=== PATIENT | female | born 1935 | race Caucasian/White ===

== ENCOUNTER → 2016-08-21 | Outpatient (CLI) | payer MEDICARE, BC | END | disposition home or self-care (01) | LOC: LABWHC1 09:46 | PROVIDERS: ATTEND Internal Medicine Interventional Cardiology | DX: E78.2 Mixed hyperlipidemia (principal) | CPT/HCPCS: 36415; 80061; 84443; 84450; 84460 ==

== ENCOUNTER → 2017-03-10 | Outpatient (CLI) | payer MEDICARE, BC ==
[2017-03-10 10:53] LABS: ALT 29 U/L (9-52); AST 17 U/L (14-36); Alkaline Phosphatase 84 U/L (38-126); Anion Gap 8 mmol/L; Blood Urea Nitrogen 15 mg/dL (7-17); Calcium 9.5 mg/dL (8.4-10.2); Carbon Dioxide 28 mmol/L (22-30); Chloride 107 mmol/L (98-107); Cholesterol 185 mg/dL (<200); Glucose 124 mg/dL (74-99); HDL Cholesterol 92 mg/dL (40-60); Non-African American GFR(MDRD) >60 (>60 ml/min/1.73 sqM); Potassium 4.2 mmol/L (3.5-5.1); Sodium 143 mmol/L (137-145); Total Bilirubin 0.5 mg/dL (0.2-1.3); Total Protein 6.4 g/dL (6.3-8.2)
== END | disposition home or self-care (01) ==
LOC: LABWHC1 09:36
PROVIDERS: ATTEND Internal Medicine Interventional Cardiology
DX: E78.2 Mixed hyperlipidemia (principal)
CPT/HCPCS: 36415; 80053; 80061

== ENCOUNTER 2017-06-18 14:38 | Emergency (ER) | payer MEDICARE, BC ==
--- NOTE | 2017-06-18 15:15 | ED ---
General Adult HPI - General Chief complaint: Neuro Symptoms/Deficit Stated complaint: left side facial numbness Time Seen by Provider: 06/18/17 14:55 Source: patient, RN notes reviewed Mode of arrival: ambulatory Limitations: no limitations - History of Present Illness Initial comments: 81-year-old female presents to the emergency department with a chief complaint of numbness to the left side of the face. Patient states this started on Thursday. Patient states she can still feel she can still move the face she still has strength it just feels different in comparison to the right side. 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 She states is been like this since Thursday. Patient states that it comes and goes at random. She went to her doctor today and was referred here.Patient denies any recent fever, chills, shortness of breath, chest pain, back pain, abdominal pain, nausea vomiting, numbness or tingling, dysuria or hematuria, constipation or diarrhea, headaches or visual changes, or any other current symptoms. - Related Data Home Medications Medication Instructions Recorded Confirmed Aspirin 325 mg PO DAILY 10/24/15 06/18/17 Cevimeline [Evoxac] 30 mg PO BID 10/24/15 06/18/17 DULoxetine HCL [Cymbalta] 30 mg PO DAILY 10/24/15 06/18/17 Folic Acid 1 mg PO DAILY 10/24/15 06/18/17 Levothyroxine Sodium [Levoxyl] 112 mcg PO DAILY 10/24/15 06/18/17 Methotrexate Sodium [Methotrexate] 17.5 mg PO WE 10/24/15 06/18/17 Metoprolol Tartrate 25 mg PO BID 10/24/15 06/18/17 Nitroglycerin Sl Tabs [Nitrostat] 0.4 mg SUBLINGUAL Q5M PRN 10/24/15 06/18/17 Omeprazole 20 mg PO DAILY 10/24/15 06/18/17 Cholecalciferol (Vitamin D3) 2,000 unit PO MOTH 06/18/17 06/18/17 [Vitamin D3] Cyanocobalamin [Vitamin B-12] 500 mcg PO TUFR 06/18/17 06/18/17 HYDROcodone/APAP 10-325MG [Wallis 1 tab PO Q6H PRN 06/18/17 06/18/17 10-325] Pregabalin [Lyrica] 75 mg PO BID 06/18/17 06/18/17 Simvastatin [Zocor] 40 mg PO HS 06/18/17 06/18/17 Allergies Allergy/AdvReac Type Severity Reaction Status Date / Time No Known Allergies Allergy Verified 06/18/17 15:44 Review of Systems ROS Statement: Those systems with pertinent positive or pertinent negative responses have been documented in the HPI. ROS Other: All systems not noted in ROS Statement are negative. Past Medical History Past Medical History: Osteoarthritis (OA) Additional Past Medical History / Comment(s): Shogrens, rohit, angina History of Any Multi-Drug Resistant Organisms: None Reported Past Surgical History: Cholecystectomy, Heart Catheterization With Stent, Hysterectomy, Tonsillectomy Additional Past Surgical History / Comment(s): Varicose vein repair, cataract surgery Past Psychological History: No Psychological Hx Reported Smoking Status: Never smoker Past Alcohol Use History: None Reported Past Drug Use History: None Reported General Exam Limitations: no limitations General appearance: alert, in no apparent distress Eye exam: Present: normal appearance, PERRL, EOMI. Absent: scleral icterus, conjunctival injection, periorbital swelling ENT exam: Present: normal exam, mucous membranes moist Neck exam: Present: normal inspection. Absent: tenderness, meningismus, lymphadenopathy Respiratory exam: Present: normal lung sounds bilaterally. Absent: respiratory distress, wheezes, rales, rhonchi, stridor Cardiovascular Exam: Present: regular rate, normal rhythm, normal heart sounds. Absent: systolic murmur, diastolic murmur, rubs, gallop, clicks Extremities exam: Present: normal inspection, full ROM, normal capillary refill. Absent: tenderness, pedal edema, joint swelling, calf tenderness Back exam: Present: normal inspection Neurological exam: Present: alert, oriented X3, CN II-XII intact, normal gait, reflexes normal. Absent: motor sensory deficit (Patient claims is sensation difference however she is able to feel soft light touch in comparison to firm hard touch) Psychiatric exam: Present: normal affect, normal mood Skin exam: Present: warm, dry, intact, normal color. Absent: rash Course Vital Signs 06/18/17 06/18/17 14:40 16:07 Temperature 98.0 F Pulse Rate 82 74 Respiratory 18 18 Rate Blood Pressure 115/64 113/59 O2 Sat by Pulse 98 98 Oximetry - Reevaluation(s) Reevaluation #1: 06/18/17 17:16 Patient currently does take an aspirin every day. EKG Findings - EKG Comments: EKG Findings:: normal sinus rhythm 74 bpm, normal axis, no atopy, no S-T depressions or elevations, with occasional premature ventricular complexes Medical Decision Making - Medical Decision Making 81-year-old female presents for left-sided facial sensation changes. At this time patient's CAT scan and lab work has been reviewed and are negative for any acute process. At this time lab work and CAT scan have been reviewed. At this time results were discussed with the patient. At this time we did discuss close follow-up with her doctor in the morning we discussed continuing the aspirin regimen. We discussed return parameters all questions. Patient family stated they understood and management this plan. This time they will be discharged home. - Lab Data Result diagrams: 06/18/17 14:15 06/18/17 14:15 Lab Results 06/18/17 06/18/17 06/18/17 Range/Units 14:15 14:15 14:15 WBC 8.7 (3.8-10.6) k/uL RBC 4.22 (3.80-5.40) m/uL Hgb 13.0 (11.4-16.0) gm/dL Hct 40.8 (34.0-46.0) % MCV 96.9 (80.0-100.0) fL MCH 30.8 (25.0-35.0) pg MCHC 31.8 (31.0-37.0) g/dL RDW 13.9 (11.5-15.5) % Plt Count 207 (150-450) k/uL Neutrophils % 62 % Lymphocytes % 24 % Monocytes % 8 % Eosinophils % 3 % Basophils % 1 % Neutrophils # 5.4 (1.3-7.7) k/uL Lymphocytes # 2.1 (1.0-4.8) k/uL Monocytes # 0.7 (0-1.0) k/uL Eosinophils # 0.3 (0-0.7) k/uL Basophils # 0.1 (0-0.2) k/uL PT (9.0-12.0) sec INR (<1.2) APTT (22.0-30.0) sec Sodium 145 (137-145) mmol/L Potassium 4.4 (3.5-5.1) mmol/L Chloride 110 H (98-107) mmol/L Carbon Dioxide 24 (22-30) mmol/L Anion Gap 11 mmol/L BUN 19 H (7-17) mg/dL Creatinine 0.72 (0.52-1.04) mg/dL Est GFR (CKD-EPI)AfAm >90 (>60 ml/min/1.73 sqM) Est GFR (CKD-EPI)NonAf 80 (>60 ml/min/1.73 sqM) Glucose 85 (74-99) mg/dL Calcium 9.6 (8.4-10.2) mg/dL Total Bilirubin 0.5 (0.2-1.3) mg/dL AST 19 (14-36) U/L ALT 16 (9-52) U/L Alkaline Phosphatase 91 (38-126) U/L Total Creatine Kinase 52 (30-135) U/L CK-MB (CK-2) 0.5 (0.0-2.4) ng/mL CK-MB (CK-2) Rel Index 1.0 Troponin I <0.012 (0.000-0.034) ng/mL Total Protein 6.7 (6.3-8.2) g/dL Albumin 4.0 (3.5-5.0) g/dL Urine Color Urine Appearance (Clear) Urine pH (5.0-8.0) Ur Specific Ambler (1.001-1.035) Urine Protein (Negative) Urine Glucose (UA) (Negative) Urine Ketones (Negative) Urine Blood (Negative) Urine Nitrite (Negative) Urine Bilirubin (Negative) Urine Urobilinogen (<2.0) mg/dL Ur Leukocyte Esterase (Negative) Urine RBC (0-5) /hpf Urine WBC (0-5) /hpf Ur Squamous Epith Cells (0-4) /hpf Urine Bacteria (None) /hpf Hyaline Casts (0-2) /lpf Urine Mucus (None) /hpf 06/18/17 06/18/17 Range/Units 14:15 16:47 WBC (3.8-10.6) k/uL RBC (3.80-5.40) m/uL Hgb (11.4-16.0) gm/dL Hct (34.0-46.0) % MCV (80.0-100.0) fL MCH (25.0-35.0) pg MCHC (31.0-37.0) g/dL RDW (11.5-15.5) % Plt Count (150-450) k/uL Neutrophils % % Lymphocytes % % Monocytes % % Eosinophils % % Basophils % % Neutrophils # (1.3-7.7) k/uL Lymphocytes # (1.0-4.8) k/uL Monocytes # (0-1.0) k/uL Eosinophils # (0-0.7) k/uL Basophils # (0-0.2) k/uL PT 10.0 (9.0-12.0) sec INR 1.0 (<1.2) APTT 23.4 (22.0-30.0) sec Sodium (137-145) mmol/L Potassium (3.5-5.1) mmol/L Chloride (98-107) mmol/L Carbon Dioxide (22-30) mmol/L Anion Gap mmol/L BUN (7-17) mg/dL Creatinine (0.52-1.04) mg/dL Est GFR (CKD-EPI)AfAm (>60 ml/min/1.73 sqM) Est GFR (CKD-EPI)NonAf (>60 ml/min/1.73 sqM) Glucose (74-99) mg/dL Calcium (8.4-10.2) mg/dL Total Bilirubin (0.2-1.3) mg/dL AST (14-36) U/L ALT (9-52) U/L Alkaline Phosphatase (38-126) U/L Total Creatine Kinase (30-135) U/L CK-MB (CK-2) (0.0-2.4) ng/mL CK-MB (CK-2) Rel Index Troponin I (0.000-0.034) ng/mL Total Protein (6.3-8.2) g/dL Albumin (3.5-5.0) g/dL Urine Color Yellow Urine Appearance Clear (Clear) Urine pH 5.0 (5.0-8.0) Ur Specific Ambler 1.023 (1.001-1.035) Urine Protein Negative (Negative) Urine Glucose (UA) Negative (Negative) Urine Ketones Negative (Negative) Urine Blood Small H (Negative) Urine Nitrite Negative (Negative) Urine Bilirubin Negative (Negative) Urine Urobilinogen <2.0 (<2.0) mg/dL Ur Leukocyte Esterase Moderate H (Negative) Urine RBC 16 H (0-5) /hpf Urine WBC 5 (0-5) /hpf Ur Squamous Epith Cells 1 (0-4) /hpf Urine Bacteria Rare H (None) /hpf Hyaline Casts 4 H (0-2) /lpf Urine Mucus Rare H (None) /hpf - Radiology Data Radiology results: report reviewed, image reviewed Disposition Clinical Impression: Facial paresthesia Disposition: HOME SELF-CARE Condition: Stable Instructions: Paresthesia (ED) Additional Instructions: Please use medication as discussed. Please follow up with family doctor if symptoms have not improved over the next two days. Please return to the emergency room if your symptoms increase or worsen or for any other concerns. Referrals: Edgardo Rios MD [Primary Care Provider] - 1-2 days Time of Disposition: 17:16
[2017-06-18 15:26] LABS: Basophils # (A) 0.1 k/uL (0-0.2); Basophils % (A) 1 %; Eosinophils # (A) 0.3 k/uL (0-0.7); Eosinophils % (A) 3 %; HCT 40.8 % (34.0-46.0); Lymphocytes # (A) 2.1 k/uL (1.0-4.8); Lymphocytes % (A) 24 %; MCH 30.8 pg (25.0-35.0); MCHC 31.8 g/dL (31.0-37.0); MCV 96.9 fL (80.0-100.0); Mean Platelet Volume 8.6; Monocytes # (A) 0.7 k/uL (0-1.0); Monocytes % (A) 8 %; Neutrophils # (A) 5.4 k/uL (1.3-7.7); Neutrophils % (A) 62 %; Platelet Count 207 k/uL (150-450); RBC 4.22 m/uL (3.80-5.40); RDW 13.9 % (11.5-15.5); WBC 8.7 k/uL (3.8-10.6)
[2017-06-18 15:35] LABS: ALT 16 U/L (9-52); AST 19 U/L (14-36); Alkaline Phosphatase 91 U/L (38-126); Anion Gap 11 mmol/L; Blood Urea Nitrogen 19 mg/dL (7-17); Calcium 9.6 mg/dL (8.4-10.2); Carbon Dioxide 24 mmol/L (22-30); Chloride 110 mmol/L (98-107); Glucose 85 mg/dL (74-99); Potassium 4.4 mmol/L (3.5-5.1); Sodium 145 mmol/L (137-145); Total Bilirubin 0.5 mg/dL (0.2-1.3); Total Protein 6.7 g/dL (6.3-8.2)
[2017-06-18 15:39] LABS: Partial Thromboplastin Time 23.4 sec (22.0-30.0)
--- NOTE | 2017-06-18 15:57 | XR ---
EXAMINATION TYPE: XR chest 2V DATE OF EXAM: 06/18/2017 COMPARISON: Prior chest x-ray 12/30/2012 HISTORY: Altered mental status TECHNIQUE: Frontal and lateral views of the chest are obtained on 3 images. FINDINGS: There is no focal air space opacity, pleural effusion, or pneumothorax seen. The cardiac silhouette size is stable, borderline enlarged. Prominent lung volume may be indicative of underlyin g COPD. The osseous structures are intact. The aorta is dense. IMPRESSION: Borderline cardiomegaly..
[2017-06-18 15:59] LABS: Creatine Kinase 52 U/L (30-135)
[2017-06-18 16:11] LABS: Creatine Kinase MB 0.5 ng/mL (0.0-2.4); Troponin I <0.012 ng/mL (0.000-0.034)
--- NOTE | 2017-06-18 16:14 | CT ---
EXAMINATION TYPE: CT brain wo con DATE OF EXAM: 06/18/2017 COMPARISON: 03/31/2013 INDICATION: Left side facial numbness. DLP: 1017.8 mGycm, Automated exposure control for dose reduction was used. CONTRAST: None CT of the brain is performed utilizing 3 mm thick sections through the posterior fossa and 3 mm thick sections through the remaining calvarium. Study is performed within 24 hours of arrival to the hosp ital. No abnormal hyperdensity is present to suggest an acute intracranial hemorrhage. No mass lesion is evident. No acute infarcts are evident. Ventricles and sulci are appropriate for the patient age. Paranasal sinuses and mastoid air cells within the [id number] are clear. IMPRESSIONS: 1. Normal CT Brain
[2017-06-18 17:04] LABS: Appearance,Urine Clear (Clear); Bacteria,Urine Rare /hpf; Bilirubin,Urine Negative (Negative); Blood,Urine Small (Negative); Color,Urine Yellow; Glucose,Urine (UA) Negative (Negative); Hyaline Casts,Urine 4 /lpf (0-2); Ketones,Urine Negative (Negative); Leukocyte Esterase,Urine Moderate (Negative); Mucus,Urine Rare /hpf; Protein,Urine Negative (Negative); RBC,Urine 16 /hpf (0-5); Specific Gravity,Urine 1.023 (1.001-1.035); Squamous Epithelial Cell,Urine 1 /hpf (0-4); Urobilinogen,Urine <2.0 mg/dL (<2.0); WBC,Urine 5 /hpf (0-5)
[2017-06-18 17:24] VITALS: BP 119/66; PULSE 76; RESP 16; TEMP 97.4
== END 2017-06-18 17:26 | disposition home or self-care (01) ==
LOC: EC 14:38
DX: R20.2 Paresthesia of skin (principal); M35.00 Sjogren syndrome, unspecified; Z79.82 Long term (current) use of aspirin; Z79.899 Other long term (current) drug therapy
CPT/HCPCS: 36415; 70450; 71046; 80053; 81001; 82550; 82553; 84484; 85025; 85610; 85730; 93005; 99284

== ENCOUNTER → 2017-07-15 | Outpatient (CLI) | payer MEDICARE, BC ==
--- NOTE | 2017-07-15 15:14 | US ---
EXAMINATION TYPE: US kidneys/renal and bladder DATE OF EXAM: 07/15/2017 COMPARISON: NONE CLINICAL HISTORY: R82.90 Abnormal Urinalysis. EXAM MEASUREMENTS: Right Kidney: 9.7 x 4.0 x 4.3 cm Left Kidney: 10.3 x 4.8 x 4.8 cm Post Void Residual Volume: 17.1 mL Limited due to bowel gas. Right Kidney: Appears wnl Left Kidney: Simple appearing Cystic area noted inf pole measuring approximately 0.9 x 1.1 x 1.0 cm Bladder: Appears wnl Bilateral Jets seen: Yes Normal Post Void Residual: Yes IMPRESSION: 1. Small subcentimeter simple cyst inferior pole left kidney
== END | disposition home or self-care (01) ==
LOC: RADUSWWP 11:55
PROVIDERS: ATTEND Family Medicine
DX: N28.1 Cyst of kidney, acquired (principal)
CPT/HCPCS: 76770

== ENCOUNTER → 2017-10-05 | Outpatient (CLI) | payer MEDICARE, BC ==
[2017-10-05 14:26] LABS: HCT 38.5 % (34.0-46.0); HGB 12.5 gm/dL (11.4-16.0); MCH 32.3 pg (25.0-35.0); MCHC 32.4 g/dL (31.0-37.0); MCV 99.8 fL (80.0-100.0); Macrocytosis Slight; Mean Platelet Volume 7.5; Platelet Count 213 k/uL (150-450); RBC 3.85 m/uL (3.80-5.40); WBC 7.4 k/uL (3.8-10.6)
[2017-10-05 14:41] LABS: Potassium 4.2 mmol/L (3.5-5.1)
== END | disposition home or self-care (01) ==
LOC: LABPAT 13:44
PROVIDERS: ATTEND Internal Medicine Interventional Cardiology
DX: Z01.812 Encounter for preprocedural laboratory examination (principal); I25.10 Atherosclerotic heart disease of native coronary artery without angina pectoris
CPT/HCPCS: 36415; 80051; 82565; 84520; 85027

== ENCOUNTER 2017-10-13 06:32 | Day surgery (SDC) | payer MEDICARE, BC ==
[2017-10-08 17:36] VITALS: BMI 25.9
[~2017-10-13 06:32] MED LIST: ALPRAZolam 0.25 MG TAB PO PRN; ALPRAZolam 0.5 MG TAB PO PRN; ASPIRIN 325 MG TAB PO STA; ATORVASTATIN 80 MG TAB PO STA; NITROGLYCERIN SL TABS 0.4 MG TAB SUBLINGUAL PRN; SODIUM CHLORIDE 0.9% 1,000 ML in EMPTY BAG 1 BAG IV ONE
[2017-10-13 07:04] VITALS: PULSE 74; RESP 20; TEMP 97.9
[2017-10-13] MEDS ORDERED: fentaNYL (PF) 50 MCG/ML 2 ML AMP ONE (07:19)
[2017-10-13] MEDS ORDERED: LIDOCAINE 1% INJ 10MG/ML (20 ML MDV) ONE (07:19)
[2017-10-13] MEDS ORDERED: VERAPAMIL 2.5 MG/ML 2 ML AMP ONE (07:19)
[2017-10-13] MEDS ORDERED: diphenhydrAMINE 50 MG/ML 1 ML VIAL ONE (07:19)
[2017-10-13] MEDS ORDERED: HEPARIN SODIUM 1,000 UN/ML (10ML VL) ONE (07:20)
[2017-10-13] MEDS ORDERED: fentaNYL (PF) 50 MCG/ML 2 ML AMP IVP ONE (07:53)
[2017-10-13] MEDS ORDERED: diphenhydrAMINE 50 MG/ML 1 ML VIAL IVP ONE (07:53)
[2017-10-13] MEDS ORDERED: LIDOCAINE 1% INJ 10MG/ML (20 ML MDV) SQ ONE (07:54)
[2017-10-13] MEDS ORDERED: VERAPAMIL SYRINGE (5 MG/10 ML) INTRAARTER ONE (07:58)
[2017-10-13] MEDS ORDERED: HEPARIN SODIUM 1,000 UN/ML (10ML VL) IV ONE (08:05)
[2017-10-13] MEDS ORDERED: IOPAMIDOL-370 125ML BTL INJ ONE (08:09)
[2017-10-13] MEDS ORDERED: RX INFO: IV CONTRAST WAS GIVEN 1 EACH MISC MISCELLANE PRN (08:25)
[2017-10-13] MEDS ORDERED: HYDROcodone/APAP 10-325MG 1 EACH TAB PO PRN (08:26)
[2017-10-13] MEDS ORDERED: NITROGLYCERIN SL TABS 0.4 MG TAB SUBLINGUAL PRN (08:26)
[2017-10-13] MEDS ORDERED: CYANOCOBALAMIN 500 MCG TAB PO SCH (08:30)
[2017-10-13] MEDS ORDERED: SODIUM CHLORIDE 0.9% 1,000 ML IV SCH (08:30)
--- NOTE | 2017-10-13 08:51 | CC ---
CARDIAC CATHETERIZATION REPORT Mrs. Mcnair is an 81-year-old female with known history of hyperlipidemia, history of coronary artery disease, status post percutaneous revascularization who has been complaining of progressive dyspnea on exertion. She underwent a myocardial perfusion imaging that revealed evidence of partial reversible and apical defect. In view of that, recommendation made regarding cardiac catheterization. The procedure as well as the risks and complications were discussed with the patient who is in full understanding and agreement. PROCEDURE: Patient was brought to cathead operator in a fasting semi-sedated state after receiving fentanyl and Benadryl and achieving moderate conscious sedated state. Using Xylocaine anesthesia in the Seldinger technique, a 6-Congolese sheath was introduced in the right radial artery. Selective right and left coronary angiography performed using 5-Congolese 3.5 bend right and left Simba catheter. Multiple views of the coronary artery including hemiaxial views obtained. Following that a 5-Congolese tight pigtail catheter was introduced in the left ventricle and a 30- degree CROCKETT view of the left ventricle was obtained. Following that, catheter and sheaths were removed. Hemostasis was obtained with deployment of TR band. There was no immediate complication. Patient was returned to her room in stable condition. Of note, the patient received 4000 units of intravenous heparin as well as intra-arterial verapamil. FINDINGS: LEFT MAIN: This is a large-sized vessel bifurcating in the left circumflex, left anterior descending artery. Left main coronary artery has no evidence of high-grade stenosis. LEFT ANTERIOR DESCENDING ARTERY: This is a large-sized vessel reaching toward the apex tapers down distal third giving rise to a small diagonal branch. In the mid segment the left anterior descending artery stented segment is patent with minimal plaque of about 10%. The rest of the vessel has no high-grade stenosis. LEFT CIRCUMFLEX: This is a nondominant large vessel giving rise to 2 large obtuse marginal branches. The left circumflex as well as branches have no evidence of high- grade stenosis. RIGHT CORONARY ARTERY: This is a dominant vessel moderate in caliber bifurcating distally PDA and posterolateral segment branches. The right coronary artery as well as branches have no evidence of obstructive coronary artery disease. LEFT VENTRICULOGRAM: Left ventriculogram was performed in 30-degree CROCKETT view and revealed normal left ventricular size with ejection fraction of 50% to 55%. There was no significant mitral regurgitation. HEMODYNAMICS: There was no gradient across the aortic valve. The left ventricular end- diastolic pressure was 20 mmHg. CONCLUSION: 1. Mild intimal disease in the LAD with no evidence of restenosis. 2. Left ventricular ejection fraction 50% to 55%. RECOMMENDATION: In view of finding anatomy, I recommend continue medical therapy with aggressive coronary risk modification that has been initiated. Those findings and recommendation were discussed with the patient and her family and are in full understanding and agreement. DURATION OF PROCEDURE: 19 minutes. JOB / CHERELLE: [id number] /
--- NOTE | 2017-10-13 08:57 | LTR ---
October 13, 2017 Re: Tamia Mcnair Dear Dr. Rios: I had the opportunity to perform cardiac catheterization on Mrs. Mcnair at [facility] on the 13 of October and a full copy of the procedure note will be forwarded to you. In brief, she was found to have no evidence of restenosis at the site of the prior stenting with mild intimal disease and based on those findings I recommend to continue medical therapy with aggressive coronary risk modification I have initiated. Thank you again for allowing me the opportunity to participate in her care. Please feel free to call for any questions. Sincerely yours, MD LUTHER MoniqueL / JOSELYNN: [phone] /
[2017-10-13] MEDS ORDERED: METOPROLOL TARTRATE 25 MG TAB PO SCH (09:00)
[2017-10-13] MEDS ORDERED: CEVIMELINE 30 MG CAP PO SCH (09:00)
[2017-10-13] MEDS ORDERED: FOLIC ACID 1 MG TAB PO SCH (09:00)
[2017-10-13] MEDS ORDERED: LEVOTHYROXINE 112 MCG TAB PO SCH (09:00)
[2017-10-13] MEDS ORDERED: NON-FORMULARY DRUG (Omeprazole [Omeprazole] 20 MG) PO SCH (09:00)
[2017-10-13] MEDS ORDERED: ASPIRIN 325 MG TAB PO SCH (09:00)
[2017-10-13] MEDS ORDERED: DULoxetine HCL 30 MG CAPSULE.DR PO SCH (09:00)
[2017-10-13 14:03] VITALS: BP 120/57
[2017-10-13] MEDS ORDERED: NON-FORMULARY DRUG (Simvastatin 40 MG) PO SCH (21:00)
[2017-10-14] MEDS ORDERED: METHOTREXATE SODIUM 2.5 MG TAB PO SCH (08:26)
[2017-10-15] MEDS ORDERED: NON-FORMULARY DRUG (Cholecalciferol (Vitamin D3) [Vitamin D3] 2,000 UNIT) PO SCH (08:26)
== END 2017-10-13 13:30 | disposition home or self-care (01) ==
LOC: CATHCVL 06:32
PROVIDERS: ATTEND Internal Medicine Interventional Cardiology
DX: I25.10 Atherosclerotic heart disease of native coronary artery without angina pectoris (principal); R94.39 Abnormal result of other cardiovascular function study; M06.9 Rheumatoid arthritis, unspecified; E78.2 Mixed hyperlipidemia; Z95.5 Presence of coronary angioplasty implant and graft; Z79.82 Long term (current) use of aspirin; Z79.890 Hormone replacement therapy; Z79.899 Other long term (current) drug therapy
CPT/HCPCS: 93458; C1894; C1769; J1200; J2001; J3010; J1644; Q9967

== ENCOUNTER → 2019-06-20 | Outpatient (CLI) | payer MEDICARE, BC ==
--- NOTE | 2019-06-20 15:43 | XR ---
EXAMINATION TYPE: XR elbow complete RT DATE OF EXAM: 06/20/2019 CLINICAL HISTORY: Right elbow pain after fall in December TECHNIQUE: Frontal, lateral and oblique images of the right elbow are obtained. COMPARISON: None FINDINGS: There is no acute fracture/dislocation evident in the right elbow. Old healed small fractu re deformity of the coronoid process. No abnormal fat pad signs are seen. The overlying soft tissue appears unremarkable. IMPRESSION: There is no acute fracture or dislocation in the right elbow.
== END ==
LOC: RADXRMAIN 15:17
PROVIDERS: ATTEND Family Medicine
DX: M25.521 Pain in right elbow (principal)

== ENCOUNTER 2020-07-22 18:41 | Emergency (ER) | payer MEDICARE, BC ==
--- NOTE | 2020-07-22 20:18 | XR ---
EXAMINATION TYPE: XR chest 1V portable DATE OF EXAM: 07/22/2020 COMPARISON: 06/18/2017. HISTORY: Respiratory distress. Suspected Covid pneumonia. TECHNIQUE: Single frontal view of the chest is obtained. FINDINGS: There is moderate bibasilar opacities. No pleural effusion, or pneumothorax seen. The car diac silhouette size is within normal limits. The osseous structures are intact. IMPRESSION: Moderate bibasilar opacities, concerning for infiltrates.
--- NOTE | 2020-07-22 20:28 | ED ---
General Adult HPI - General Chief complaint: Recheck/Abnormal Lab/Rx Stated complaint: weakness Time Seen by Provider: 07/22/20 19:09 Source: patient, EMS Mode of arrival: EMS Limitations: no limitations - History of Present Illness Initial comments: 84-year-old male patient presents to the emergency department today for evaluation of increased weakness and nausea. States she has been having low grade fevers. Patient did test positive for COVID-19 at some point. Patient denies any cough or shortness of breath. States she's been nauseated but denies any vomiting. Denies diarrhea. States she feels generally weak. Denies any other symptoms or concerns. Patient denies any recent rash, chest pain, abdominal pain, back pain, numbness, tingling, dizziness, weakness, hematuria, dysuria, urinary urgency, urinary frequency, headache, visual changes, or any other complaints. - Related Data Home Medications Medication Instructions Recorded Confirmed Cevimeline [Evoxac] 30 mg PO BID 10/24/15 07/22/20 Folic Acid 1 mg PO DAILY 10/24/15 07/22/20 Levothyroxine Sodium [Levoxyl] 112 mcg PO DAILY 10/24/15 07/22/20 Metoprolol Tartrate 25 mg PO DAILY 10/24/15 07/22/20 Omeprazole 20 mg PO DAILY 10/24/15 07/22/20 metHOTREXate sodium [Methotrexate] 25 mg PO Q7D 10/24/15 07/22/20 HYDROcodone/APAP 10-325MG [[place] 1 tab PO Q6H PRN 06/18/17 07/22/20 10-325] Simvastatin [Zocor] 40 mg PO HS 06/18/17 07/22/20 Diclofenac Sodium [Voltaren Gel] 2 gram TOPICAL QID PRN 07/22/20 07/22/20 Furosemide [Lasix] 20 mg PO DAILY 07/22/20 07/22/20 Gabapentin 800 mg PO TID 07/22/20 07/22/20 Venlafaxine HCl ER [Effexor Xr] 150 mg PO DAILY 07/22/20 07/22/20 calcitrioL [Calcitriol] 0.25 mcg PO MOFR 07/22/20 07/22/20 Previous Rx's Medication Instructions Recorded Dexamethasone 6 mg PO DAILY #9 tablet 07/22/20 Nitrofurantoin Monohyd/M-Cryst 100 mg PO Q12HR #14 cap 07/22/20 [Macrobid] Potassium Chloride ER [K-Dur 20] 20 meq PO DAILY #3 tab 07/22/20 Allergies Allergy/AdvReac Type Severity Reaction Status Date / Time No Known Allergies Allergy Verified 07/22/20 21:29 Review of Systems ROS Statement: Those systems with pertinent positive or pertinent negative responses have been documented in the HPI. ROS Other: All systems not noted in ROS Statement are negative. Past Medical History Past Medical History: CVA/TIA, Deep Vein Thrombosis (DVT), GERD/Reflux, Hypertension, Osteoarthritis (OA), Thyroid Disorder Additional Past Medical History / Comment(s): Sjogrens, lupus, hx. leaky valve, SOB w/exertion, hx. DVT leg years ago, TIA couple months ago-no residual effects History of Any Multi-Drug Resistant Organisms: None Reported Past Surgical History: Cholecystectomy, Heart Catheterization, Heart Catheterization With Stent, Hysterectomy, Tonsillectomy Additional Past Surgical History / Comment(s): Varicose vein repair, cataract surgery Past Anesthesia/Blood Transfusion Reactions: No Reported Reaction Date of Last Stent Placement:: 2007 Past Psychological History: No Psychological Hx Reported Smoking Status: Never smoker Past Alcohol Use History: Rare Past Drug Use History: None Reported - Past Family History Mother Family Medical History: No Reported History General Exam Limitations: no limitations General appearance: alert, in no apparent distress, other (This is a well- developed, well-nourished elderly female patient in no acute distress. Vital signs upon presentation temperature 98.0F, pulse 90, respirations 18, blood pr essure 86/48, pulse ox 94% on room air.) Eye exam: Present: normal appearance, PERRL, EOMI. Absent: scleral icterus, conjunctival injection, periorbital swelling ENT exam: Present: normal exam, normal oropharynx, mucous membranes moist Respiratory exam: Present: normal lung sounds bilaterally. Absent: respiratory distress, wheezes, rales, rhonchi, stridor Cardiovascular Exam: Present: regular rate, normal rhythm, normal heart sounds. Absent: systolic murmur, diastolic murmur, rubs, gallop, clicks GI/Abdominal exam: Present: soft, normal bowel sounds. Absent: distended, tenderness, guarding, rebound, rigid Neurological exam: Present: alert, CN II-XII intact. Absent: oriented X3 (Oriented 2) Psychiatric exam: Present: normal affect, normal mood Skin exam: Present: warm, dry, intact, normal color. Absent: rash Course Vital Signs 07/22/20 19:07 Temperature 98 F Pulse Rate 90 Respiratory 18 Rate Blood Pressure 86/48 O2 Sat by Pulse 94 L Oximetry EKG Findings - EKG Comments: EKG Findings:: EKG obtained at 0 shows normal sinus rhythm with a prolonged QT interval. Ventricular rate is 76, CT interval 148, QR moravian 102, QT 438, QTC 492. There is no evidence of ST elevation or depression. Medical Decision Making - Medical Decision Making 84-year-old female patient presents to the emergency department today for increased weakness and occasional fevers. Started having symptoms 5 days ago. Physical examination is unremarkable. She is neurologically intact no focal deficits. She did test positive for COVID-19. Labs reviewed and did reveal CRP of 66.7, LDH of 1112. She did have evidence for urinary tract infection. We did give him one IV dose of Rocephin. Patient's initial vital signs did reveal low blood pressure and low oxygen saturation. While in the department she was g iven IV fluids blood pressures remained over 100 systolic. Unfortunately patient does not qualify for BAM infusion because she received the Xu and Xu vaccine about a week ago. Patient's is at home on hospice and they do not expect him to live for very long. I had a lengthy discussion with the patient and her son and they believe the best place for her to be is at home with her . She will be started on steroids. Given antibiotics for her UTI. Her O2 saturations are borderline with levels at 90-92% on room air. She does not feel short of breath nor does she appear to be in respiratory distress. Return parameters were discussed in great detail. They agreed to return if her symptoms are to worsen. Both son and patient verbalize understanding and agree with this plan. Case discussed with my attending Dr. Zelaya. - Lab Data Result diagrams: 07/22/20 20:16 07/22/20 20:16 Lab Results 07/22/20 07/22/20 07/22/20 Range/Units 20:16 20:16 20:16 WBC 3.3 L (3.8-10.6) k/uL RBC 3.95 (3.80-5.40) m/uL Hgb 13.1 (11.4-16.0) gm/dL Hct 36.8 (34.0-46.0) % MCV 93.2 (80.0-100.0) fL MCH 33.1 (25.0-35.0) pg MCHC 35.6 (31.0-37.0) g/dL RDW 13.6 (11.5-15.5) % Plt Count 136 L (150-450) k/uL MPV 9.0 Neutrophils % 76 % Lymphocytes % 14 % Monocytes % 8 % Eosinophils % 0 % Basophils % 0 % Neutrophils # 2.5 (1.3-7.7) k/uL Lymphocytes # 0.5 L (1.0-4.8) k/uL Monocytes # 0.3 (0-1.0) k/uL Eosinophils # 0.0 (0-0.7) k/uL Basophils # 0.0 (0-0.2) k/uL PT 10.8 (9.0-12.0) sec INR 1.0 (<1.2) APTT 30.1 H (22.0-30.0) sec Sodium 130 L (137-145) mmol/L Potassium 3.0 L (3.5-5.1) mmol/L Chloride 94 L (98-107) mmol/L Carbon Dioxide 27 (22-30) mmol/L Anion Gap 9 mmol/L BUN 17 (7-17) mg/dL Creatinine 0.70 (0.52-1.04) mg/dL Est GFR (CKD-EPI)AfAm >90 (>60 ml/min/1.73 sqM) Est GFR (CKD-EPI)NonAf 80 (>60 ml/min/1.73 sqM) Glucose 140 H (74-99) mg/dL Plasma Lactic Acid Man (0.7-2.0) mmol/L Calcium 8.7 (8.4-10.2) mg/dL Magnesium 1.7 (1.6-2.3) mg/dL Total Bilirubin 0.7 (0.2-1.3) mg/dL AST 69 H (14-36) U/L ALT 27 (4-34) U/L Alkaline Phosphatase 89 (38-126) U/L Lactate Dehydrogenase 1112 H (313-618) U/L C-Reactive Protein 66.7 H (<10.0) mg/L Total Protein 6.7 (6.3-8.2) g/dL Albumin 3.7 (3.5-5.0) g/dL Urine Color Urine Appearance (Clear) Urine pH (5.0-8.0) Ur Specific [place] (1.001-1.035) Urine Protein (Negative) Urine Glucose (UA) (Negative) Urine Ketones (Negative) Urine Blood (Negative) Urine Nitrite (Negative) Urine Bilirubin (Negative) Urine Urobilinogen (<2.0) mg/dL Ur Leukocyte Esterase (Negative) Urine RBC (0-5) /hpf Urine WBC (0-5) /hpf Urine Bacteria (None) /hpf Hyaline Casts (0-2) /lpf Urine Mucus (None) /hpf Coronavirus (PCR) (Not Detectd) 07/22/20 07/22/20 07/22/20 Range/Units 20:16 21:00 Unknown WBC (3.8-10.6) k/uL RBC (3.80-5.40) m/uL Hgb (11.4-16.0) gm/dL Hct (34.0-46.0) % MCV (80.0-100.0) fL MCH (25.0-35.0) pg MCHC (31.0-37.0) g/dL RDW (11.5-15.5) % Plt Count (150-450) k/uL MPV Neutrophils % % Lymphocytes % % Monocytes % % Eosinophils % % Basophils % % Neutrophils # (1.3-7.7) k/uL Lymphocytes # (1.0-4.8) k/uL Monocytes # (0-1.0) k/uL Eosinophils # (0-0.7) k/uL Basophils # (0-0.2) k/uL PT (9.0-12.0) sec INR (<1.2) APTT (22.0-30.0) sec Sodium (137-145) mmol/L Potassium (3.5-5.1) mmol/L Chloride (98-107) mmol/L Carbon Dioxide (22-30) mmol/L Anion Gap mmol/L BUN (7-17) mg/dL Creatinine (0.52-1.04) mg/dL Est GFR (CKD-EPI)AfAm (>60 ml/min/1.73 sqM) Est GFR (CKD-EPI)NonAf (>60 ml/min/1.73 sqM) Glucose (74-99) mg/dL Plasma Lactic Acid Man 1.5 (0.7-2.0) mmol/L Calcium (8.4-10.2) mg/dL Magnesium (1.6-2.3) mg/dL Total Bilirubin (0.2-1.3) mg/dL AST (14-36) U/L ALT (4-34) U/L Alkaline Phosphatase (38-126) U/L Lactate Dehydrogenase (313-618) U/L C-Reactive Protein (<10.0) mg/L Total Protein (6.3-8.2) g/dL Albumin (3.5-5.0) g/dL Urine Color Yellow Urine Appearance Cloudy H (Clear) Urine pH 5.5 (5.0-8.0) Ur Specific [place] 1.006 (1.001-1.035) Urine Protein Trace H (Negative) Urine Glucose (UA) Negative (Negative) Urine Ketones Negative (Negative) Urine Blood Moderate H (Negative) Urine Nitrite Negative (Negative) Urine Bilirubin Negative (Negative) Urine Urobilinogen <2.0 (<2.0) mg/dL Ur Leukocyte Esterase Moderate H (Negative) Urine RBC 2 (0-5) /hpf Urine WBC 35 H (0-5) /hpf Urine Bacteria Many H (None) /hpf Hyaline Casts 1 (0-2) /lpf Urine Mucus Rare H (None) /hpf Coronavirus (PCR) Detected A (Not Detectd) - Radiology Data Radiology results: report reviewed, image reviewed One view x-ray of the chest is obtained. Report reviewed in its entirety. Impression by Dr. Hannon shows moderate blood basilar opacities, concerning for infiltrates. Disposition Clinical Impression: COVID-19, Urinary tract infection Disposition: HOME SELF-CARE Condition: Good Instructions (If sedation given, give patient instructions): Coronavirus Disease 2019 (COVID-19), Urinary Tract Infection in Women (ED) Additional Instructions: Completes all medications in full. Follow-up with the primary care physician for recheck in 1-2 days., Potassium should be rechecked within the week. Return for any new, worsening, or concerning symptoms. Prescriptions: Dexamethasone 6 mg PO DAILY #9 tablet Potassium Chloride ER [K-Dur 20] 20 meq PO DAILY #3 tab Nitrofurantoin Monohyd/M-Cryst [Macrobid] 100 mg PO Q12HR #14 cap Is patient prescribed a controlled substance at d/c from ED?: No Referrals: Edgardo Rios MD [Primary Care Provider] - 1-2 days Time of Disposition: 23:19
[2020-07-22] MEDS ORDERED: SODIUM CHLORIDE 0.9% 1,000 ML IV ONE (20:30)
[2020-07-22 20:43] LABS: Basophils % (A) 0 %; Eosinophils % (A) 0 %; HCT 36.8 % (34.0-46.0); HGB 13.1 gm/dL (11.4-16.0); Lymphocytes # (A) 0.5 k/uL (1.0-4.8); Lymphocytes % (A) 14 %; MCH 33.1 pg (25.0-35.0); MCHC 35.6 g/dL (31.0-37.0); MCV 93.2 fL (80.0-100.0); Monocytes # (A) 0.3 k/uL (0-1.0); Monocytes % (A) 8 %; Neutrophils # (A) 2.5 k/uL (1.3-7.7); Neutrophils % (A) 76 %; Platelet Count 136 k/uL (150-450); RBC 3.95 m/uL (3.80-5.40); RDW 13.6 % (11.5-15.5); WBC 3.3 k/uL (3.8-10.6)
[2020-07-22 20:50] LABS: Partial Thromboplastin Time 30.1 sec (22.0-30.0); Prothrombin Time 10.8 sec (9.0-12.0)
[2020-07-22 20:54] LABS: ALT 27 U/L (4-34); AST 69 U/L (14-36); African American GFR (CKD) >90 (>60 ml/min/1.73 sqM); Albumin 3.7 g/dL (3.5-5.0); Alkaline Phosphatase 89 U/L (38-126); Anion Gap 9 mmol/L; Blood Urea Nitrogen 17 mg/dL (7-17); C Reactive Protein 66.7 mg/L (<10.0); Calcium 8.7 mg/dL (8.4-10.2); Carbon Dioxide 27 mmol/L (22-30); Chloride 94 mmol/L (98-107); Glucose 140 mg/dL (74-99); LDH 1112 U/L (313-618); Magnesium 1.7 mg/dL (1.6-2.3); Non-African American GFR(CKD) 80 (>60 ml/min/1.73 sqM); Sodium 130 mmol/L (137-145); Total Bilirubin 0.7 mg/dL (0.2-1.3); Total Protein 6.7 g/dL (6.3-8.2)
[2020-07-22] MEDS ORDERED: POTASSIUM CHLORIDE ER 20 MEQ TAB.ER PO STA (20:55)
[2020-07-22 22:47] LABS: Appearance,Urine Cloudy (Clear); Bacteria,Urine Many /hpf; Bilirubin,Urine Negative (Negative); Blood,Urine Moderate (Negative); Color,Urine Yellow; Glucose,Urine (UA) Negative (Negative); Hyaline Casts,Urine 1 /lpf (0-2); Ketones,Urine Negative (Negative); Leukocyte Esterase,Urine Moderate (Negative); Mucus,Urine Rare /hpf; Nitrite,Urine Negative (Negative); PH, Urine 5.5 (5.0-8.0); Protein,Urine Trace (Negative); RBC,Urine 2 /hpf (0-5); Specific Gravity,Urine 1.006 (1.001-1.035); Urobilinogen,Urine <2.0 mg/dL (<2.0); WBC,Urine 35 /hpf (0-5)
[2020-07-22] MEDS ORDERED: cefTRIAXone IN SWFI 1,000 MG/10 ML SYRINGE IVP STA (23:17)
[2020-07-22] MEDS ORDERED: DEXAMETHASONE SOD PHOSPHATE 10 MG/ML 1 ML VIAL IV STA (23:17)
[2020-07-23 01:19] VITALS: BP 111/72; PULSE 80; RESP 16; TEMP 98.7
[2020-07-23 09:46] LABS: Ferritin 931.6 ng/mL (10.0-291.0)
== END 2020-07-23 | disposition home or self-care (01) ==
LOC: EC 18:41
DX: U07.1 COVID-19 (principal); N39.0 Urinary tract infection, site not specified; I10 Essential (primary) hypertension; K21.9 Gastro-esophageal reflux disease without esophagitis; M19.90 Unspecified osteoarthritis, unspecified site; Z79.899 Other long term (current) drug therapy; Z86.73 Personal history of transient ischemic attack (TIA), and cerebral infarction without residual deficits; Z86.718 Personal history of other venous thrombosis and embolism
CPT/HCPCS: 36415; 71045; 80053; 81001; 82728; 83605; 83615; 83735; 84145; 85025; 85610; 85730; 86140; 87040; 87077; 87086; 87186; 87635; 93005; 99285

== ENCOUNTER 2020-07-27 14:59 | Inpatient (IN) | payer MEDICARE, BC ==
[2020-07-27 16:09] LABS: Basophils % (A) 0 %; Eosinophils % (A) 0 %; HCT 43.6 % (34.0-46.0); HGB 14.1 gm/dL (11.4-16.0); Lymphocytes # (A) 0.6 k/uL (1.0-4.8); Lymphocytes % (A) 6 %; MCH 31.5 pg (25.0-35.0); MCHC 32.3 g/dL (31.0-37.0); MCV 97.4 fL (80.0-100.0); Mean Platelet Volume 9.2; Monocytes # (A) 0.1 k/uL (0-1.0); Monocytes % (A) 1 %; Neutrophils # (A) 8.2 k/uL (1.3-7.7); Neutrophils % (A) 92 %; Platelet Count 174 k/uL (150-450); RBC 4.48 m/uL (3.80-5.40); RDW 14.4 % (11.5-15.5); WBC 8.9 k/uL (3.8-10.6)
[2020-07-27 16:15] LABS: Potassium 3.9 mmol/L (3.5-5.1)
--- NOTE | 2020-07-27 16:15 | ED ---
General Adult HPI <Juan Villegas - Last Filed: 07/27/20 16:52> - General Source: patient, family, EMS Mode of arrival: EMS Limitations: physical limitation <Obed Mas - Last Filed: 07/27/20 18:12> - General Chief complaint: Shortness of Breath Stated complaint: weakness/ams/covid+ Time Seen by Provider: 07/27/20 15:30 - History of Present Illness Initial comments: Patient is an 84-year-old female with a complicated past medical history including TIA, DVT GERD hypertension and thyroid disorder who presents to the emergency room for a chief complaint of weakness. Patient tested positive for Coronavirus 6 days ago. Patient reports she is unsure when her symptoms started but does know it was at least a few days before that. Patient reports she believes she got this from her who recently 4 days ago unfortunately. 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 Patient states she can no longer get around her house. States she is short of breath. States she is very weak. She thinks she wore herself out caring for him. Patient states she needs help and cannot care for herself at home. Patient presents on a nonrebreather.Patient has no other complaints at this time including chest pain, abdominal pain, nausea or vomiting, headache, or visual ch anges. (Obed Mas) - Related Data Home Medications Medication Instructions Recorded Confirmed Cevimeline [Evoxac] 30 mg PO BID 10/24/15 07/27/20 Folic Acid 1 mg PO DAILY 10/24/15 07/27/20 Levothyroxine Sodium [Levoxyl] 112 mcg PO DAILY 10/24/15 07/27/20 Metoprolol Tartrate 25 mg PO DAILY 10/24/15 07/27/20 Omeprazole 20 mg PO DAILY 10/24/15 07/27/20 metHOTREXate sodium [Methotrexate] 25 mg PO Q7D 10/24/15 07/27/20 HYDROcodone/APAP 10-325MG [[place] 1 tab PO Q6H PRN 06/18/17 07/27/20 10-325] Simvastatin [Zocor] 40 mg PO HS 06/18/17 07/27/20 Diclofenac Sodium [Voltaren Gel] 2 gram TOPICAL QID PRN 07/22/20 07/27/20 Furosemide [Lasix] 20 mg PO DAILY 07/22/20 07/27/20 Gabapentin 800 mg PO TID 07/22/20 07/27/20 Venlafaxine HCl ER [Effexor Xr] 150 mg PO DAILY 07/22/20 07/27/20 calcitrioL [Calcitriol] 0.25 mcg PO MOFR 07/22/20 07/27/20 Previous Rx's Medication Instructions Recorded Dexamethasone 6 mg PO DAILY #9 tablet 07/22/20 Nitrofurantoin Monohyd/M-Cryst 100 mg PO Q12HR #14 cap 07/22/20 [Macrobid] Potassium Chloride ER [K-Dur 20] 20 meq PO DAILY #3 tab 07/22/20 Allergies Allergy/AdvReac Type Severity Reaction Status Date / Time No Known Allergies Allergy Verified 07/27/20 17:12 Review of Systems ROS Other: All systems not noted in ROS Statement are negative. <Juan Villegas - Last Filed: 07/27/20 16:52> ROS Other: All systems not noted in ROS Statement are negative. <Obed Mas - Last Filed: 07/27/20 18:12> ROS Statement: Those systems with pertinent positive or pertinent negative responses have been documented in the HPI. Past Medical History Past Medical History: CVA/TIA, Deep Vein Thrombosis (DVT), GERD/Reflux, Hypertension, Osteoarthritis (OA), Thyroid Disorder Additional Past Medical History / Comment(s): Sjogrens, lupus, hx. leaky valve, SOB w/exertion, hx. DVT leg years ago, TIA couple months ago-no residual effects, COVID+ History of Any Multi-Drug Resistant Organisms: None Reported Past Surgical History: Cholecystectomy, Heart Catheterization, Heart Catheterization With Stent, Hysterectomy, Tonsillectomy Additional Past Surgical History / Comment(s): Varicose vein repair, cataract surgery Past Anesthesia/Blood Transfusion Reactions: No Reported Reaction Date of Last Stent Placement:: 2007 Past Psychological History: No Psychological Hx Reported Smoking Status: Never smoker Past Alcohol Use History: Rare Past Drug Use History: None Reported - Past Family History Mother Family Medical History: No Reported History <Obed Mas P - Last Filed: 07/27/20 18:12> General Exam Limitations: physical limitation General appearance: alert, in no apparent distress Head exam: Present: atraumatic, normocephalic, normal inspection Eye exam: Present: normal appearance, PERRL, EOMI. Absent: scleral icterus, conjunctival injection, periorbital swelling ENT exam: Present: normal exam Neck exam: Present: normal inspection, full ROM. Absent: tenderness, meningismus, lymphadenopathy Respiratory exam: Present: normal lung sounds bilaterally. Absent: respiratory distress, wheezes, rales, rhonchi, stridor Cardiovascular Exam: Present: regular rate, normal rhythm, normal heart sounds. Absent: systolic murmur, diastolic murmur, rubs, gallop, clicks GI/Abdominal exam: Present: soft, normal bowel sounds. Absent: distended, tenderness, guarding, rebound, rigid Neurological exam: Present: alert <Obed Mas - Last Filed: 07/27/20 18:12> Course <Juan Villegas - Last Filed: 07/27/20 16:52> Vital Signs 07/27/20 07/27/20 07/27/20 15:05 15:13 16:25 Temperature 97.0 F L Pulse Rate 79 82 Respiratory 20 16 Rate Blood Pressure 103/69 114/70 O2 Sat by Pulse 80 L 94 L 92 L Oximetry 07/27/20 17:57 Temperature 97.3 F L Pulse Rate 78 Respiratory 18 Rate Blood Pressure 115/73 O2 Sat by Pulse 92 L Oximetry - Reevaluation(s) Reevaluation #1: 07/27/20 16:52 PA supervision: I pursued a [id number] evaluation the patient did present with complaint shortness of breath she did had diminished breath sounds. She is a very a sonic female. She will be admitted did discuss case with Dr. Billings who is covering Dr. Rios. (Juan Villegas) EKG Findings - EKG Comments: EKG Findings:: Normal sinus rhythm, prolonged QT, QTc 492, GA int 136, QRS 98 <Obed Mas - Last Filed: 07/27/20 18:12> Medical Decision Making - Lab Data Result diagrams: 07/27/20 15:10 07/27/20 15:10 <Juan Villegas - Last Filed: 07/27/20 16:52> - Lab Data Result diagrams: 07/27/20 15:10 07/27/20 15:10 <Obed Mas - Last Filed: 07/27/20 18:12> - Medical Decision Making Patient presents on a nonrebreather. She was titrated down to 4 L nasal cannula, maintaining a 92% oxygen saturation. CBC unremarkable. CMP does show evidence of dehydration. Patient was started on maintenance fluids. D-dimer was significantly elevated. Therefore chest CT was obtained which showed extensive infiltrates. No evidence of pulmonary embolism. Patient will be admitted to the hospital. Will be continued on Decadron. Pulmonology will be consulted. (bOed Mas) - Lab Data Lab Results 07/27/20 07/27/20 07/27/20 Range/Units 15:10 15:10 15:10 WBC 8.9 (3.8-10.6) k/uL RBC 4.48 (3.80-5.40) m/uL Hgb 14.1 (11.4-16.0) gm/dL Hct 43.6 (34.0-46.0) % MCV 97.4 (80.0-100.0) fL MCH 31.5 (25.0-35.0) pg MCHC 32.3 (31.0-37.0) g/dL RDW 14.4 (11.5-15.5) % Plt Count 174 (150-450) k/uL MPV 9.2 Neutrophils % 92 % Lymphocytes % 6 % Monocytes % 1 % Eosinophils % 0 % Basophils % 0 % Neutrophils # 8.2 H (1.3-7.7) k/uL Lymphocytes # 0.6 L (1.0-4.8) k/uL Monocytes # 0.1 (0-1.0) k/uL Eosinophils # 0.0 (0-0.7) k/uL Basophils # 0.0 (0-0.2) k/uL PT 10.8 (9.0-12.0) sec INR 1.0 (<1.2) APTT 23.1 (22.0-30.0) sec D-Dimer 9.24 H (<0.60) mg/L FEU Sodium 132 L (137-145) mmol/L Potassium 3.9 (3.5-5.1) mmol/L Chloride 95 L (98-107) mmol/L Carbon Dioxide 29 (22-30) mmol/L Anion Gap 8 mmol/L BUN 29 H (7-17) mg/dL Creatinine 0.86 (0.52-1.04) mg/dL Est GFR (CKD-EPI)AfAm 72 (>60 ml/min/1.73 sqM) Est GFR (CKD-EPI)NonAf 63 (>60 ml/min/1.73 sqM) Glucose 157 H (74-99) mg/dL Calcium 8.5 (8.4-10.2) mg/dL Magnesium 2.0 (1.6-2.3) mg/dL Total Bilirubin 1.1 (0.2-1.3) mg/dL AST 55 H (14-36) U/L ALT 30 (4-34) U/L Alkaline Phosphatase 88 (38-126) U/L Lactate Dehydrogenase 1671 H (313-618) U/L C-Reactive Protein 6.7 H (<1.0) mg/dL Total Protein 6.5 (6.3-8.2) g/dL Albumin 3.4 L (3.5-5.0) g/dL Coronavirus (PCR) (Not Detectd) 07/27/20 Range/Units 16:53 WBC (3.8-10.6) k/uL RBC (3.80-5.40) m/uL Hgb (11.4-16.0) gm/dL Hct (34.0-46.0) % MCV (80.0-100.0) fL MCH (25.0-35.0) pg MCHC (31.0-37.0) g/dL RDW (11.5-15.5) % Plt Count (150-450) k/uL MPV Neutrophils % % Lymphocytes % % Monocytes % % Eosinophils % % Basophils % % Neutrophils # (1.3-7.7) k/uL Lymphocytes # (1.0-4.8) k/uL Monocytes # (0-1.0) k/uL Eosinophils # (0-0.7) k/uL Basophils # (0-0.2) k/uL PT (9.0-12.0) sec INR (<1.2) APTT (22.0-30.0) sec D-Dimer (<0.60) mg/L FEU Sodium (137-145) mmol/L Potassium (3.5-5.1) mmol/L Chloride (98-107) mmol/L Carbon Dioxide (22-30) mmol/L Anion Gap mmol/L BUN (7-17) mg/dL Creatinine (0.52-1.04) mg/dL Est GFR (CKD-EPI)AfAm (>60 ml/min/1.73 sqM) Est GFR (CKD-EPI)NonAf (>60 ml/min/1.73 sqM) Glucose (74-99) mg/dL Calcium (8.4-10.2) mg/dL Magnesium (1.6-2.3) mg/dL Total Bilirubin (0.2-1.3) mg/dL AST (14-36) U/L ALT (4-34) U/L Alkaline Phosphatase (38-126) U/L Lactate Dehydrogenase (313-618) U/L C-Reactive Protein (<1.0) mg/dL Total Protein (6.3-8.2) g/dL Albumin (3.5-5.0) g/dL Coronavirus (PCR) Detected A (Not Detectd) Disposition <Juan Villegas - Last Filed: 07/27/20 16:52> Is patient prescribed a controlled substance at d/c from ED?: No Time of Disposition: 18:12 <Obed Mas - Last Filed: 07/27/20 18:12> Clinical Impression: COVID-19, Urinary tract infection, Hypoxia, Dehydration, Prolonged QT interval Disposition: ADMITTED IP TO THIS HOSP Referrals: Edgardo Rios MD [Primary Care Provider] - 1-2 days
[2020-07-27 16:16] LABS: Albumin 3.4 g/dL (3.5-5.0); C Reactive Protein 6.7 mg/dL (<1.0); Calcium 8.5 mg/dL (8.4-10.2); Total Bilirubin 1.1 mg/dL (0.2-1.3); Total Protein 6.5 g/dL (6.3-8.2)
--- NOTE | 2020-07-27 16:32 | XR ---
EXAMINATION TYPE: XR chest 1V portable DATE OF EXAM: 07/27/2020 Comparison: 07/22/2020 Clinical History: 84-year-old female shortness of breath, weakness, altered mental status, Suspected COVID-19 pneumonia Findings: Heart mildly enlarged. Hyperinflation. Increasing patchy left basilar opacity. Groundglass density ri ght mid to lower lung is increased as well. Impression: COPD with worsening groundglass infiltrate in the right lung and worsening left basilar infiltrate.
[2020-07-27 16:48] LABS: Partial Thromboplastin Time 23.1 sec (22.0-30.0); Prothrombin Time 10.8 sec (9.0-12.0)
--- NOTE | 2020-07-27 18:00 | CT ---
EXAMINATION TYPE: CT chest angio for PE DATE OF EXAM: 07/27/2020 COMPARISON: 12/21/2014 HISTORY: Difficulty breathing. CT DLP: 259.3 mGycm Automated exposure control for dose reduction was used. CONTRAST: Performed with IV Contrast, patient injected with 100 mL of Isovue 370. There are 3-D post processed images. There is extensive interstitial and airspace infiltrate in the lower lung roque. There is also simil ar infiltrate right upper lobe with groundglass density. There is no mediastinal adenopathy. Thoracic aorta is intact. Ascending aorta measures 3.2 cm. There is no dissection. There is normal contrast opacification of the pulmonary arteries. There are no filling defects. There are bilateral bronchial lymph nodes measuring up to 1 cm. There is no pneumothorax. There is no pleu ral effusion. There is no pericardial effusion. Heart is slightly enlarged. Thoracic spine is intact without evidence of compression fracture. There is mild dextroscoliosis. IMPRESSION: No evidence of pulmonary embolism. Extensive pulmonary infiltrates consistent with pneumonia which are new compared to old exam. There i s cardiomegaly which is new compared to old exam. No pleural fluid seen to suggest heart failure.
[2020-07-27] MEDS ORDERED: SODIUM CHLORIDE 0.9% 1,000 ML IV STA (18:06)
[2020-07-27] MEDS ORDERED: NALOXONE 0.4 MG/ML 1 ML VIAL IV PRN (18:09)
[2020-07-27] MEDS ORDERED: HYDROcodone/APAP 10-325MG 1 EACH TAB PO PRN (18:10)
[2020-07-27] MEDS ORDERED: DICLOFENAC SODIUM GEL 100 GM TUBE TOPICAL PRN (18:10)
[2020-07-27] MEDS ORDERED: REMDESIVIR 200 MG in SODIUM CHLORIDE 0.9% 250 ML IVPB ONE (20:00)
[2020-07-27] MEDS: GABAPENTIN 400 MG CAP PO SCH (20:59)
[2020-07-27] MEDS: CEVIMELINE 30 MG CAP PO SCH (20:59)
[2020-07-27] MEDS: NITROFURANTOIN MONOHYD/M-CRYST 100 MG CAP PO SCH (20:59)
[2020-07-27] MEDS: ATORVASTATIN 20 MG TAB PO SCH (20:59)
[2020-07-27] MEDS: ENOXAPARIN 30 MG/0.3 ML SYRINGE SQ SCH (21:00)
[2020-07-27] MEDS ORDERED: METOPROLOL TARTRATE 25 MG TAB PO STA (22:43)
[2020-07-28 01:20] LABS: Ferritin 982.2 ng/mL (10.0-291.0)
[2020-07-28 08:06] LABS: Basophils % (A) 0 %; Eosinophils % (A) 0 %; HGB 13.8 gm/dL (11.4-16.0); Lymphocytes # (A) 0.8 k/uL (1.0-4.8); Lymphocytes % (A) 13 %; MCH 32.1 pg (25.0-35.0); MCHC 33.7 g/dL (31.0-37.0); MCV 95.2 fL (80.0-100.0); Mean Platelet Volume 8.8; Monocytes # (A) 0.2 k/uL (0-1.0); Monocytes % (A) 3 %; Neutrophils # (A) 5.1 k/uL (1.3-7.7); Neutrophils % (A) 83 %; Platelet Count 184 k/uL (150-450); RBC 4.31 m/uL (3.80-5.40); RDW 13.6 % (11.5-15.5); WBC 6.2 k/uL (3.8-10.6)
[2020-07-28 08:20] LABS: ALT 27 U/L (4-34); AST 41 U/L (14-36); African American GFR (CKD) >90 (>60 ml/min/1.73 sqM); Albumin 3.3 g/dL (3.5-5.0); Albumin/Globulin Ratio 1.1; Alkaline Phosphatase 92 U/L (38-126); Anion Gap 7 mmol/L; Blood Urea Nitrogen 22 mg/dL (7-17); C Reactive Protein 7.9 mg/dL (<1.0); Calcium 8.9 mg/dL (8.4-10.2); Carbon Dioxide 30 mmol/L (22-30); Chloride 99 mmol/L (98-107); Globulin 2.9 g/dL; Glucose 91 mg/dL (74-99); LDH 1408 U/L (313-618); Non-African American GFR(CKD) 81 (>60 ml/min/1.73 sqM); Potassium 3.7 mmol/L (3.5-5.1); Sodium 136 mmol/L (137-145); Total Bilirubin 0.9 mg/dL (0.2-1.3); Total Protein 6.2 g/dL (6.3-8.2)
--- NOTE | 2020-07-28 08:41 | XR ---
EXAMINATION TYPE: XR chest 1V portable DATE OF EXAM: 07/28/2020 CLINICAL HISTORY: Difficulty breathing and covid progress study. TECHNIQUE: Single AP portable upright view of the chest is obtained. COMPARISON: Chest x-ray from one day earlier and older studies. CTA chest one day earlier. FINDINGS: Background chronic emphysematous change with diffuse right lung and left lower lung opacit ies. Stable cardiomegaly. Osseous structures remain demineralized. IMPRESSION: Chronic emphysematous change and cardiomegaly with diffuse right lung and left lower lung opacities consistent with covid-19 infection. No significant change from one day earlier.
[2020-07-28] MEDS: CEVIMELINE 30 MG CAP PO SCH ×2 (09:00→20:35)
[2020-07-28] MEDS ORDERED: METOPROLOL TARTRATE 25 MG TAB PO SCH (09:00)
[2020-07-28] MEDS: NITROFURANTOIN MONOHYD/M-CRYST 100 MG CAP PO SCH (09:00)
[2020-07-28] MEDS: PANTOPRAZOLE 40 MG/10 ML VIAL IV SCH (09:01)
[2020-07-28] MEDS: DEXAMETHASONE SOD PHOSPHATE 10 MG/ML 1 ML VIAL IV SCH (09:01)
[2020-07-28] MEDS: VENLAFAXINE HCL ER 150 MG CAP PO SCH (09:01)
[2020-07-28] MEDS: LEVOTHYROXINE 112 MCG TAB PO SCH (09:01)
[2020-07-28] MEDS: GABAPENTIN 400 MG CAP PO SCH ×3 (09:02→20:35)
[2020-07-28] MEDS: POTASSIUM CHLORIDE ER 20 MEQ TAB.ER PO SCH (09:13)
[2020-07-28] MEDS: FOLIC ACID 1 MG TAB PO SCH (09:13)
[2020-07-28] MEDS: ENOXAPARIN 30 MG/0.3 ML SYRINGE SQ SCH ×2 (09:14→20:35)
--- NOTE | 2020-07-28 16:28 | P.CNPUL ---
History of Present Illness Consult date: 07/27/20 Reason for consult: dyspnea, hypoxemia, pneumonia History of present illness: 84-year-old female patient presented to the hospital because of symptoms of weakness and shortness of breath. the patient had a positive COVID-19 test 6 days ago. She was also symptomatic. She days prior to that.She has been COVID- 19 positive and her from complications of COVID-19 infection approximately 4 days ago. The patient has been living alone. She has been quite debilitated and she is not getting around her house and she's been feeling very weak. No complaints of chest pain or abdominal pain or nausea or vomiting or headache or altered mentation. In the emergency, the patient was afebrile. Pulse ox was 92% on 4 L of oxygen by nasal cannula. She looked quite dehydrated and she was started on IV fluids. Blood work showed a white cell count of 8.9 and the patient some lymphopenia. Normal coagulation profile. D-dimer was 9.2. LFTs were abnormal with an AST of 55, ALT of 30, alk phos of 88, LDH was 1671, CRP was 6.7 and COVID-19 was positive. The patient's chest x-ray showed ground glass changes in the right lung and the CAT scan of the chest was also done that showed diffuse ground glass pulmonary infiltrates involving the right lung made in the lung bases addition to some limited change in the left lower lobe. The p atient was started on Decadron 6 g IV every 24 hours.she was also started on Decadron 45 mg subcu every 12 hours. She is also on vitamin C, vitamin D and zinc Review of Systems 14 point review of system was done and the positive findings are old mentionable history of present illness Constitutional: Reports fatigue, Reports weakness Past Medical History Past Medical History: Coronary Artery Disease (CAD), CVA/TIA, Deep Vein Thrombosis (DVT), GERD/Reflux, Hypertension, Osteoarthritis (OA), Thyroid Diso rder Additional Past Medical History / Comment(s): Sjogren's disease, lupus, history of DVT many years back, history of TIA without any residual deficits, hypertension, hypothyroidism, osteoarthritis, previous history of CVA, coronary artery disease with previous history of coronary stent insertion in the mid LAD back in 2008 and repeat cardiac catheterization that was done in 2019 showed patent coronary arteries. History of Any Multi-Drug Resistant Organisms: None Reported Past Surgical History: Cholecystectomy, Heart Catheterization, Heart Catheterization With Stent, Hysterectomy, Tonsillectomy Additional Past Surgical History / Comment(s): Varicose vein repair, cataract surgery Past Anesthesia/Blood Transfusion Reactions: No Reported Reaction Date of Last Stent Placement:: 2007 Past Psychological History: No Psychological Hx Reported Smoking Status: Never smoker Past Alcohol Use History: Rare Past Drug Use History: None Reported - Past Family History Mother Family Medical History: No Reported History Medications and Allergies Home Medications Medication Instructions Recorded Confirmed Type Cevimeline [Evoxac] 30 mg PO BID 10/24/15 07/27/20 History Folic Acid 1 mg PO DAILY 10/24/15 07/27/20 History Levothyroxine Sodium [Levoxyl] 112 mcg PO DAILY 10/24/15 07/27/20 History Metoprolol Tartrate 25 mg PO DAILY 10/24/15 07/27/20 History Omeprazole 20 mg PO DAILY 10/24/15 07/27/20 History metHOTREXate sodium [Methotrexate] 25 mg PO Q7D 10/24/15 07/27/20 History HYDROcodone/APAP 10-325MG [[place] 1 tab PO Q6H PRN 06/18/17 07/27/20 History 10-325] Simvastatin [Zocor] 40 mg PO HS 06/18/17 07/27/20 History Dexamethasone 6 mg PO DAILY #9 tablet 07/22/20 07/27/20 Rx Diclofenac Sodium [Voltaren Gel] 2 gram TOPICAL QID PRN 07/22/20 07/27/20 History Furosemide [Lasix] 20 mg PO DAILY 07/22/20 07/27/20 History Gabapentin 800 mg PO TID 07/22/20 07/27/20 History Nitrofurantoin Monohyd/M-Cryst 100 mg PO Q12HR #14 cap 07/22/20 07/27/20 Rx [Macrobid] Potassium Chloride ER [K-Dur 20] 20 meq PO DAILY #3 tab 07/22/20 07/27/20 Rx Venlafaxine HCl ER [Effexor Xr] 150 mg PO DAILY 07/22/20 07/27/20 History calcitrioL [Calcitriol] 0.25 mcg PO MOFR 07/22/20 07/27/20 History Allergies Allergy/AdvReac Type Severity Reaction Status Date / Time No Known Allergies Allergy Verified 07/27/20 17:12 Physical Exam Vitals: Vital Signs Temp Pulse Resp BP Pulse Ox 07/27/20 17:57 97.3 F L 78 18 115/73 92 L 07/27/20 16:25 82 16 114/70 92 L 07/27/20 15:13 94 L 07/27/20 15:05 97.0 F L 79 20 103/69 80 L Intake and Output 07/27/20 07/27/20 07/27/20 06:59 14:59 22:59 Other: Weight 65.771 kg Gen. appearance, comfortable nontoxic looking, her breathing is slightly labored. Head exam was generally normal. There was no scleral icterus or corneal arcus. Mucous membranes were moist. Neck was supple and without jugular venous distension, thyromegaly, or carotid bruits. Carotids were easily palpable bilaterally. There was no adenopathy. Lungs sounds are diminished in the lung bases and the patient is crackles on the right side of the lung. Maintained on basis. More so on the right. Cardiac exam revealed the PMI to be normally situated and sized. The rhythm was regular and no extrasystoles were noted during several minutes of auscultation. The first and second heart sounds were normal and physiologic splitting of the second heart sound was noted. There were no murmurs, rubs, clicks, or gallops. Abdominal exam revealed normal bowel sounds. The abdomen was soft, non-tender, and without masses, organomegaly, or appreciable enlargement of the abdominal aorta. Examination of the extremities revealed easily palpable radial, femoral and pedal pulses. There was no cyanosis, clubbing or edema. Examination of the skin revealed no evidence of significant rashes, suspicious appearing nevi or other concerning lesions. Results - Laboratory Findings CBC and BMP: 07/27/20 15:10 07/27/20 15:10 PT/INR, D-dimer PT 10.8 sec (9.0-12.0) 07/27/20 15:10 INR 1.0 (<1.2) 07/27/20 15:10 D-Dimer 9.24 mg/L FEU (<0.60) H 07/27/20 15:10 Abnormal lab findings: Abnormal Labs 07/27/20 07/27/20 07/27/20 15:10 15:10 15:10 Neutrophils # 8.2 H Lymphocytes # 0.6 L D-Dimer 9.24 H Sodium 132 L Chloride 95 L BUN 29 H Glucose 157 H AST 55 H Lactate Dehydrogenase 1671 H C-Reactive Protein 6.7 H Albumin 3.4 L Coronavirus (PCR) 07/27/20 16:53 Neutrophils # Lymphocytes # D-Dimer Sodium Chloride BUN Glucose AST Lactate Dehydrogenase C-Reactive Protein Albumin Coronavirus (PCR) Detected A - Diagnostic Findings Chest x-ray: image reviewed CT scan - chest: image reviewed Assessment and Plan Plan: 1 acute COVID-19 related pneumonia with extensive groundglass changes involving the right lung mainly in the right lower lobe. D-dimer is elevated. Patient has been symptomatic for at least 6-7 days. She says possible COVID-19 approximately 6 days ago. She is presented with worsening shortness of breath and generalized weakness 2 acute hypoxic respiratory failure currently on 4070 by nasal cannula 3 known history of coronary artery disease with previous stenting of the LAD, currently inactive in stable 4 history of Sjogren's disease/lupus 5 remote history of DVT of the lower extremity 6 osteoarthritis 7 hypertension 8 hypothyroidism 9 history of TIA without any residual deficits Plan Oxygen therapy at 4 L for now and titrate the flow to maintain a saturation a svetlana 90% Proceed with steroids and the patient will be placed on Decadron 6 mg IV Continue Lovenox 30 minute exam subcu every 12 hours Remdesivir protocol Monitor inflammatory markers IV fluids We will resume home medications We'll continue to follow. Unfortunately, the patient lost her to COVID- 19 complications few days ago.
--- NOTE | 2020-07-28 16:33 | P.PN ---
Subjective Progress Note Date: 07/28/20 84-year-old female patient presented to the hospital because of symptoms of weakness and shortness of breath. the patient had a positive COVID-19 test 6 days ago. She was also symptomatic. She days prior to that.She has been COVID- 19 positive and her from complications of COVID-19 infection approximately 4 days ago. The patient has been living alone. She has been quite debilitated and she is not getting around her house and she's been feeling very weak. No complaints of chest pain or abdominal pain or nausea or vomiting or headache or altered mentation. In the emergency, the patient was afebrile. Pulse ox was 92% on 4 L of oxygen by nasal cannula. She looked quite dehydrated and she was started on IV fluids. Blood work showed a white cell count of 8.9 and the patient some lymphopenia. Normal coagulation profile. D-dimer was 9.2. LFTs were abnormal with an AST of 55, ALT of 30, alk phos of 88, LDH was 1671, CRP was 6.7 and COVID-19 was positive. The patient's chest x-ray showed ground glass changes in the right lung and the CAT scan of the chest was also done that showed diffuse ground glass pulmonary infiltrates involving the right lung made in the lung bases addition to some limited change in the left lower lobe. The patient was started on Decadron 6 g IV every 24 hours.she was also started on Decadron 45 mg subcu every 12 hours. She is also on vitamin C, vitamin D and zinc 07/28/2020, the patient is being seen in follow-up. She is sitting in the [facility] department and she has moved to a different room. She remains on Decadron 6 mg every 24 hours. She is also on Lovenox 45 mg subcu every 12 hours. Noted the patient was on oxygen at 4 L yesterday and sincethis morning at around 8:00, the patient's oxygen requirements have gradually increased. Currently she is on 15 L of oxygen by nasal cannula. She is feeling slightly more short of breath. She is also more lethargic compared to yesterday. Her LDH level is 04/16/2007 and a CRP level is at 7.6. Electrolytes are all within normal limits. D-dimer from yesterday was 9.24. She continues to have lymphopenia on her white cell count. She is currently on a combination of Decadron and Remdesivir and this is day 2 of treatment. Nevertheless, with increasing oxygen requirements, I think it's highly unlikely the patient is going to respond to Remdesivir and I'm considering starting this medication and often this patient Tocilizumab in conjunction with steroids. Objective - Vital Signs Vital signs: Vital Signs Temp 97.2 F L 07/28/20 10:00 Pulse 76 07/28/20 10:00 Resp 20 07/28/20 10:00 BP 116/58 07/28/20 06:50 Pulse Ox 89 L 07/28/20 06:58 Intake & Output 07/27/20 07/28/20 07/28/20 18:59 06:59 18:59 Weight 65.771 kg - Exam Gen. appearance, comfortable nontoxic looking, her breathing is slightly labored. Currently on 15 L of oxygen by nasal cannula Head exam was generally normal. There was no scleral icterus or corneal arcus. Mucous membranes were moist. Neck was supple and without jugular venous distension, thyromegaly, or carotid bruits. Carotids were easily palpable bilaterally. There was no adenopathy. Lungs sounds are diminished in the lung bases and the patient is crackles on the right side of the lung. Maintained on basis. More so on the right. Cardiac exam revealed the PMI to be normally situated and sized. The rhythm was regular and no extrasystoles were noted during several minutes of auscultation. The first and second heart sounds were normal and physiologic splitting of the second heart sound was noted. There were no murmurs, rubs, clicks, or gallops. Abdominal exam revealed normal bowel sounds. The abdomen was soft, non-tender, and without masses, organomegaly, or appreciable enlargement of the abdominal aorta. Examination of the extremities revealed easily palpable radial, femoral and pedal pulses. There was no cyanosis, clubbing or edema. Examination of the skin revealed no evidence of significant rashes, suspicious appearing nevi or other concerning lesions. - Labs CBC & Chem 7: 07/28/20 07:37 07/28/20 07:36 Labs: Abnormal Lab Results - Last 24 Hours (Table) 07/27/20 07/27/20 07/27/20 Range/Units 15:10 15:10 15:10 Neutrophils # 8.2 H (1.3-7.7) k/uL Lymphocytes # 0.6 L (1.0-4.8) k/uL D-Dimer 9.24 H (<0.60) mg/L FEU Sodium 132 L (137-145) mmol/L Chloride 95 L (98-107) mmol/L BUN 29 H (7-17) mg/dL Glucose 157 H (74-99) mg/dL Ferritin 982.2 H (10.0-291.0) ng/mL AST 55 H (14-36) U/L Lactate Dehydrogenase 1671 H (313-618) U/L C-Reactive Protein 6.7 H (<1.0) mg/dL Total Protein (6.3-8.2) g/dL Albumin 3.4 L (3.5-5.0) g/dL Procalcitonin (0.02-0.09) ng/mL Coronavirus (PCR) (Not Detectd) 07/27/20 07/27/20 07/28/20 Range/Units 15:10 16:53 07:36 Neutrophils # (1.3-7.7) k/uL Lymphocytes # (1.0-4.8) k/uL D-Dimer (<0.60) mg/L FEU Sodium 136 L (137-145) mmol/L Chloride (98-107) mmol/L BUN 22 H (7-17) mg/dL Glucose (74-99) mg/dL Ferritin (10.0-291.0) ng/mL AST 41 H (14-36) U/L Lactate Dehydrogenase 1408 H (313-618) U/L C-Reactive Protein 7.9 H (<1.0) mg/dL Total Protein 6.2 L (6.3-8.2) g/dL Albumin 3.3 L (3.5-5.0) g/dL Procalcitonin 0.34 H (0.02-0.09) ng/mL Coronavirus (PCR) Detected A (Not Detectd) 07/28/20 Range/Units 07:37 Neutrophils # (1.3-7.7) k/uL Lymphocytes # 0.8 L (1.0-4.8) k/uL D-Dimer (<0.60) mg/L FEU Sodium (137-145) mmol/L Chloride (98-107) mmol/L BUN (7-17) mg/dL Glucose (74-99) mg/dL Ferritin (10.0-291.0) ng/mL AST (14-36) U/L Lactate Dehydrogenase (313-618) U/L C-Reactive Protein (<1.0) mg/dL Total Protein (6.3-8.2) g/dL Albumin (3.5-5.0) g/dL Procalcitonin (0.02-0.09) ng/mL Coronavirus (PCR) (Not Detectd) Assessment and Plan Plan: 1 acute COVID-19 related pneumonia with extensive groundglass changes involving the right lung mainly in the right lower lobe. D-dimer is elevated. Patient has been symptomatic for at least 6-7 days. She says possible COVID-19 approximately 6 days ago. She is presented with worsening shortness of breath and generalized weakness. She initially was on 3 L of oxygen by nasal cannula and her oxygen requirements progressively went up and currently is on 50 L about 2 by nasal cannula. 2 acute hypoxic respiratory failure currently on 15 L by nasal cannula 3 known history of coronary artery disease with previous stenting of the LAD, currently inactive in stable 4 history of Sjogren's disease/lupus 5 remote history of DVT of the lower extremity 6 osteoarthritis 7 hypertension 8 hypothyroidism 9 history of TIA without any residual deficits Plan Oxygen therapy at 15 L for now and titrate the flow to maintain a saturation above 90% P Decadron 6 mg IV every 24 hours Continue Lovenox 30 minute exam subcu every 12 hours Stop the Remdesivir and proceed with Tocilizumab , 525 mg IV 1 Monitor inflammatory markers IV fluids We will resume home medications We'll continue to follow. Unfortunately, the patient lost her to COVID-19 complications few days ago.
--- NOTE | 2020-07-28 16:53 | P.HPIM ---
History of Present Illness H&P Date: 07/27/20 Chief Complaint: Shortness of breath/weakness/ams/covid+ Patient is an 84-year-old female with a complicated past medical history including TIA, DVT GERD hypertension and thyroid disorder who presents to the emergency room for a chief complaint of weakness. Patient tested positive for Coronavirus 6 days ago. Patient reports she is unsure when her symptoms started but does know it was at least a few days before that. Patient reports she believes she got this from her who recently 4 days ago unfortunately. 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 Patient states she can no longer get around her house. States she is short of breath. States she is very weak. She thinks she wore herself out caring for him. Patient states she needs help and cannot care for herself at home. Patient presents on a nonrebreather.Patient has no other complaints at this time including chest pain, abdominal pain, nausea or vomiting, headache, or visual changes. In the ED patient was placed on oxygen per nasal cannula at 4 L saturating around 92%: CBC was unremarkable: Chemical profile revealed sodium 132, potassium 3.9, BUN/creatinine of 2019/0.86 with blood glucose of 157: D-dimer was found to be elevated and patient underwent CTA chest which revealed extensive infiltrates: Patient was placed on Decadron and is admitted to hospital further treatment Review of Systems REVIEW OF SYSTEMS: CONSTITUTIONAL: No fever, no malaise, no fatigue. HEENT: No recent visual problems or hearing problems. Denied any sore throat. CARDIOVASCULAR: No chest pain, orthopnea, PND, no palpitations, no syncope. PULMONARY: No shortness of breath, no cough, no hemoptysis. GASTROINTESTINAL: No diarrhea, no nausea, no vomiting, no abdominal pain. NEUROLOGICAL: No headaches, no weakness, no numbness. HEMATOLOGICAL: Denies any bleeding or petechiae. GENITOURINARY: Denies any burning micturition, frequency, or urgency. MUSCULOSKELETAL/RHEUMATOLOGICAL: Denies any joint pain, swelling, or any muscle pain. ENDOCRINE: Denies any polyuria or polydipsia. The rest of the 14-point review of systems is negative. Past Medical History Past Medical History: CVA/TIA, Deep Vein Thrombosis (DVT), GERD/Reflux, Hypertension, Osteoarthritis (OA), Thyroid Disorder Additional Past Medical History / Comment(s): Sjogrens, lupus, hx. leaky valve, SOB w/exertion, hx. DVT leg years ago, TIA couple months ago-no residual effects, COVID+ History of Any Multi-Drug Resistant Organisms: None Reported Past Surgical History: Cholecystectomy, Heart Catheterization, Heart Catheterization With Stent, Hysterectomy, Tonsillectomy Additional Past Surgical History / Comment(s): Varicose vein repair, cataract surgery Past Anesthesia/Blood Transfusion Reactions: No Reported Reaction Date of Last Stent Placement:: 2007 Past Psychological History: No Psychological Hx Reported Smoking Status: Never smoker Past Alcohol Use History: Rare Past Drug Use History: None Reported - Past Family History Mother Family Medical History: No Reported History Medications and Allergies Home Medications Medication Instructions Recorded Confirmed Type Cevimeline [Evoxac] 30 mg PO BID 10/24/15 07/27/20 History Folic Acid 1 mg PO DAILY 10/24/15 07/27/20 History Levothyroxine Sodium [Levoxyl] 112 mcg PO DAILY 10/24/15 07/27/20 History Metoprolol Tartrate 25 mg PO DAILY 10/24/15 07/27/20 History Omeprazole 20 mg PO DAILY 10/24/15 07/27/20 History metHOTREXate sodium [Methotrexate] 25 mg PO Q7D 10/24/15 07/27/20 History HYDROcodone/APAP 10-325MG [[place] 1 tab PO Q6H PRN 06/18/17 07/27/20 History 10-325] Simvastatin [Zocor] 40 mg PO HS 06/18/17 07/27/20 History Dexamethasone 6 mg PO DAILY #9 tablet 07/22/20 07/27/20 Rx Diclofenac Sodium [Voltaren Gel] 2 gram TOPICAL QID PRN 07/22/20 07/27/20 His tory Furosemide [Lasix] 20 mg PO DAILY 07/22/20 07/27/20 History Gabapentin 800 mg PO TID 07/22/20 07/27/20 History Nitrofurantoin Monohyd/M-Cryst 100 mg PO Q12HR #14 cap 07/22/20 07/27/20 Rx [Macrobid] Potassium Chloride ER [K-Dur 20] 20 meq PO DAILY #3 tab 07/22/20 07/27/20 Rx Venlafaxine HCl ER [Effexor Xr] 150 mg PO DAILY 07/22/20 07/27/20 History calcitrioL [Calcitriol] 0.25 mcg PO MOFR 07/22/20 07/27/20 History Allergies Allergy/AdvReac Type Severity Reaction Status Date / Time No Known Allergies Allergy Verified 07/27/20 17:12 Physical Exam Vitals: Vital Signs Temp Pulse Resp BP Pulse Ox 07/27/20 17:57 97.3 F L 78 18 115/73 92 L 07/27/20 16:25 82 16 114/70 92 L 07/27/20 15:13 94 L 07/27/20 15:05 97.0 F L 79 20 103/69 80 L Intake and Output 07/27/20 07/27/20 07/27/20 06:59 14:59 22:59 Other: Weight 65.771 kg PHYSICAL EXAMINATION: GENERAL: The patient is alert and oriented x3, not in any acute distress. Well developed, well nourished. HEENT: Pupils are round and equally reacting to light. EOMI. No scleral icterus. No conjunctival pallor. Normocephalic, atraumatic. No pharyngeal erythema. No thyromegaly. CARDIOVASCULAR: S1 and S2 present. No murmurs, rubs, or gallops. PULMONARY: Chest is clear to auscultation, no wheezing or crackles. ABDOMEN: Soft, nontender, nondistended, normoactive bowel sounds. No palpable organomegaly. MUSCULOSKELETAL: No joint swelling or deformity. EXTREMITIES: No cyanosis, clubbing, or pedal edema. NEUROLOGICAL: Gross neurological examination did not reveal any focal deficits. SKIN: No rashes. Results CBC & Chem 7: 07/28/20 07:37 07/28/20 07:36 Labs: Abnormal Lab Results - Last 24 Hours (Table) 07/27/20 07/27/20 07/27/20 Range/Units 15:10 15:10 15:10 Neutrophils # 8.2 H (1.3-7.7) k/uL Lymphocytes # 0.6 L (1.0-4.8) k/uL D-Dimer 9.24 H (<0.60) mg/L FEU Sodium 132 L (137-145) mmol/L Chloride 95 L (98-107) mmol/L BUN 29 H (7-17) mg/dL Glucose 157 H (74-99) mg/dL AST 55 H (14-36) U/L Lactate Dehydrogenase 1671 H (313-618) U/L C-Reactive Protein 6.7 H (<1.0) mg/dL Albumin 3.4 L (3.5-5.0) g/dL Coronavirus (PCR) (Not Detectd) 07/27/20 Range/Units 16:53 Neutrophils # (1.3-7.7) k/uL Lymphocytes # (1.0-4.8) k/uL D-Dimer (<0.60) mg/L FEU Sodium (137-145) mmol/L Chloride (98-107) mmol/L BUN (7-17) mg/dL Glucose (74-99) mg/dL AST (14-36) U/L Lactate Dehydrogenase (313-618) U/L C-Reactive Protein (<1.0) mg/dL Albumin (3.5-5.0) g/dL Coronavirus (PCR) Detected A (Not Detectd) Assessment and Plan Assessment: 1. Acute COVID-19 pneumonia; CT reveals extensive groundglass changes mainly in the right lower lobe; d-dimer is elevated but no PE on CTA; pulmonary is consulted and patient is placed on Remdesivir protocol; Lovenox subcu every 12 hours and Decadron 6 mg IV daily; patient will remain on 4 L of oxygen per nasal cannula keeping SpO2 greater than 90% - Trend inflammatory markers and make further adjustments accordingly 2. Acute hypoxic respiratory failure secondary to 1; patient remains on O2 at 4 L per nasal cannula with SpO2 of 92%; we will continue with oxygen support and plan to wean when patient is stable 3. Mild [place] I; continue with IV fluid hydration form of normal saline; monitor renal function and electrolytes, strict IRINA's, avoid nephrotoxic agents and hypotension 4. History of CAD/previous stenting of LAD; remained stable 5. Hypertension; stable on metoprolol 25 mg daily 6. Hypothyroidism; levothyroxin 112 MCG daily 7. Hyperlipidemia; Lipitor 20 mg by mouth daily 8. History of Sjogren's disease/lupus; continue with Evoxac 30 mg twice a day DVT prophylaxis; SCDs/subcu Lovenox CODE STATUS; full code
--- NOTE | 2020-07-28 16:54 | P.PN ---
Subjective Progress Note Date: 07/28/20 Principal diagnosis: COVID-19 related pneumonia Acute hypoxic respiratory failure Mild renal injury/dehydration 84-year-old female patient presented to the hospital because of symptoms of weakness and shortness of breath. the patient had a positive COVID-19 test 6 days ago. She was also symptomatic. She days prior to that.She has been COVID- 19 positive and her from complications of COVID-19 infection approximately 4 days ago. The patient has been living alone. She has been quite debilitated and she is not getting around her house and she's been feeling very weak. No complaints of chest pain or abdominal pain or nausea or vomiting or headache or altered mentation. In the emergency, the patient was afebrile. Pulse ox was 92% on 4 L of oxygen by nasal cannula. She looked quite dehydrated and she was started on IV fluids. Blood work showed a white cell count of 8.9 and the patient some lymphopenia. Normal coagulation profile. D-dimer was 9.2. LFTs were abnormal with an AST of 55, ALT of 30, alk phos of 88, LDH was 1671, CRP was 6.7 and COVID-19 was positive. The patient's chest x-ray showed ground glass changes in the right lung and the CAT scan of the chest was also done that showed diffuse ground glass pulmonary infiltrates involving the right lung made in the lung bases addition to some limited change in the left lower lobe. The patient was started on Decadron 6 g IV every 24 hours.she was also started on Decadron 45 mg subcu every 12 hours. She is also on vitamin C, vitamin D and zinc Objective - Vital Signs Vital signs: Vital Signs Temp 97.2 F L 07/28/20 10:00 Pulse 76 07/28/20 10:00 Resp 20 07/28/20 10:00 BP 116/58 07/28/20 06:50 Pulse Ox 89 L 07/28/20 06:58 Intake & Output 07/27/20 07/28/20 07/28/20 18:59 06:59 18:59 Weight 65.771 kg - Exam PHYSICAL EXAMINATION: GENERAL: The patient is alert and oriented x3, not in any acute distress. Well developed, well nourished. HEENT: Pupils are round and equally reacting to light. EOMI. No scleral icterus. No conjunctival pallor. Normocephalic, atraumatic. No pharyngeal erythema. No thyromegaly. CARDIOVASCULAR: S1 and S2 present. No murmurs, rubs, or gallops. PULMONARY: Chest is clear to auscultation, no wheezing or crackles. ABDOMEN: Soft, nontender, nondistended, normoactive bowel sounds. No palpable organomegaly. MUSCULOSKELETAL: No joint swelling or deformity. EXTREMITIES: No cyanosis, clubbing, or pedal edema. NEUROLOGICAL: Gross neurological examination did not reveal any focal deficits. SKIN: No rashes. - Labs CBC & Chem 7: 07/28/20 07:37 07/28/20 07:36 Labs: Abnormal Lab Results - Last 24 Hours (Table) 07/27/20 07/27/20 07/27/20 Range/Units 15:10 15:10 15:10 Neutrophils # 8.2 H (1.3-7.7) k/uL Lymphocytes # 0.6 L (1.0-4.8) k/uL D-Dimer 9.24 H (<0.60) mg/L FEU Sodium 132 L (137-145) mmol/L Chloride 95 L (98-107) mmol/L BUN 29 H (7-17) mg/dL Glucose 157 H (74-99) mg/dL Ferritin 982.2 H (10.0-291.0) ng/mL AST 55 H (14-36) U/L Lactate Dehydrogenase 1671 H (313-618) U/L C-Reactive Protein 6.7 H (<1.0) mg/dL Total Protein (6.3-8.2) g/dL Albumin 3.4 L (3.5-5.0) g/dL Procalcitonin (0.02-0.09) ng/mL Coronavirus (PCR) (Not Detectd) 07/27/20 07/27/20 07/28/20 Range/Units 15:10 16:53 07:36 Neutrophils # (1.3-7.7) k/uL Lymphocytes # (1.0-4.8) k/uL D-Dimer (<0.60) mg/L FEU Sodium 136 L (137-145) mmol/L Chloride (98-107) mmol/L BUN 22 H (7-17) mg/dL Glucose (74-99) mg/dL Ferritin (10.0-291.0) ng/mL AST 41 H (14-36) U/L Lactate Dehydrogenase 1408 H (313-618) U/L C-Reactive Protein 7.9 H (<1.0) mg/dL Total Protein 6.2 L (6.3-8.2) g/dL Albumin 3.3 L (3.5-5.0) g/dL Procalcitonin 0.34 H (0.02-0.09) ng/mL Coronavirus (PCR) Detected A (Not Detectd) 07/28/20 Range/Units 07:37 Neutrophils # (1.3-7.7) k/uL Lymphocytes # 0.8 L (1.0-4.8) k/uL D-Dimer (<0.60) mg/L FEU Sodium (137-145) mmol/L Chloride (98-107) mmol/L BUN (7-17) mg/dL Glucose (74-99) mg/dL Ferritin (10.0-291.0) ng/mL AST (14-36) U/L Lactate Dehydrogenase (313-618) U/L C-Reactive Protein (<1.0) mg/dL Total Protein (6.3-8.2) g/dL Albumin (3.5-5.0) g/dL Procalcitonin (0.02-0.09) ng/mL Coronavirus (PCR) (Not Detectd) Assessment and Plan Assessment: 1. Acute COVID-19 pneumonia; CT reveals extensive groundglass changes mainly in the right lower lobe; d-dimer is elevated but no PE on CTA; pulmonary is consulted and patient is placed on Remdesivir protocol; Lovenox subcu every 12 hours and Decadron 6 mg IV daily; patient will remain on 4 L of oxygen per nasal cannula keeping SpO2 greater than 90% - Trend inflammatory markers and make further adjustments accordingly 2. Acute hypoxic respiratory failure secondary to 1; patient remains on O2 at 4 L per nasal cannula with SpO2 of 92%; we will continue with oxygen support and plan to wean when patient is stable 3. Mild AK I; continue with IV fluid hydration form of normal saline; monitor renal function and electrolytes, strict IRINA's, avoid nephrotoxic agents and hypotension 4. History of CAD/previous stenting of LAD; remained stable 5. Hypertension; stable on metoprolol 25 mg daily 6. Hypothyroidism; levothyroxin 112 MCG daily 7. Hyperlipidemia; Lipitor 20 mg by mouth daily 8. History of Sjogren's disease/lupus; continue with Evoxac 30 mg twice a day DVT prophylaxis; SCDs/subcu Lovenox CODE STATUS; full code
[2020-07-28] MEDS ORDERED: TOCILIZUMAB 560 MG in SODIUM CHLORIDE 0.9% 72 ML IV ONE (17:30)
[2020-07-28] MEDS ORDERED: REMDESIVIR 100 MG in SODIUM CHLORIDE 0.9% 250 ML IVPB SCH (20:00)
[2020-07-28] MEDS: ATORVASTATIN 20 MG TAB PO SCH (20:35)
[2020-07-28] MEDS: METOPROLOL TARTRATE 25 MG TAB PO SCH (20:35)
[2020-07-29] MEDS: LEVOTHYROXINE 112 MCG TAB PO SCH (05:37)
[2020-07-29] MEDS: ENOXAPARIN 30 MG/0.3 ML SYRINGE SQ SCH ×2 (08:58→21:01)
[2020-07-29] MEDS: PANTOPRAZOLE 40 MG/10 ML VIAL IV SCH (08:59)
[2020-07-29] MEDS: VENLAFAXINE HCL ER 150 MG CAP PO SCH ×2 (08:59→09:02)
[2020-07-29] MEDS: DEXAMETHASONE SOD PHOSPHATE 10 MG/ML 1 ML VIAL IV SCH (09:00)
[2020-07-29] MEDS: METOPROLOL TARTRATE 25 MG TAB PO SCH (09:01)
[2020-07-29] MEDS: GABAPENTIN 400 MG CAP PO SCH ×3 (09:01→21:01)
[2020-07-29] MEDS: FOLIC ACID 1 MG TAB PO SCH (09:02)
[2020-07-29] MEDS: CEVIMELINE 30 MG CAP PO SCH ×2 (09:02→21:01)
[2020-07-29] MEDS: POTASSIUM CHLORIDE ER 20 MEQ TAB.ER PO SCH (09:02)
--- NOTE | 2020-07-29 12:58 | P.PN ---
Subjective Progress Note Date: 07/29/20 84-year-old female patient presented to the hospital because of symptoms of weakness and shortness of breath. the patient had a positive COVID-19 test 6 days ago. She was also symptomatic. She days prior to that.She has been COVID- 19 positive and her from complications of COVID-19 infection approximately 4 days ago. The patient has been living alone. She has been quite debilitated and she is not getting around her house and she's been feeling very weak. No complaints of chest pain or abdominal pain or nausea or vomiting or headache or altered mentation. In the emergency, the patient was afebrile. Pulse ox was 92% on 4 L of oxygen by nasal cannula. She looked quite dehydrated and she was started on IV fluids. Blood work showed a white cell count of 8.9 and the patient some lymphopenia. Normal coagulation profile. D-dimer was 9.2. LFTs were abnormal with an AST of 55, ALT of 30, alk phos of 88, LDH was 1671, CRP was 6.7 and COVID-19 was positive. The patient's chest x-ray showed ground glass changes in the right lung and the CAT scan of the chest was also done that showed diffuse ground glass pulmonary infiltrates involving the right lung made in the lung bases addition to some limited change in the left lower lobe. The patient was started on Decadron 6 g IV every 24 hours.she was also started on Decadron 45 mg subcu every 12 hours. She is also on vitamin C, vitamin D and zinc 07/28/2020, the patient is being seen in follow-up. She is sitting in the [facility] department and she has moved to a different room. She remains on Decadron 6 mg every 24 hours. She is also on Lovenox 45 mg subcu every 12 hours. Noted the patient was on oxygen at 4 L yesterday and sincethis morning at around 8:00, the patient's oxygen requirements have gradually increased. Currently she is on 15 L of oxygen by nasal cannula. She is feeling slightly more short of breath. She is also more lethargic compared to yesterday. Her LDH level is 04/16/2007 and a CRP level is at 7.6. Electrolytes are all within normal limits. D-dimer from yesterday was 9.24. She continues to have lymphopenia on her white cell count. She is currently on a combination of Decadron and Remdesivir and this is day 2 of treatment. Nevertheless, with increasing oxygen requirements, I think it's highly unlikely the patient is going to respond to Remdesivir and I'm considering starting this medication and often this patient Tocilizumab in conjunction with steroids. 07/29/2020, the patient is slightly worse. She is still on 15 L high flow nasal cannula. She did desaturate on few occasions that she had to be placed on 100% nonrebreather and she was taken off the nonrebreather again. She is on Decadron. She was on Remdesivir and due to her progression, the patient was switched to Tocilizumab 560 mg IV 1.In regards to her blood work, the LDH level is 04/16/2007 with a CRP level of 7.9. Rest of the electrodes are all within normal limits. Her d-dimer earlier was 9.24 and this needs to be repeated. Electrolytes are all within normal limits. She continues to have lymphopenia with a lymphocyte count of 0.8. She is afebrile. Diet is fair and she is eating approximately 50% of her food trays. Objective - Vital Signs Vital signs: Vital Signs Temp 97.5 F L 07/29/20 09:31 Pulse 70 07/29/20 09:31 Resp 18 07/29/20 09:31 BP 114/53 07/29/20 09:31 Pulse Ox 97 07/29/20 09:31 Intake & Output 07/28/20 07/29/20 07/29/20 18:59 06:59 18:59 Weight 65.771 kg Other: Voiding Method Bedpan # Voids 1 2 - Exam Gen. appearance, comfortable nontoxic looking, her breathing is slightly labored. Currently on 15 L of oxygen by nasal cannula Head exam was generally normal. There was no scleral icterus or corneal arcus. Mucous membranes were moist. Neck was supple and without jugular venous distension, thyromegaly, or carotid bruits. Carotids were easily palpable bilaterally. There was no adenopathy. Lungs sounds are diminished in the lung bases and the patient is crackles on the right side of the lung. Maintained on basis. More so on the right. Cardiac exam revealed the PMI to be normally situated and sized. The rhythm was regular and no extrasystoles were noted during several minutes of auscultation. The first and second heart sounds were normal and physiologic splitting of the second heart sound was noted. There were no murmurs, rubs, clicks, or gallops. Abdominal exam revealed normal bowel sounds. The abdomen was soft, non-tender, and without masses, organomegaly, or appreciable enlargement of the abdominal aorta. Examination of the extremities revealed easily palpable radial, femoral and pedal pulses. There was no cyanosis, clubbing or edema. Examination of the skin revealed no evidence of significant rashes, suspicious appearing nevi or other concerning lesions. - Labs CBC & Chem 7: 07/28/20 07:37 07/28/20 07:36 Assessment and Plan Plan: 1 acute COVID-19 related pneumonia with extensive groundglass changes involving the right lung mainly in the right lower lobe. D-dimer is elevated. Patient has been symptomatic for at least 6-7 days. She says possible COVID-19 approximately 6 days ago. She is presented with worsening shortness of breath and generalized weakness. She initially was on 3 L of oxygen by nasal cannula and her oxygen requirements progressively went up and currently is on a liters. Based on that, I kept on Decadron, discontinue the Remdesivir gave her Tocilizumab , 560 mg IV 1. On today's evaluation, the patient remains on 15 L of oxygen by nasal cannula. No significant change in her condition. Oxygenation remains borderline with the patient is still requiring on and off facemask to supplemented oxygen especially when she desaturates. 2 acute hypoxic respiratory failure currently on 15 L by nasal cannula 3 known history of coronary artery disease with previous stenting of the LAD, currently inactive in stable 4 history of Sjogren's disease/lupus 5 remote history of DVT of the lower extremity 6 osteoarthritis 7 hypertension 8 hypothyroidism 9 history of TIA without any residual deficits Plan Oxygen therapy at 15 L for now and titrate the flow to maintain a saturation above 90% Decadron 6 mg IV every 24 hours Continue Lovenox 30 minute exam subcu every 12 hours Stop the Remdesivir and treated with Tocilizumab , 560 mg IV 1 Monitor inflammatory markers IV fluids We will resume home medications We'll continue to follow. Unfortunately, the patient lost her to COVID-19 complications few days ago.
--- NOTE | 2020-07-29 16:46 | P.PN ---
Subjective Progress Note Date: 07/29/20 Principal diagnosis: COVID-19 related pneumonia Acute hypoxic respiratory failure Mild renal injury/dehydration 84-year-old female patient presented to the hospital because of symptoms of weakness and shortness of breath. the patient had a positive COVID-19 test 6 days ago. She was also symptomatic. She days prior to that.She has been COVID- 19 positive and her from complications of COVID-19 infection approximately 4 days ago. The patient has been living alone. She has been quite debilitated and she is not getting around her house and she's been feeling very weak. No complaints of chest pain or abdominal pain or nausea or vomiting or headache or altered mentation. In the emergency, the patient was afebrile. Pulse ox was 92% on 4 L of oxygen by nasal cannula. She looked quite dehydrated and she was started on IV fluids. Blood work showed a white cell count of 8.9 and the patient some lymphopenia. Normal coagulation profile. D-dimer was 9.2. LFTs were abnormal with an AST of 55, ALT of 30, alk phos of 88, LDH was 1671, CRP was 6.7 and COVID-19 was positive. The patient's chest x-ray showed ground glass changes in the right lung and the CAT scan of the chest was also done that showed diffuse ground glass pulmonary infiltrates involving the right lung made in the lung bases addition to some limited change in the left lower lobe. The patient was started on Decadron 6 g IV every 24 hours.she was also started on Decadron 45 mg subcu every 12 hours. She is also on vitamin C, vitamin D and zinc 07/29/2020 the patient is seen and evaluated in room at bedside; seems slightly worse. She is still on 15 L high flow nasal cannula. She did desaturate on few occasions that she had to be placed on 100% nonrebreather. Patient remains on Decadron; Remdesivir and due to her progression, the patient was switched to Tocilizumab 560 mg IV 1 by pulmonary service. Blood work reveals LDH level is 04/16/2007 with a CRP level of 7.9; d-dimer earlier was 9.24 and this needs to be repeated. Electrolytes are all within normal limits. She continues to have lymphopenia with a lymphocyte count of 0.8. Diet is fair Objective - Vital Signs Vital signs: Vital Signs Temp 97.5 F L 07/29/20 09:31 Pulse 70 07/29/20 09:31 Resp 18 07/29/20 09:31 BP 114/53 07/29/20 09:31 Pulse Ox 97 07/29/20 09:31 Intake & Output 07/28/20 07/29/20 07/29/20 18:59 06:59 18:59 Weight 65.771 kg Other: Voiding Method Bedpan # Voids 1 2 - Exam PHYSICAL EXAMINATION: GENERAL: The patient is alert and oriented x3, not in any acute distress. Well developed, well nourished. HEENT: Pupils are round and equally reacting to light. EOMI. No scleral icterus. No conjunctival pallor. Normocephalic, atraumatic. No pharyngeal erythema. No thyromegaly. CARDIOVASCULAR: S1 and S2 present. No murmurs, rubs, or gallops. PULMONARY: Chest is clear to auscultation, no wheezing or crackles. ABDOMEN: Soft, nontender, nondistended, normoactive bowel sounds. No palpable organomegaly. MUSCULOSKELETAL: No joint swelling or deformity. EXTREMITIES: No cyanosis, clubbing, or pedal edema. NEUROLOGICAL: Gross neurological examination did not reveal any focal deficits. SKIN: No rashes. - Labs CBC & Chem 7: 07/28/20 07:37 07/28/20 07:36 Assessment and Plan Assessment: 1. Acute COVID-19 pneumonia; CT reveals extensive groundglass changes mainly in the right lower lobe; d-dimer is elevated but no PE on CTA; pulmonary is consulted and patient is placed on Remdesivir protocol; Lovenox subcu every 12 hours and Decadron 6 mg IV daily; patient will remain on 4 L of oxygen per nasal cannula keeping SpO2 greater than 90% - Trend inflammatory markers and make further adjustments accordingly 2. Acute hypoxic respiratory failure secondary to 1; patient remains on O2 at 4 L per nasal cannula with SpO2 of 92%; we will continue with oxygen support and plan to wean when patient is stable 3. Mild AK I; continue with IV fluid hydration form of normal saline; monitor renal function and electrolytes, strict IRINA's, avoid nephrotoxic agents and hypotension 4. History of CAD/previous stenting of LAD; remained stable 5. Hypertension; stable on metoprolol 25 mg daily 6. Hypothyroidism; levothyroxin 112 MCG daily 7. Hyperlipidemia; Lipitor 20 mg by mouth daily 8. History of Sjogren's disease/lupus; continue with Evoxac 30 mg twice a day DVT prophylaxis; SCDs/subcu Lovenox CODE STATUS; full code
[2020-07-29] MEDS: ATORVASTATIN 20 MG TAB PO SCH (21:01)
[2020-07-30] MEDS: LEVOTHYROXINE 112 MCG TAB PO SCH (06:24)
[2020-07-30] MEDS: PANTOPRAZOLE 40 MG TABLET PO SCH (08:16)
[2020-07-30] MEDS: VENLAFAXINE HCL ER 150 MG CAP PO SCH (08:16)
[2020-07-30] MEDS: GABAPENTIN 400 MG CAP PO SCH ×3 (08:16→19:44)
[2020-07-30] MEDS: METOPROLOL TARTRATE 25 MG TAB PO SCH (08:16)
[2020-07-30] MEDS: POTASSIUM CHLORIDE ER 20 MEQ TAB.ER PO SCH (08:16)
[2020-07-30] MEDS: FOLIC ACID 1 MG TAB PO SCH (08:16)
[2020-07-30] MEDS: CEVIMELINE 30 MG CAP PO SCH ×2 (08:17→19:44)
[2020-07-30] MEDS: DEXAMETHASONE SOD PHOSPHATE 10 MG/ML 1 ML VIAL IV SCH (08:17)
[2020-07-30] MEDS: ENOXAPARIN 30 MG/0.3 ML SYRINGE SQ SCH ×2 (08:17→19:44)
--- NOTE | 2020-07-30 15:53 | P.PN ---
Subjective Progress Note Date: 07/30/20 Principal diagnosis: COVID 19 84-year-old female patient presented to the hospital because of symptoms of weakness and shortness of breath. the patient had a positive COVID-19 test 6 days ago. She was also symptomatic. She days prior to that.She has been COVID- 19 positive and her from complications of COVID-19 infection approximately 4 days ago. The patient has been living alone. She has been quite debilitated and she is not getting around her house and she's been feeling very weak. No complaints of chest pain or abdominal pain or nausea or vomiting or headache or altered mentation. In the emergency, the patient was afebrile. Pulse ox was 92% on 4 L of oxygen by nasal cannula. She looked quite dehydrated and she was started on IV fluids. Blood work showed a white cell count of 8.9 and the patient some lymphopenia. Normal coagulation profile. D-dimer was 9.2. LFTs were abnormal with an AST of 55, ALT of 30, alk phos of 88, LDH was 1671, CRP was 6.7 and COVID-19 was positive. The patient's chest x-ray showed ground glass changes in the right lung and the CAT scan of the chest was also done that showed diffuse ground glass pulmonary infiltrates involving the right lung made in the lung bases addition to some limited change in the left lower lobe. The patient was started on Decadron 6 g IV every 24 hours.she was also started on Decadron 45 mg subcu every 12 hours. She is also on vitamin C, vitamin D and zinc 07/28/2020, the patient is being seen in follow-up. She is sitting in the emergency department and she has moved to a different room. She remains on Decadron 6 mg every 24 hours. She is also on Lovenox 45 mg subcu every 12 hours. Noted the patient was on oxygen at 4 L yesterday and sincethis morning at around 8:00, the patient's oxygen requirements have gradually increased. Currently she is on 15 L of oxygen by nasal cannula. She is feeling slightly more short of breath. She is also more lethargic compared to yesterday. Her LDH level is 04/16/2007 and a CRP level is at 7.6. Electrolytes are all within normal limits. D-dimer from yesterday was 9.24. She continues to have lymphopenia on her white cell count. She is currently on a combination of Decadron and Remdesivir and this is day 2 of treatment. Nevertheless, with increasing oxygen requirements, I think it's highly unlikely the patient is going to respond to Remdesivir and I'm considering starting this medication and often this patient Tocilizumab in conjunction with steroids. 07/29/2020, the patient is slightly worse. She is still on 15 L high flow nasal cannula. She did desaturate on few occasions that she had to be placed on 100% nonrebreather and she was taken off the nonrebreather again. She is on Decadron. She was on Remdesivir and due to her progression, the patient was switched to Tocilizumab 560 mg IV 1.In regards to her blood work, the LDH level is 04/16/2007 with a CRP level of 7.9. Rest of the electrodes are all within normal limits. Her d-dimer earlier was 9.24 and this needs to be repeated. Electrolytes are all within normal limits. She continues to have lymphopenia with a lymphocyte count of 0.8. She is afebrile. Diet is fair and she is eating approximately 50% of her food trays. On 07/30/2020 patient seen in follow-up on medical surgical floor. She is on 15 L high flow nasal cannula in addition to 100% nonrebreather, and her sats are between 91-96%, she is afebrile, hemodynamically stable, she does get short of breath with any exertion, but appears to be in no acute distress, patient did receive a dose of Toci on 07/28/2020, and her Remdesivir was discontinued early in regards to worsening hypoxemia. Today's labs have been reviewed, and today's d-dimer is 11.3, and inflammatory markers are not available for today, pro-Level Was Low at 0.34, Yesterday's Labs Showed Electrolytes and Renal Profile Daily Were Fairly Unremarkable, Patient Remains on IV Decadron 6 Mg Daily, and Lovenox 30 mg twice daily. Objective - Vital Signs Vital signs: Vital Signs Temp 98.6 F 07/30/20 14:14 Pulse 90 07/30/20 14:14 Resp 20 07/30/20 14:14 BP 101/57 04/19/21 14:14 Pulse Ox 96 07/30/20 14:14 Intake & Output 07/29/20 07/30/20 07/30/20 18:59 06:59 18:59 Other: Voiding Method Diaper Diaper External Catheter External Catheter # Voids 1 2 3 - Exam GENERAL EXAM: Alert, very pleasant, white female, on 15 L per high flow nasal cannula percent or greater with pulse ox between 91-96% comfortable in no apparent distress. HEAD: Normocephalic/atraumatic. EYES: Normal reaction of pupils, equal size. Conjunctiva pink, sclera white. NOSE: Clear with pink turbinates. THROAT: No erythema or exudates. NECK: No masses, no JVD, no thyroid enlargement, no adenopathy. CHEST: No chest wall deformity. Symmetrical expansion. LUNGS: Equal air entry with no crackles, wheeze, rhonchi or dullness. CVS: Regular rate and rhythm, normal S1 and S2, no gallops, no murmurs, no rubs ABDOMEN: Soft, nontender. No hepatosplenomegaly, normal bowel sounds, no guarding or rigidity. EXTREMITIES: No clubbing, no edema, no cyanosis, 2+ pulses and upper and lower extremities. MUSCULOSKELETAL: Muscle strength and tone normal. SPINE: No scoliosis or deformity SKIN: No rashes CENTRAL NERVOUS SYSTEM: Alert and oriented -3. No focal deficits, tone is normal in all 4 extremities. PSYCHIATRIC: Alert and oriented -3. Appropriate affect. Intact judgment and insight. - Labs CBC & Chem 7: 07/28/20 07:37 07/28/20 07:36 Labs: Abnormal Lab Results - Last 24 Hours (Table) 07/30/20 Range/Units 07:36 D-Dimer 11.33 H (<0.60) mg/L FEU Assessment and Plan Plan: Assessment: 1 acute COVID-19 related pneumonia with extensive groundglass changes involving the right lung mainly in the right lower lobe. D-dimer is elevated. Patient has been symptomatic for at least 6-7 days. She says possible COVID-19 approximately 6 days ago. She is presented with worsening shortness of breath and generalized weakness. She initially was on 3 L of oxygen by nasal cannula and her oxygen requirements progressively went up and currently is on a liters. Based on that, I kept on Decadron, discontinue the Remdesivir gave her Tocilizumab , 560 mg IV 1. On today's evaluation, the patient remains on 15 L of oxygen by nasal cannula. No significant change in her condition. Oxygenation remains borderline with the patient is still requiring on and off f acemask to supplemented oxygen especially when she desaturates. 2 acute hypoxic respiratory failure currently on 15 L by nasal cannula 3 known history of coronary artery disease with previous stenting of the LAD, currently inactive in stable 4 history of Sjogren's disease/lupus 5 remote history of DVT of the lower extremity 6 osteoarthritis 7 hypertension 8 hypothyroidism 9 history of TIA without any residual deficits Plan: Continue titrating FiO2 to keep O2 saturations at or above 90% Continue current dose Lovenox and obtain follow-up d-dimer tomorrow Continue monitoring inflammatory markers We'll continue to closely follow her clinical course Continue current dose IV steroids Overall prognosis is guarded I performed a history & physical examination of the patient and discussed their management with my nurse practitioner, Phyllis Zaidi. I reviewed the nurse practitioner's note and agree with the documented findings and plan of care. Lung sounds are positive for diffuse crackles. The findings and the impression was discussed with the patient. I attest to the documentation by the nurse practitioner. Time with Patient: Less than 30
[2020-07-30] MEDS: ATORVASTATIN 20 MG TAB PO SCH (19:44)
--- NOTE | 2020-07-30 21:33 | P.PN ---
Subjective Progress Note Date: 07/30/20 Principal diagnosis: The patient is here admitted for Covid pneumonia. 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 She is responding p oorly at this point. Appreciate pulmonology input. She is difficult to arouse this morning. Objective - Vital Signs Vital signs: Vital Signs Temp 98.1 F 07/30/20 17:57 Pulse 83 07/30/20 17:57 Resp 21 07/30/20 17:57 BP 108/70 07/30/20 17:57 Pulse Ox 95 07/30/20 17:57 Intake & Output 07/30/20 07/30/20 07/31/20 06:59 18:59 06:59 Other: Voiding Method Diaper Diaper External Catheter External Catheter # Voids 2 3 - Constitutional General appearance: Present: average body habitus - EENT Eyes: Absent: abnormal pupil - Neck Neck: Absent: lymphadenopathy - Respiratory Respiratory: bilateral: diminished - Cardiovascular Rhythm: regular Heart sounds: normal: S1, S2 Abnormal Heart Sounds: Absent: S3 Gallop - Gastrointestinal General gastrointestinal: Present: soft. Absent: tenderness - Musculoskeletal Musculoskeletal: Present: generalized weakness - Labs CBC & Chem 7: 07/28/20 07:37 07/28/20 07:36 Labs: Abnormal Lab Results - Last 24 Hours (Table) 07/30/20 Range/Units 07:36 D-Dimer 11.33 H (<0.60) mg/L FEU Assessment and Plan (1) COVID-19 Current Visit: Yes Status: Acute Code(s): U07.1 - COVID-19 SNOMED Code(s): 712532283 (2) Dehydration Current Visit: Yes Status: Acute Code(s): E86.0 - DEHYDRATION SNOMED Code (s): 54892768 (3) Urinary tract infection Current Visit: Yes Status: Acute Code(s): N39.0 - URINARY TRACT INFECTION, SITE NOT SPECIFIED SNOMED Code(s): 20556285 Plan: Continue supportive care. Check CBC and CMP in a.m. Appreciate multiple consultants input. Prognosis is guarded. Recent tragedy of her 's .
[2020-07-31] MEDS: LEVOTHYROXINE 112 MCG TAB PO SCH (04:59)
[2020-07-31] MEDS: GABAPENTIN 400 MG CAP PO SCH ×3 (08:45→21:12)
[2020-07-31] MEDS: METOPROLOL TARTRATE 25 MG TAB PO SCH (08:45)
[2020-07-31] MEDS: PANTOPRAZOLE 40 MG TABLET PO SCH (08:45)
[2020-07-31] MEDS: VENLAFAXINE HCL ER 150 MG CAP PO SCH (08:45)
[2020-07-31] MEDS: FOLIC ACID 1 MG TAB PO SCH (08:45)
[2020-07-31] MEDS: ENOXAPARIN 30 MG/0.3 ML SYRINGE SQ SCH ×2 (08:45→21:11)
[2020-07-31] MEDS: POTASSIUM CHLORIDE ER 20 MEQ TAB.ER PO SCH (08:46)
[2020-07-31] MEDS: DEXAMETHASONE SOD PHOSPHATE 10 MG/ML 1 ML VIAL IV SCH (08:46)
[2020-07-31] MEDS: CEVIMELINE 30 MG CAP PO SCH ×2 (08:47→21:11)
[2020-07-31 08:59] LABS: HCT 42.8 % (37.2-46.3); HGB 14.3 g/dL (12.0-15.0); MCH 32.6 pg (27.0-32.0); MCHC 33.4 g/dL (32.0-37.0); MCV 97.7 fL (80.0-97.0); Mean Platelet Volume 10.5 fL (9.5-12.2); Platelet Count 234 X 10*3/uL (140-440); RBC 4.38 X 10*6/uL (4.10-5.20); RDW 13.5 % (11.5-14.5); WBC 7.81 X 10*3/uL (4.50-10.00)
[2020-07-31 11:45] LABS: Albumin 3.3 g/dL (3.80-4.90); Albumin/Globulin Ratio 1.38 (1.60-3.17); Anion Gap 10.2 mmol/L (4.00-12.00); BUN/Creat Ratio 31.67 Ratio (12.00-20.00); Calcium 8.6 mg/dL (8.7-10.3); Carbon Dioxide 25.8 mmol/L (21.6-31.8); Globulin 2.4 g/dL (1.6-3.3); Non-African American GFR(CKD) 83.7 (60.0-200.0); Potassium 3.7 mmol/L (3.5-5.5); Total Bilirubin 0.7 mg/dL (0.2-1.2); Total Protein 5.7 g/dL (6.2-8.2)
--- NOTE | 2020-07-31 17:47 | P.PN ---
Subjective Progress Note Date: 07/31/20 Principal diagnosis: COVID 19 84-year-old female patient presented to the hospital because of symptoms of weakness and shortness of breath. the patient had a positive COVID-19 test 6 days ago. She was also symptomatic. She days prior to that.She has been COVID- 19 positive and her from complications of COVID-19 infection approximately 4 days ago. The patient has been living alone. She has been quite debilitated and she is not getting around her house and she's been feeling very weak. No complaints of chest pain or abdominal pain or nausea or vomiting or headache or altered mentation. In the emergency, the patient was afebrile. Pulse ox was 92% on 4 L of oxygen by nasal cannula. She looked quite dehydrated and she was started on IV fluids. Blood work showed a white cell count of 8.9 and the patient some lymphopenia. Normal coagulation profile. D-dimer was 9.2. LFTs were abnormal with an AST of 55, ALT of 30, alk phos of 88, LDH was 1671, CRP was 6.7 and COVID-19 was positive. The patient's chest x-ray showed ground glass changes in the right lung and the CAT scan of the chest was also done that showed diffuse ground glass pulmonary infiltrates involving the right lung made in the lung bases addition to some limited change in the left lower lobe. The patient was started on Decadron 6 g IV every 24 hours.she was also started on Decadron 45 mg subcu every 12 hours. She is also on vitamin C, vitamin D and zinc 07/28/2020, the patient is being seen in follow-up. She is sitting in the emergency department and she has moved to a different room. She remains on Decadron 6 mg every 24 hours. She is also on Lovenox 45 mg subcu every 12 hours. Noted the patient was on oxygen at 4 L yesterday and sincethis morning at around 8:00, the patient's oxygen requirements have gradually increased. Currently she is on 15 L of oxygen by nasal cannula. She is feeling slightly more short of breath. She is also more lethargic compared to yesterday. Her LDH level is 04/16/2007 and a CRP level is at 7.6. Electrolytes are all within normal limits. D-dimer from yesterday was 9.24. She continues to have lymphopenia on her white cell count. She is currently on a combination of Decadron and Remdesivir and this is day 2 of treatment. Nevertheless, with increasing oxygen requirements, I think it's highly unlikely the patient is going to respond to Remdesivir and I'm considering starting this medication and often this patient Tocilizumab in conjunction with steroids. 07/29/2020, the patient is slightly worse. She is still on 15 L high flow nasal cannula. She did desaturate on few occasions that she had to be placed on 100% nonrebreather and she was taken off the nonrebreather again. She is on Decadron. She was on Remdesivir and due to her progression, the patient was switched to Tocilizumab 560 mg IV 1.In regards to her blood work, the LDH level is 04/16/2007 with a CRP level of 7.9. Rest of the electrodes are all within normal limits. Her d-dimer earlier was 9.24 and this needs to be repeated. Electrolytes are all within normal limits. She continues to have lymphopenia with a lymphocyte count of 0.8. She is afebrile. Diet is fair and she is eating approximately 50% of her food trays. On 07/30/2020 patient seen in follow-up on medical surgical floor. She is on 15 L high flow nasal cannula in addition to 100% nonrebreather, and her sats are between 91-96%, she is afebrile, hemodynamically stable, she does get short of breath with any exertion, but appears to be in no acute distress, patient did receive a dose of Toci on 07/28/2020, and her Remdesivir was discontinued early in regards to worsening hypoxemia. Today's labs have been reviewed, and today's d-dimer is 11.3, and inflammatory markers are not available for today, pro-Level Was Low at 0.34, Yesterday's Labs Showed Electrolytes and Renal Profile Daily Were Fairly Unremarkable, Patient Remains on IV Decadron 6 Mg Daily, and Lovenox 30 mg twice daily. On 07/31/2020 patient seen in follow-up on medical surgical floor, she still requires high flow oxygen, and she is currently on 15 L high flow nasal cannula and 100% nonrebreather mask, her pulse ox is 88%, she appears to be in no acute distress, she appears very weak, frail, today's is her 's and patient is unable to attend her 's . Afebrile, blood pressure stable. She denies any specific complaints, patient did receive a dose of Toci 07/28/2020, she remains on steroids, despite that her hypoxemia seems to be progressing. Today's labs have been reviewed showing white blood cell count is 7.8, hemoglobin is 14.3, d-dimer is 11.9, electrolytes and renal profile are within normal limits, LDH is down to 539, and CRP is down to 2. Objective - Vital Signs Vital signs: Vital Signs Temp 98 F 07/31/20 14:00 Pulse 88 07/31/20 14:00 Resp 22 07/31/20 14:00 BP 101/65 07/31/20 14:00 Pulse Ox 88 L 07/31/20 14:00 Intake & Output 07/30/20 07/31/20 07/31/20 18:59 06:59 18:59 Output Total 500 Balance -500 Output: Urine 500 Other: Voiding Method Diaper Diaper External Catheter External Catheter # Voids 3 - Exam GENERAL EXAM: Alert, very pleasant, white female, on 15 L per high flow nasal cannula percent or greater with pulse ox between 88% comfortable in no apparent distress. HEAD: Normocephalic/atraumatic. EYES: Normal reaction of pupils, equal size. Conjunctiva pink, sclera white. NOSE: Clear with pink turbinates. THROAT: No erythema or exudates. NECK: No masses, no JVD, no thyroid enlargement, no adenopathy. CHEST: No chest wall deformity. Symmetrical expansion. LUNGS: Equal air entry with no crackles, wheeze, rhonchi or dullness. CVS: Regular rate and rhythm, normal S1 and S2, no gallops, no murmurs, no rubs ABDOMEN: Soft, nontender. No hepatosplenomegaly, normal bowel sounds, no guarding or rigidity. EXTREMITIES: No clubbing, no edema, no cyanosis, 2+ pulses and upper and lower extremities. MUSCULOSKELETAL: Muscle strength and tone normal. SPINE: No scoliosis or deformity SKIN: No rashes CENTRAL NERVOUS SYSTEM: Alert and oriented -3. No focal deficits, tone is normal in all 4 extremities. PSYCHIATRIC: Alert and oriented -3. Appropriate affect. Intact judgment and insight. - Labs CBC & Chem 7: 07/31/20 06:34 07/31/20 06:34 Labs: Abnormal Lab Results - Last 24 Hours (Table) 07/31/20 07/31/20 07/31/20 Range/Units 06:34 06:34 06:34 MCV 97.7 H (80.0-97.0) fL MCH 32.6 H (27.0-32.0) pg D-Dimer 11.95 H (<0.60) mg/L FEU BUN/Creatinine Ratio 31.67 H (12.00-20.00) Ratio Calcium 8.6 L (8.7-10.3) mg/dL AST 47 H (13-35) U/L Lactate Dehydrogenase 539 H (120-246) U/L C-Reactive Protein 2.0 H (0.0-0.8) mg/dL Total Protein 5.7 L (6.2-8.2) g/dL Albumin 3.30 L (3.80-4.90) g/dL Albumin/Globulin Ratio 1.38 L (1.60-3.17) g/dL Assessment and Plan Plan: Assessment: 1 acute COVID-19 related pneumonia with extensive groundglass changes involving the right lung mainly in the right lower lobe. D-dimer is elevated. Patient has been symptomatic for at least 6-7 days. She says possible COVID-19 approximately 6 days ago. She is presented with worsening shortness of breath and generalized weakness. She initially was on 3 L of oxygen by nasal cannula a nd her oxygen requirements progressively went up and currently is on a liters. Based on that, I kept on Decadron, discontinue the Remdesivir gave her Tocilizumab , 560 mg IV 1. On today's evaluation, the patient remains on 15 L of oxygen by nasal cannula. No significant change in her condition. Oxygenation remains borderline with the patient is still requiring on and off facemask to supplemented oxygen especially when she desaturates. 2 acute hypoxic respiratory failure currently on 15 L by nasal cannula 3 known history of coronary artery disease with previous stenting of the LAD, currently inactive in stable 4 history of Sjogren's disease/lupus 5 remote history of DVT of the lower extremity 6 osteoarthritis 7 hypertension 8 hypothyroidism 9 history of TIA without any residual deficits Plan: Continue current medical treatment Continue Decadron Patient is status post TOcilizumab on 07/28/2020 Continue current dose Lovenox and will continue to follow her d-dimer Inflammatory markers are improving But clinically her hypoxemia is worsening CODE STATUS is DO NOT RESUSCITATE Patient is grieving her who she lost one week ago to COVID-19, and today was the day of his Continue supportive treatment, overall prognosis is poor and guarded I performed a history & physical examination of the patient and discussed their management with my nurse practitioner, Phyllis Zaidi. I reviewed the nurse practitioner's note and agree with the documented findings and plan of care. Lung sounds are positive for diffuse crackles. The findings and the impression was discussed with the patient. I attest to the documentation by the nurse practitioner. Time with Patient: Less than 30
[2020-07-31] MEDS: ATORVASTATIN 20 MG TAB PO SCH (21:12)
--- NOTE | 2020-07-31 22:51 | P.PN ---
Subjective Principal diagnosis: The patient is here admitted for Covid pneumonia. 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 She is responding poorly at this point. Appreciate pulmonology input. The patient is much more alert and emotionally appropriate given grief reaction related to her 's . She is able to hold conversation appropriately but is still on high flow oxygen. Objective - Vital Signs Vital signs: Vital Signs Temp 97.8 F 07/31/20 17:44 Pulse 92 07/31/20 17:44 Resp 20 07/31/20 17:44 BP 118/67 07/31/20 17:44 Pulse Ox 85 L 07/31/20 17:44 Intake & Output 07/31/20 07/31/20 08/01/20 06:59 18:59 06:59 Output Total 500 Balance -500 Output: Urine 500 Other: Voiding Method Diaper External Catheter # Voids 3 - Constitutional General appearance: Present: no acute distress - EENT Eyes: Absent: abnormal pupil - Neck Neck: Absent: lymphadenopathy - Respiratory Respiratory: bilateral: diminished - Cardiovascular Rhythm: regular Heart sounds: normal: S1, S2 Abnormal Heart Sounds: Absent: S3 Gallop - Gastrointestinal General gastrointestinal: Present: soft. Absent: tenderness - Integumentary Integumentary: Present: normal - Neurologic Neurologic: Present: CNII-XII intact - Labs CBC & Chem 7: 07/31/20 06:34 07/31/20 06:34 Labs: Abnormal Lab Results - Last 24 Hours (Table) 07/31/20 07/31/20 07/31/20 Range/Units 06:34 06:34 06:34 MCV 97.7 H (80.0-97.0) fL MCH 32.6 H (27.0-32.0) pg D-Dimer 11.95 H (<0.60) mg/L FEU BUN/Creatinine Ratio 31.67 H (12.00-20.00) Ratio Calcium 8.6 L (8.7-10.3) mg/dL AST 47 H (13-35) U/L Lactate Dehydrogenase 539 H (120-246) U/L C-Reactive Protein 2.0 H (0.0-0.8) mg/dL Total Protein 5.7 L (6.2-8.2) g/dL Albumin 3.30 L (3.80-4.90) g/dL Albumin/Globulin Ratio 1.38 L (1.60-3.17) g/dL Assessment and Plan (1) COVID-19 Current Visit: Yes Status: Acute Code(s): U07.1 - COVID-19 SNOMED Code(s): 363839550 (2) Dehydration Current Visit: Yes Status: Acute Code(s): E86.0 - DEHYDRATION SNOMED Code(s): 95803991 (3) Urinary tract infection Current Visit: Yes Status: Acute Code(s): N39.0 - URINARY TRACT INFECTION, SITE NOT SPECIFIED SNOMED Code(s): 76019542 (4) Grief Current Visit: Yes Status: Acute Code(s): F43.21 - ADJUSTMENT DISORDER WITH DEPRESSED MOOD SNOMED Code(s): 042837989 Plan: Continue current regimen of treatment. Trajectory of recovery is improving compared to yesterday clinically. Check CBC and CMP in the a.m. I had a long discussion with her son about her prognosis.
[2020-08-01] MEDS: LEVOTHYROXINE 112 MCG TAB PO SCH (06:23)
[2020-08-01] MEDS: FOLIC ACID 1 MG TAB PO SCH (08:25)
[2020-08-01] MEDS: VENLAFAXINE HCL ER 150 MG CAP PO SCH (08:25)
[2020-08-01] MEDS: PANTOPRAZOLE 40 MG TABLET PO SCH (08:25)
[2020-08-01] MEDS: ENOXAPARIN 30 MG/0.3 ML SYRINGE SQ SCH ×2 (08:26→23:39)
[2020-08-01] MEDS: GABAPENTIN 400 MG CAP PO SCH ×3 (08:26→23:39)
[2020-08-01] MEDS: METOPROLOL TARTRATE 25 MG TAB PO SCH (08:26)
[2020-08-01] MEDS: CEVIMELINE 30 MG CAP PO SCH ×2 (08:26→23:39)
[2020-08-01] MEDS: POTASSIUM CHLORIDE ER 20 MEQ TAB.ER PO SCH (08:29)
[2020-08-01] MEDS: DEXAMETHASONE SOD PHOSPHATE 10 MG/ML 1 ML VIAL IV SCH (08:30)
--- NOTE | 2020-08-01 08:50 | P.PN ---
Subjective Principal diagnosis: The patient is here admitted for Covid pneumonia. 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 She is responding poorly at this point. Appreciate pulmonology input. The patient is much more alert and emotionally appropriate given grief reaction related to her 's . She is able to hold conversation appropriately but is still on high flow oxygen. No new voiding difficulties. We talked about what her life expectation should be now that her this past. Objective - Vital Signs Vital signs: Vital Signs Temp 99 F 08/01/20 06:00 Pulse 98 08/01/20 06:00 Resp 18 08/01/20 06:00 BP 110/70 08/01/20 06:00 Pulse Ox 88 L 08/01/20 08:19 Intake & Output 07/31/20 08/01/20 08/01/20 18:59 06:59 18:59 Output Total 400 Balance -400 Output: Urine 400 Other: Voiding Method Diaper External Catheter # Voids 3 - Constitutional General appearance: Present: average body habitus - EENT Eyes: Absent: abnormal pupil - Neck Neck: Absent: lymphadenopathy - Respiratory Respiratory: bilateral: diminished - Cardiovascular Rhythm: regular Heart sounds: normal: S1, S2 Abnormal Heart Sounds: Absent: S3 Gallop - Gastrointestinal General gastrointestinal: Present: soft. Absent: tenderness - Integumentary Integumentary: Absent: cellulitis - Labs CBC & Chem 7: 07/31/20 06:34 07/31/20 06:34 Labs: Abnormal Lab Results - Last 24 Hours (Table) 07/31/20 07/31/20 08/01/20 Range/Units 06:34 06:34 07:00 MCV 97.7 H (80.0-97.0) fL MCH 32.6 H (27.0-32.0) pg D-Dimer 17.04 H (<0.60) mg/L FEU BUN/Creatinine Ratio 31.67 H (12.00-20.00) Ratio Calcium 8.6 L (8.7-10.3) mg/dL AST 47 H (13-35) U/L Lactate Dehydrogenase 539 H (120-246) U/L C-Reactive Protein 2.0 H (0.0-0.8) mg/dL Total Protein 5.7 L (6.2-8.2) g/dL Albumin 3.30 L (3.80-4.90) g/dL Albumin/Globulin Ratio 1.38 L (1.60-3.17) g/dL Assessment and Plan (1) COVID-19 Current Visit: Yes Status: Acute Code(s): U07.1 - COVID-19 SNOMED Code(s): 910385649 (2) Dehydration Current Visit: Yes Status: Acute Code(s): E86.0 - DEHYDRATION SNOMED Code(s): 88721426 (3) Urinary tract infection Current Visit: Yes Status: Acute Code(s): N39.0 - URINARY TRACT INFECTION, SITE NOT SPECIFIED SNOMED Code(s): 92435649 (4) Grief Current Visit: Yes Status: Acute Code(s): F43.21 - ADJUSTMENT DISORDER WITH DEPRESSED MOOD SNOMED Code(s): 944247516 Plan: Continue current regimen of treatment. Trajectory of recovery is improving compared to yesterday clinically. Check CBC and CMP in the a.m. I had a long discussion with her son about her prognosis.
[2020-08-01 12:03] LABS: C Reactive Protein 1.1 mg/dL (0.0-0.8)
--- NOTE | 2020-08-01 17:09 | P.PN ---
Subjective Progress Note Date: 08/01/20 Principal diagnosis: COVID 19 84-year-old female patient presented to the hospital because of symptoms of weakness and shortness of breath. the patient had a positive COVID-19 test 6 days ago. She was also symptomatic. She days prior to that.She has been COVID- 19 positive and her from complications of COVID-19 infection approximately 4 days ago. The patient has been living alone. She has been quite debilitated and she is not getting around her house and she's been feeling very weak. No complaints of chest pain or abdominal pain or nausea or vomiting or headache or altered mentation. In the emergency, the patient was afebrile. Pulse ox was 92% on 4 L of oxygen by nasal cannula. She looked quite dehydrated and she was started on IV fluids. Blood work showed a white cell count of 8.9 and the patient some lymphopenia. Normal coagulation profile. D-dimer was 9.2. LFTs were abnormal with an AST of 55, ALT of 30, alk phos of 88, LDH was 1671, CRP was 6.7 and COVID-19 was positive. The patient's chest x-ray showed ground glass changes in the right lung and the CAT scan of the chest was also done that showed diffuse ground glass pulmonary infiltrates involving the right lung made in the lung bases addition to some limited change in the left lower lobe. The patient was started on Decadron 6 g IV every 24 hours.she was also started on Decadron 45 mg subcu every 12 hours. She is also on vitamin C, vitamin D and zinc 07/28/2020, the patient is being seen in follow-up. She is sitting in the emergency department and she has moved to a different room. She remains on Decadron 6 mg every 24 hours. She is also on Lovenox 45 mg subcu every 12 hours. Noted the patient was on oxygen at 4 L yesterday and sincethis morning at around 8:00, the patient's oxygen requirements have gradually increased. Currently she is on 15 L of oxygen by nasal cannula. She is feeling slightly more short of breath. She is also more lethargic compared to yesterday. Her LDH level is 04/16/2007 and a CRP level is at 7.6. Electrolytes are all within normal limits. D-dimer from yesterday was 9.24. She continues to have lymphopenia on her white cell count. She is currently on a combination of Decadron and Remdesivir and this is day 2 of treatment. Nevertheless, with increasing oxygen requirements, I think it's highly unlikely the patient is going to respond to Remdesivir and I'm considering starting this medication and often this patient Tocilizumab in conjunction with steroids. 07/29/2020, the patient is slightly worse. She is still on 15 L high flow nasal cannula. She did desaturate on few occasions that she had to be placed on 100% nonrebreather and she was taken off the nonrebreather again. She is on Decadron. She was on Remdesivir and due to her progression, the patient was switched to Tocilizumab 560 mg IV 1.In regards to her blood work, the LDH level is 04/16/2007 with a CRP level of 7.9. Rest of the electrodes are all within normal limits. Her d-dimer earlier was 9.24 and this needs to be repeated. Electrolytes are all within normal limits. She continues to have lymphopenia with a lymphocyte count of 0.8. She is afebrile. Diet is fair and she is eating approximately 50% of her food trays. On 07/30/2020 patient seen in follow-up on medical surgical floor. She is on 15 L high flow nasal cannula in addition to 100% nonrebreather, and her sats are between 91-96%, she is afebrile, hemodynamically stable, she does get short of breath with any exertion, but appears to be in no acute distress, patient did receive a dose of Toci on 07/28/2020, and her Remdesivir was discontinued early in regards to worsening hypoxemia. Today's labs have been reviewed, and today's d-dimer is 11.3, and inflammatory markers are not available for today, pro-Level Was Low at 0.34, Yesterday's Labs Showed Electrolytes and Renal Profile Daily Were Fairly Unremarkable, Patient Remains on IV Decadron 6 Mg Daily, and Lovenox 30 mg twice daily. On 07/31/2020 patient seen in follow-up on medical surgical floor, she still requires high flow oxygen, and she is currently on 15 L high flow nasal cannula and 100% nonrebreather mask, her pulse ox is 88%, she appears to be in no acute distress, she appears very weak, frail, today's is her 's and patient is unable to attend her 's . Afebrile, blood pressure stable. She denies any specific complaints, patient did receive a dose of Toci 07/28/2020, she remains on steroids, despite that her hypoxemia seems to be progressing. Today's labs have been reviewed showing white blood cell count is 7.8, hemoglobin is 14.3, d-dimer is 11.9, electrolytes and renal profile are within normal limits, LDH is down to 539, and CRP is down to 2. On 08/02/1999 the patient seen in follow-up on medical surgical floor. She continues on 15 L high flow and 100% nonrebreather mask, she states she's feeling a little better, she is resting in bed, she is weak, her oral intake is poor, but she denies any worsening dyspnea, and her work of breathing does not seem to be increased. Her pulse ox on 15 L of high flow cannula and NONREBREATHER IS 94%, SHE IS AFEBRILE, HEMODYNAMICALLY SHE STABLE, DENIES ANY CHEST DISCOMFORT. She denies any cough, denies any nausea vomiting or diarrhea, no recent chest x-ray, her d-dimer continues to trend up, and is currently up at 17.04, LDH is 583, and CRP is 1.1. Patient has completed a course of Remdesivir, she was also given Tocilizumab on 07/28/2020 Objective - Vital Signs Vital signs: Vital Signs Temp 98.3 F 08/01/20 09:12 Pulse 79 08/01/20 09:12 Resp 18 08/01/20 09:12 BP 91/49 08/01/20 09:12 Pulse Ox 94 L 08/01/20 09:12 Intake & Output 07/31/20 08/01/20 08/01/20 18:59 06:59 18:59 Output Total 400 Balance -400 Output: Urine 400 Other: Voiding Method Diaper External Catheter # Voids 3 - Exam GENERAL EXAM: Alert, very pleasant, white female, on 15 L per high flow nasal cannula and 100% nonrebreather mask HEAD: Normocephalic/atraumatic. EYES: Normal reaction of pupils, equal size. Conjunctiva pink, sclera white. NOSE: Clear with pink turbinates. THROAT: No erythema or exudates. NECK: No masses, no JVD, no thyroid enlargement, no adenopathy. CHEST: No chest wall deformity. Symmetrical expansion. LUNGS: Equal air entry with no crackles, wheeze, rhonchi or dullness. CVS: Regular rate and rhythm, normal S1 and S2, no gallops, no murmurs, no rubs ABDOMEN: Soft, nontender. No hepatosplenomegaly, normal bowel sounds, no guarding or rigidity. EXTREMITIES: No clubbing, no edema, no cyanosis, 2+ pulses and upper and lower extremities. MUSCULOSKELETAL: Muscle strength and tone normal. SPINE: No scoliosis or deformity SKIN: No rashes CENTRAL NERVOUS SYSTEM: Alert and oriented -3. No focal deficits, tone is normal in all 4 extremities. PSYCHIATRIC: Alert and oriented -3. Appropriate affect. Intact judgment and insight. - Labs CBC & Chem 7: 07/31/20 06:34 07/31/20 06:34 Labs: Abnormal Lab Results - Last 24 Hours (Table) 08/01/20 08/01/20 Range/Units 07:00 07:00 D-Dimer 17.04 H (<0.60) mg/L FEU Lactate Dehydrogenase 583 H (120-246) U/L C-Reactive Protein 1.1 H (0.0-0.8) mg/dL Assessment and Plan Plan: Assessment: 1 acute COVID-19 related pneumonia with extensive groundglass changes involving the right lung mainly in the right lower lobe. D-dimer is elevated. Patient dasilva s been symptomatic for at least 6-7 days. She says possible COVID-19 approximately 6 days ago. She is presented with worsening shortness of breath and generalized weakness. She initially was on 3 L of oxygen by nasal cannula and her oxygen requirements progressively went up and currently is on a liters. Based on that, I kept on Decadron, discontinue the Remdesivir gave her Tocilizumab , 560 mg IV 1. On today's evaluation, the patient remains on 15 L of oxygen by nasal cannula. No significant change in her condition. Oxygenation remains borderline with the patient is still requiring on and off facemask to supplemented oxygen especially when she desaturates. 2 acute hypoxic respiratory failure currently on 15 L by nasal cannula 3 known history of coronary artery disease with previous stenting of the LAD, currently inactive in stable 4 history of Sjogren's disease/lupus 5 remote history of DVT of the lower extremity 6 osteoarthritis 7 hypertension 8 hypothyroidism 9 history of TIA without any residual deficits Plan: Continues to require high flow oxygen in the 100% nonrebreather, but denies any worsening dyspnea Increase Decadron to twice daily Continue Lovenox at 30 mg twice daily, obtain CT chest and lower extremity Dopplers Patient is status post TOcilizumab on 07/28/2020 Continue supportive treatment, overall prognosis is poor and guarded I performed a history & physical examination of the patient and discussed their management with my nurse practitioner, Phyllis Zaidi. I reviewed the nurse practitioner's note and agree with the documented findings and plan of care. Lung sounds are positive for diffuse crackles. The findings and the impression was discussed with the patient. I attest to the documentation by the nurse practitioner. Time with Patient: Less than 30
--- NOTE | 2020-08-01 20:32 | CT ---
EXAMINATION TYPE: CT chest angio for PE DATE OF EXAM: 08/01/2020 COMPARISON: CTA chest 07/27/2020 HISTORY: Shortness of breath. Covid 19. High d-dimer. CT DLP: 325.2 mGycm Automated exposure control for dose reduction was used. CONTRAST: CT Chest for pulmonary embolism performed with with IV Contrast, patient injected with 50 mL of Isovu e 370. FINDINGS: LUNGS: Unchanged extensive groundglass opacities, interlobular septal thickening, and bibasilar airsp mray opacities versus 07/27/2020. There is no pleural effusion or pneumothorax seen. The tracheobronch ial tree is patent. MEDIASTINUM: There is satisfactory enhancement of the main and proximal segmental pulmonary arteries with no evidence of large central pulmonary emboli. There is inadequate opacification of the distal s egmental and subsegmental pulmonary arteries bilaterally. The thoracic aorta is normal in caliber. No pericardial effusion. Calcified coronary artery disease. There is reactive right hilar lymphadenopat hy. OTHER: No axillary lymphadenopathy. Small hiatal hernia. Degenerative changes of the spine. IMPRESSION: 1. No evidence of large central pulmonary emboli. Inadequate opacification to assess the subsegmental pulmonary arteries bilaterally. 2. Extensive opacities of the bilateral lungs consistent with history of Covid 19, unchanged versus .
--- NOTE | 2020-08-01 22:31 | US ---
EXAMINATION TYPE: US venous doppler duplex LE DATE OF EXAM: 08/01/2020 7:45 PM COMPARISON: US 2016 CLINICAL HISTORY: rule out DVt. Exam done portable. SIDE PERFORMED: Bilateral TECHNIQUE: The lower extremity deep venous system is examined utilizing real time linear array sonog alden with graded compression, doppler sonography and color-flow sonography. VESSELS IMAGED: Common Femoral Vein Deep Femoral Vein Greater Saphenous Vein * Femoral Vein Popliteal Vein Small Saphenous Vein * Proximal Calf Veins (* superficial vessels) Right Leg: Appears negative for DVT Left Leg: Appears negative for DVT IMPRESSION: No evidence of deep vein thrombosis in both legs.
[2020-08-01] MEDS: ATORVASTATIN 20 MG TAB PO SCH (23:39)
[2020-08-02] MEDS: LEVOTHYROXINE 112 MCG TAB PO SCH (06:06)
[2020-08-02] MEDS: ACETAMINOPHEN TAB 325 MG TAB PO PRN (06:06)
[2020-08-02] MEDS: POTASSIUM CHLORIDE ER 20 MEQ TAB.ER PO SCH (09:15)
[2020-08-02] MEDS: ENOXAPARIN 30 MG/0.3 ML SYRINGE SQ SCH ×2 (09:28→21:06)
[2020-08-02] MEDS: DEXAMETHASONE SOD PHOSPHATE 10 MG/ML 1 ML VIAL IV SCH (09:36)
[2020-08-02] MEDS: FOLIC ACID 1 MG TAB PO SCH (09:37)
[2020-08-02] MEDS: GABAPENTIN 400 MG CAP PO SCH ×3 (09:37→21:06)
[2020-08-02] MEDS: PANTOPRAZOLE 40 MG TABLET PO SCH (09:37)
[2020-08-02] MEDS: METOPROLOL TARTRATE 25 MG TAB PO SCH (09:37)
[2020-08-02] MEDS: CEVIMELINE 30 MG CAP PO SCH ×2 (09:39→21:06)
[2020-08-02 11:02] LABS: HCT 43.8 % (37.2-46.3); HGB 14.4 g/dL (12.0-15.0); MCH 31.8 pg (27.0-32.0); MCHC 32.9 g/dL (32.0-37.0); MCV 96.7 fL (80.0-97.0); Mean Platelet Volume 10.7 fL (9.5-12.2); Platelet Count 165 X 10*3/uL (140-440); RBC 4.53 X 10*6/uL (4.10-5.20); RDW 13.8 % (11.5-14.5); WBC 10.53 X 10*3/uL (4.50-10.00)
[2020-08-02 11:38] LABS: Albumin 3.2 g/dL (3.80-4.90); Albumin/Globulin Ratio 1.45 (1.60-3.17); Anion Gap 9.5 mmol/L (4.00-12.00); C Reactive Protein 0.9 mg/dL (0.0-0.8); Calcium 8.6 mg/dL (8.7-10.3); Carbon Dioxide 24.5 mmol/L (21.6-31.8); Globulin 2.2 g/dL (1.6-3.3); Non-African American GFR(CKD) 83.7 (60.0-200.0); Potassium 3.3 mmol/L (3.5-5.5); Total Bilirubin 0.6 mg/dL (0.3-1.2); Total Protein 5.4 g/dL (6.2-8.2)
[2020-08-02 11:56] LABS: Basophils # (A) 0.02 X 10*3/uL (0.00-0.10); Basophils % (A) 0.2 %; Eosinophils # (A) 0.26 X 10*3/uL (0.04-0.35); Eosinophils % (A) 2.5 %; Lymphocytes % (A) 7.6 %; Monocytes # (A) 0.18 X 10*3/uL (0.20-1.00); Monocytes % (A) 1.7 %; Neutrophils # (A) 9.16 X 10*3/uL (1.80-7.70)
--- NOTE | 2020-08-02 17:10 | P.PN ---
Subjective Progress Note Date: 08/02/20 Principal diagnosis: COVID 19 84-year-old female patient presented to the hospital because of symptoms of weakness and shortness of breath. the patient had a positive COVID-19 test 6 days ago. She was also symptomatic. She days prior to that.She has been COVID- 19 positive and her from complications of COVID-19 infection approximately 4 days ago. The patient has been living alone. She has been quite debilitated and she is not getting around her house and she's been feeling very weak. No complaints of chest pain or abdominal pain or nausea or vomiting or headache or altered mentation. In the emergency, the patient was afebrile. Pulse ox was 92% on 4 L of oxygen by nasal cannula. She looked quite dehydrated and she was started on IV fluids. Blood work showed a white cell count of 8.9 and the patient some lymphopenia. Normal coagulation profile. D-dimer was 9.2. LFTs were abnormal with an AST of 55, ALT of 30, alk phos of 88, LDH was 1671, CRP was 6.7 and COVID-19 was positive. The patient's chest x-ray showed ground glass changes in the right lung and the CAT scan of the chest was also done that showed diffuse ground glass pulmonary infiltrates involving the right lung made in the lung bases addition to some limited change in the left lower lobe. The patient was started on Decadron 6 g IV every 24 hours.she was also started on Decadron 45 mg subcu every 12 hours. She is also on vitamin C, vitamin D and zinc 07/28/2020, the patient is being seen in follow-up. She is sitting in the emergency department and she has moved to a different room. She remains on Decadron 6 mg every 24 hours. She is also on Lovenox 45 mg subcu every 12 hours. Noted the patient was on oxygen at 4 L yesterday and sincethis morning at around 8:00, the patient's oxygen requirements have gradually increased. Currently she is on 15 L of oxygen by nasal cannula. She is feeling slightly more short of breath. She is also more lethargic compared to yesterday. Her LDH level is 04/16/2007 and a CRP level is at 7.6. Electrolytes are all within normal limits. D-dimer from yesterday was 9.24. She continues to have lymphopenia on her white cell count. She is currently on a combination of Decadron and Remdesivir and this is day 2 of treatment. Nevertheless, with increasing oxygen requirements, I think it's highly unlikely the patient is going to respond to Remdesivir and I'm considering starting this medication and often this patient Tocilizumab in conjunction with steroids. 07/29/2020, the patient is slightly worse. She is still on 15 L high flow nasal cannula. She did desaturate on few occasions that she had to be placed on 100% nonrebreather and she was taken off the nonrebreather again. She is on Decadron. She was on Remdesivir and due to her progression, the patient was switched to Tocilizumab 560 mg IV 1.In regards to her blood work, the LDH level is 04/16/2007 with a CRP level of 7.9. Rest of the electrodes are all within normal limits. Her d-dimer earlier was 9.24 and this needs to be repeated. Electrolytes are all within normal limits. She continues to have lymphopenia with a lymphocyte count of 0.8. She is afebrile. Diet is fair and she is eating approximately 50% of her food trays. On 07/30/2020 patient seen in follow-up on medical surgical floor. She is on 15 L high flow nasal cannula in addition to 100% nonrebreather, and her sats are between 91-96%, she is afebrile, hemodynamically stable, she does get short of breath with any exertion, but appears to be in no acute distress, patient did receive a dose of Toci on 07/28/2020, and her Remdesivir was discontinued early in regards to worsening hypoxemia. Today's labs have been reviewed, and today's d-dimer is 11.3, and inflammatory markers are not available for today, pro-Level Was Low at 0.34, Yesterday's Labs Showed Electrolytes and Renal Profile Daily Were Fairly Unremarkable, Patient Remains on IV Decadron 6 Mg Daily, and Lovenox 30 mg twice daily. On 07/31/2020 patient seen in follow-up on medical surgical floor, she still requires high flow oxygen, and she is currently on 15 L high flow nasal cannula and 100% nonrebreather mask, her pulse ox is 88%, she appears to be in no acute distress, she appears very weak, frail, today's is her 's and patient is unable to attend her 's . Afebrile, blood pressure stable. She denies any specific complaints, patient did receive a dose of Toci 07/28/2020, she remains on steroids, despite that her hypoxemia seems to be progressing. Today's labs have been reviewed showing white blood cell count is 7.8, hemoglobin is 14.3, d-dimer is 11.9, electrolytes and renal profile are within normal limits, LDH is down to 539, and CRP is down to 2. On 08/02/1999 the patient seen in follow-up on medical surgical floor. She continues on 15 L high flow and 100% nonrebreather mask, she states she's feeling a little better, she is resting in bed, she is weak, her oral intake is poor, but she denies any worsening dyspnea, and her work of breathing does not seem to be increased. Her pulse ox on 15 L of high flow cannula and NONREBREATHER IS 94%, SHE IS AFEBRILE, HEMODYNAMICALLY SHE STABLE, DENIES ANY CHEST DISCOMFORT. She denies any cough, denies any nausea vomiting or diarrhea, no recent chest x-ray, her d-dimer continues to trend up, and is currently up at 17.04, LDH is 583, and CRP is 1.1. Patient has completed a course of Remdesivir, she was also given Tocilizumab on 07/28/2020 On 08/02/2020 patient is seen in follow-up, still requiring high flow oxygen, with the patient is high flow and percent nonrebreather, her pulse ox is between 85-94%, patient is very weak, fatigued, her oral intake is very poor, the nurse reports that she has not been eating much, she is afebrile, although she denies worsening dyspnea she appears to be debilitated, and weak. Her d-dimer continues to trend up and is currently at 25.71, and CTA chest was completed last night showing no evidence of large central pulmonary embolism, and there was inadequate opacification to assess to subsegmental pulmonary arteries, converted extensive opacities the bilateral lungs consistent with history of COVID-19, lower extremity Dopplers were negative for DVT Objective - Vital Signs Vital signs: Vital Signs Temp 98.1 F 08/02/20 13:33 Pulse 85 08/02/20 13:33 Resp 20 08/02/20 13:33 BP 109/71 08/02/20 13:33 Pulse Ox 94 L 08/02/20 13:33 Intake & Output 08/01/20 08/02/20 08/02/20 18:59 06:59 18:59 Output Total 300 Balance -300 Weight 71 kg Output: Urine 300 Other: Voiding Method Diaper Diaper External Catheter External Catheter # Voids 3 4 # Bowel Movements 1 - Exam GENERAL EXAM: Alert, very pleasant, white female, on 15 L per high flow nasal cannula and 100% nonrebreather mask HEAD: Normocephalic/atraumatic. EYES: Normal reaction of pupils, equal size. Conjunctiva pink, sclera white. NOSE: Clear with pink turbinates. THROAT: No erythema or exudates. NECK: No masses, no JVD, no thyroid enlargement, no adenopathy. CHEST: No chest wall deformity. Symmetrical expansion. LUNGS: Equal air entry with no crackles, wheeze, rhonchi or dullness. CVS: Regular rate and rhythm, normal S1 and S2, no gallops, no murmurs, no rubs ABDOMEN: Soft, nontender. No hepatosplenomegaly, normal bowel sounds, no guarding or rigidity. EXTREMITIES: No clubbing, no edema, no cyanosis, 2+ pulses and upper and lower extremities. MUSCULOSKELETAL: Muscle strength and tone normal. SPINE: No scoliosis or deformity SKIN: No rashes CENTRAL NERVOUS SYSTEM: Alert and oriented -3. No focal deficits, tone is normal in all 4 extremities. PSYCHIATRIC: Alert and oriented -3. Appropriate affect. Intact judgment and insight. - Labs CBC & Chem 7: 08/02/20 07:01 08/02/20 07:01 Labs: Abnormal Lab Results - Last 24 Hours (Table) 08/02/20 08/02/20 08/02/20 Range/Units 07:01 07:01 07:01 WBC 10.53 H (4.50-10.00) X 10*3/uL Immature Gran # 0.11 H (0.00-0.04) X 10*3/uL Neutrophils # 9.16 H (1.80-7.70) X 10*3/uL Lymphocytes # 0.80 L (0.90-5.00) X 10*3/uL Monocytes # 0.18 L (0.20-1.00) X 10*3/uL D-Dimer 25.71 H (<0.60) mg/L FEU Potassium 3.3 L (3.5-5.5) mmol/L BUN/Creatinine Ratio 35.00 H (12.00-20.00) Ratio Glucose 115 H (70-110) mg/dL Calcium 8.6 L (8.7-10.3) mg/dL Alkaline Phosphatase 145 H (41-126) U/L Lactate Dehydrogenase 593 H (120-246) U/L C-Reactive Protein 0.9 H (0.0-0.8) mg/dL Total Protein 5.4 L (6.2-8.2) g/dL Albumin 3.20 L (3.80-4.90) g/dL Albumin/Globulin Ratio 1.45 L (1.60-3.17) g/dL Assessment and Plan Plan: Assessment: #1. acute COVID-19 related pneumonia with extensive groundglass changes involving the right lung mainly in the right lower lobe. D-dimer is elevated. Patient has been symptomatic for at least 6-7 days. She says possible COVID-19 approximately 6 days ago. She is presented with worsening shortness of breath and generalized weakness. She initially was on 3 L of oxygen by nasal cannula and her oxygen requirements progressively went up and currently is on a liters. Based on that, I kept on Decadron, discontinue the Remdesivir gave her Tocilizumab , 560 mg IV 1. On today's evaluation, the patient remains on 15 L of oxygen by nasal cannula. No significant change in her condition. Oxygenation remains borderline with the patient is still requiring on and off facemask to supplemented oxygen especially when she desaturates. #2. acute hypoxic respiratory failure currently on 15 L by nasal cannula #3. known history of coronary artery disease with previous stenting of the LAD, currently inactive in stable #4. history of Sjogren's disease/lupus #5. remote history of DVT of the lower extremity #6. osteoarthritis #7. hypertension #8. hypothyroidism #9. history of TIA without any residual deficits Plan: Titrating FiO2 to maintain O2 saturation above 90% No worsening dyspnea Decreased appetite, weakness, fatigue, and diminished oral intake Recommend inserting NG tube and start tube feedings Consult RD for tube feeding recommendation Overall prognosis is poor and guarded Continue supportive treatment I performed a history & physical examination of the patient and discussed their management with my nurse practitioner, Phyllis Zaidi. I reviewed the nurse practitioner's note and agree with the documented findings and plan of care. Lung sounds are positive for diffuse crackles. The findings and the impression was discussed with the patient. I attest to the documentation by the nurse pra ctitioner. Time with Patient: Less than 30
[2020-08-02] MEDS: ATORVASTATIN 20 MG TAB PO SCH (21:06)
[2020-08-03] MEDS: LEVOTHYROXINE 112 MCG TAB PO SCH (06:11)
--- NOTE | 2020-08-03 08:23 | P.PN ---
Subjective Principal diagnosis: The patient is here admitted for Covid pneumonia. 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 She is responding poorly at this point. Appreciate pulmonology input. The patient is much more alert and emotionally appropriate given grief reaction related to her 's . She is able to hold conversation appropriately but is still on high flow oxygen. No new voiding difficulties. We talked about what her life expectation should be now that her this past. Increase by mouth intake. Objective - Vital Signs Vital signs: Vital Signs Temp 98.5 F 08/03/20 05:23 Pulse 100 08/03/20 05:23 Resp 20 08/03/20 01:02 BP 121/76 08/03/20 05:23 Pulse Ox 90 L 08/03/20 05:23 Intake & Output 08/02/20 08/03/20 08/03/20 18:59 06:59 18:59 Weight 71 kg 72.5 kg Other: Voiding Method Diaper Diaper External Catheter External Catheter - Constitutional General appearance: Present: cooperative, mild distress - EENT Eyes: Absent: abnormal pupil - Neck Neck: Absent: lymphadenopathy - Respiratory Respiratory: bilateral: diminished - Cardiovascular Rhythm: regular Heart sounds: normal: S1, S2 Abnormal Heart Sounds: Absent: S3 Gallop - Gastrointestinal General gastrointestinal: Present: soft. Absent: tenderness - Neurologic Neurologic: Present: CNII-XII intact - Labs CBC & Chem 7: 08/02/20 07:01 08/02/20 07:01 Labs: Abnormal Lab Results - Last 24 Hours (Table) 08/02/20 08/02/20 Range/Units 07:01 07:01 WBC 10.53 H (4.50-10.00) X 10*3/uL Immature Gran # 0.11 H (0.00-0.04) X 10*3/uL Neutrophils # 9.16 H (1.80-7.70) X 10*3/uL Lymphocytes # 0.80 L (0.90-5.00) X 10*3/uL Monocytes # 0.18 L (0.20-1.00) X 10*3/uL Potassium 3.3 L (3.5-5.5) mmol/L BUN/Creatinine Ratio 35.00 H (12.00-20.00) Ratio Glucose 115 H (70-110) mg/dL Calcium 8.6 L (8.7-10.3) mg/dL Alkaline Phosphatase 145 H (41-126) U/L Lactate Dehydrogenase 593 H (120-246) U/L C-Reactive Protein 0.9 H (0.0-0.8) mg/dL Total Protein 5.4 L (6.2-8.2) g/dL Albumin 3.20 L (3.80-4.90) g/dL Albumin/Globulin Ratio 1.45 L (1.60-3.17) g/dL Assessment and Plan (1) COVID-19 Current Visit: Yes Status: Acute Code(s): U07.1 - COVID-19 SNOMED Code(s): 952597293 (2) Dehydration Current Visit: Yes Status: Acute Code(s): E86.0 - DEHYDRATION SNOMED Code(s): 41534718 (3) Urinary tract infection Current Visit: Yes Status: Acute Code(s): N39.0 - URINARY TRACT INFECTION, SITE NOT SPECIFIED SNOMED Code(s): 80571323 (4) Grief Current Visit: Yes Status: Acute Code(s): F43.21 - ADJUSTMENT DISORDER WITH DEPRESSED MOOD SNOMED Code(s): 636572694 Plan: Continue current regimen of treatment. Trajectory of recovery is somewhat plateauing Check CBC and CMP in the a.m.
--- NOTE | 2020-08-03 08:24 | P.PN ---
Subjective Principal diagnosis: The patient is here admitted for Covid pneumonia. 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 She is responding poorly at this point. Appreciate pulmonology input. The patient is much more alert and emotionally appropriate given grief reaction related to her 's . She is able to hold conversation appropriately but is still on high flow oxygen. No new voiding difficulties. We talked about what her life expectation should be now that her this past. Increase by mouth intake. Objective - Vital Signs Vital signs: Vital Signs Temp 98.5 F 08/03/20 05:23 Pulse 100 08/03/20 05:23 Resp 20 08/03/20 01:02 BP 121/76 08/03/20 05:23 Pulse Ox 90 L 08/03/20 05:23 Intake & Output 08/02/20 08/03/20 08/03/20 18:59 06:59 18:59 Weight 71 kg 72.5 kg Other: Voiding Method Diaper Diaper External Catheter External Catheter - Constitutional General appearance: Present: cooperative, mild distress - EENT Eyes: Absent: abnormal pupil - Neck Neck: Absent: lymphadenopathy - Respiratory Respiratory: bilateral: diminished - Cardiovascular Rhythm: regular Heart sounds: normal: S1, S2 Abnormal Heart Sounds: Absent: S3 Gallop, S4 Gallop - Gastrointestinal General gastrointestinal: Present: soft. Absent: tenderness - Integumentary Integumentary: Absent: cellulitis - Musculoskeletal Musculoskeletal: Present: generalized weakness - Labs CBC & Chem 7: 08/02/20 07:01 08/02/20 07:01 Labs: Abnormal Lab Results - Last 24 Hours (Table) 08/02/20 08/02/20 Range/Units 07:01 07:01 WBC 10.53 H (4.50-10.00) X 10*3/uL Immature Gran # 0.11 H (0.00-0.04) X 10*3/uL Neutrophils # 9.16 H (1.80-7.70) X 10*3/uL Lymphocytes # 0.80 L (0.90-5.00) X 10*3/uL Monocytes # 0.18 L (0.20-1.00) X 10*3/uL Potassium 3.3 L (3.5-5.5) mmol/L BUN/Creatinine Ratio 35.00 H (12.00-20.00) Ratio Glucose 115 H (70-110) mg/dL Calcium 8.6 L (8.7-10.3) mg/dL Alkaline Phosphatase 145 H (41-126) U/L Lactate Dehydrogenase 593 H (120-246) U/L C-Reactive Protein 0.9 H (0.0-0.8) mg/dL Total Protein 5.4 L (6.2-8.2) g/dL Albumin 3.20 L (3.80-4.90) g/dL Albumin/Globulin Ratio 1.45 L (1.60-3.17) g/dL Assessment and Plan (1) COVID-19 Current Visit: Yes Status: Acute Code(s): U07.1 - COVID-19 SNOMED Code(s): 315372671 (2) Dehydration Current Visit: Yes Status: Acute Code(s): E86.0 - DEHYDRATION SNOMED Code(s): 86896158 (3) Urinary tract infection Current Visit: Yes Status: Acute Code(s): N39.0 - URINARY TRACT INFECTION, SITE NOT SPECIFIED SNOMED Code(s): 78704757 (4) Grief Current Visit: Yes Status: Acute Code(s): F43.21 - ADJUSTMENT DISORDER WITH DEPRESSED MOOD SNOMED Code(s): 012511230 Plan: Continue current regimen of treatment. Trajectory of recovery is somewhat plateauing Check CBC and CMP in the a.m. Appreciate multiple consultants input. See orders otherwise
[2020-08-03] MEDS: FOLIC ACID 1 MG TAB PO SCH (09:36)
[2020-08-03] MEDS: POTASSIUM CHLORIDE ER 20 MEQ TAB.ER PO SCH (09:36)
[2020-08-03] MEDS: METOPROLOL TARTRATE 25 MG TAB PO SCH (09:36)
[2020-08-03] MEDS: PANTOPRAZOLE 40 MG TABLET PO SCH (09:36)
[2020-08-03] MEDS: CEVIMELINE 30 MG CAP PO SCH ×2 (09:36→20:28)
[2020-08-03] MEDS: GABAPENTIN 400 MG CAP PO SCH ×3 (09:36→20:28)
[2020-08-03] MEDS: ENOXAPARIN 30 MG/0.3 ML SYRINGE SQ SCH ×2 (09:37→20:29)
[2020-08-03] MEDS: VENLAFAXINE HCL ER 150 MG CAP PO SCH (09:37)
[2020-08-03] MEDS: DEXAMETHASONE SOD PHOSPHATE 10 MG/ML 1 ML VIAL IV SCH (09:37)
--- NOTE | 2020-08-03 17:36 | P.PN ---
Subjective Progress Note Date: 08/03/20 Principal diagnosis: COVID 19 84-year-old female patient presented to the hospital because of symptoms of weakness and shortness of breath. the patient had a positive COVID-19 test 6 days ago. She was also symptomatic. She days prior to that.She has been COVID- 19 positive and her from complications of COVID-19 infection approximately 4 days ago. The patient has been living alone. She has been quite debilitated and she is not getting around her house and she's been feeling very weak. No complaints of chest pain or abdominal pain or nausea or vomiting or headache or altered mentation. In the emergency, the patient was afebrile. Pulse ox was 92% on 4 L of oxygen by nasal cannula. She looked quite dehydrated and she was started on IV fluids. Blood work showed a white cell count of 8.9 and the patient some lymphopenia. Normal coagulation profile. D-dimer was 9.2. LFTs were abnormal with an AST of 55, ALT of 30, alk phos of 88, LDH was 1671, CRP was 6.7 and COVID-19 was positive. The patient's chest x-ray showed ground glass changes in the right lung and the CAT scan of the chest was also done that showed diffuse ground glass pulmonary infiltrates involving the right lung made in the lung bases addition to some limited change in the left lower lobe. The patient was started on Decadron 6 g IV every 24 hours.she was also started on Decadron 45 mg subcu every 12 hours. She is also on vitamin C, vitamin D and zinc 07/28/2020, the patient is being seen in follow-up. She is sitting in the emergency department and she has moved to a different room. She remains on Decadron 6 mg every 24 hours. She is also on Lovenox 45 mg subcu every 12 hours. Noted the patient was on oxygen at 4 L yesterday and sincethis morning at around 8:00, the patient's oxygen requirements have gradually increased. Currently she is on 15 L of oxygen by nasal cannula. She is feeling slightly more short of breath. She is also more lethargic compared to yesterday. Her LDH level is 04/16/2007 and a CRP level is at 7.6. Electrolytes are all within normal limits. D-dimer from yesterday was 9.24. She continues to have lymphopenia on her white cell count. She is currently on a combination of Decadron and Remdesivir and this is day 2 of treatment. Nevertheless, with increasing oxygen requirements, I think it's highly unlikely the patient is going to respond to Remdesivir and I'm considering starting this medication and often this patient Tocilizumab in conjunction with steroids. 07/29/2020, the patient is slightly worse. She is still on 15 L high flow nasal cannula. She did desaturate on few occasions that she had to be placed on 100% nonrebreather and she was taken off the nonrebreather again. She is on Decadron. She was on Remdesivir and due to her progression, the patient was switched to Tocilizumab 560 mg IV 1.In regards to her blood work, the LDH level is 04/16/2007 with a CRP level of 7.9. Rest of the electrodes are all within normal limits. Her d-dimer earlier was 9.24 and this needs to be repeated. Electrolytes are all within normal limits. She continues to have lymphopenia with a lymphocyte count of 0.8. She is afebrile. Diet is fair and she is eating approximately 50% of her food trays. On 07/30/2020 patient seen in follow-up on medical surgical floor. She is on 15 L high flow nasal cannula in addition to 100% nonrebreather, and her sats are between 91-96%, she is afebrile, hemodynamically stable, she does get short of breath with any exertion, but appears to be in no acute distress, patient did receive a dose of Toci on 07/28/2020, and her Remdesivir was discontinued early in regards to worsening hypoxemia. Today's labs have been reviewed, and today's d-dimer is 11.3, and inflammatory markers are not available for today, pro-Level Was Low at 0.34, Yesterday's Labs Showed Electrolytes and Renal Profile Daily Were Fairly Unremarkable, Patient Remains on IV Decadron 6 Mg Daily, and Lovenox 30 mg twice daily. On 07/31/2020 patient seen in follow-up on medical surgical floor, she still requires high flow oxygen, and she is currently on 15 L high flow nasal cannula and 100% nonrebreather mask, her pulse ox is 88%, she appears to be in no acute distress, she appears very weak, frail, today's is her 's and patient is unable to attend her 's . Afebrile, blood pressure stable. She denies any specific complaints, patient did receive a dose of Toci 07/28/2020, she remains on steroids, despite that her hypoxemia seems to be progressing. Today's labs have been reviewed showing white blood cell count is 7.8, hemoglobin is 14.3, d-dimer is 11.9, electrolytes and renal profile are within normal limits, LDH is down to 539, and CRP is down to 2. On 08/02/1999 the patient seen in follow-up on medical surgical floor. She continues on 15 L high flow and 100% nonrebreather mask, she states she's feeling a little better, she is resting in bed, she is weak, her oral intake is poor, but she denies any worsening dyspnea, and her work of breathing does not seem to be increased. Her pulse ox on 15 L of high flow cannula and NONREBREATHER IS 94%, SHE IS AFEBRILE, HEMODYNAMICALLY SHE STABLE, DENIES ANY CHEST DISCOMFORT. She denies any cough, denies any nausea vomiting or diarrhea, no recent chest x-ray, her d-dimer continues to trend up, and is currently up at 17.04, LDH is 583, and CRP is 1.1. Patient has completed a course of Remdesivir, she was also given Tocilizumab on 07/28/2020 On 08/02/2020 patient is seen in follow-up, still requiring high flow oxygen, with the patient is high flow and percent nonrebreather, her pulse ox is between 85-94%, patient is very weak, fatigued, her oral intake is very poor, the nurse reports that she has not been eating much, she is afebrile, although she denies worsening dyspnea she appears to be debilitated, and weak. Her d-dimer continues to trend up and is currently at 25.71, and CTA chest was completed last night showing no evidence of large central pulmonary embolism, and there was inadequate opacification to assess to subsegmental pulmonary arteries, converted extensive opacities the bilateral lungs consistent with history of COVID-19, lower extremity Dopplers were negative for DVT On 08/03/2020 patient is seen in follow-up. She continues to require 15 L high flow nasal cannula and 100% nonrebreather mask, and her pulse ox of 94%, however most the time her nonrebreather mask is not on her face Perez, she is resting in bed, she appears weak, but appears to be in no respiratory distress, she is afebrile, hemodynamically she is stable, denies any specific complaints, she states that she does not want NG tube inserted, and she is trying to increase her oral intake, and there is half- eaten ice cream at the bedside. No chest discomfort, no cough, no nausea, no new labs today Objective - Vital Signs Vital signs: Vital Signs Temp 98 F 08/03/20 17:15 Pulse 92 08/03/20 17:15 Resp 16 08/03/20 17:15 BP 107/68 08/03/20 17:15 Pulse Ox 94 L 08/03/20 17:15 Intake & Output 08/02/20 08/03/20 08/03/20 18:59 06:59 18:59 Intake Total 228 Balance 228 Weight 71 kg 72.5 kg 72.5 kg Intake: Oral 228 Other: Voiding Method Diaper Diaper Incontinent External Catheter External Catheter - Exam GENERAL EXAM: Alert, very pleasant, white female, on 15 L per high flow nasal cannula and 100% nonrebreather mask HEAD: Normocephalic/atraumatic. EYES: Normal reaction of pupils, equal size. Conjunctiva pink, sclera white. NOSE: Clear with pink turbinates. THROAT: No erythema or exudates. NECK: No masses, no JVD, no thyroid enlargement, no adenopathy. CHEST: No chest wall deformity. Symmetrical expansion. LUNGS: Equal air entry with no crackles, wheeze, rhonchi or dullness. CVS: Regular rate and rhythm, normal S1 and S2, no gallops, no murmurs, no rubs ABDOMEN: Soft, nontender. No hepatosplenomegaly, normal bowel sounds, no guar ding or rigidity. EXTREMITIES: No clubbing, no edema, no cyanosis, 2+ pulses and upper and lower extremities. MUSCULOSKELETAL: Muscle strength and tone normal. SPINE: No scoliosis or deformity SKIN: No rashes CENTRAL NERVOUS SYSTEM: Alert and oriented -3. No focal deficits, tone is normal in all 4 extremities. PSYCHIATRIC: Alert and oriented -3. Appropriate affect. Intact judgment and insight. - Labs CBC & Chem 7: 08/02/20 07:01 08/02/20 07:01 Assessment and Plan Plan: Assessment: #1. acute COVID-19 related pneumonia with extensive groundglass changes involving the right lung mainly in the right lower lobe. D-dimer is elevated. Patient has been symptomatic for at least 6-7 days. She says possible COVID-19 approximately 6 days ago. She is presented with worsening shortness of breath and generalized weakness. She initially was on 3 L of oxygen by nasal cannula and her oxygen requirements progressively went up and currently is on a liters. Based on that, I kept on Decadron, discontinue the Remdesivir gave her Tocilizumab , 560 mg IV 1. On today's evaluation, the patient remains on 15 L of oxygen by nasal cannula. No significant change in her condition. Oxygenation remains borderline with the patient is still requiring on and off facemask to supplemented oxygen especially when she desaturates. #2. acute hypoxic respiratory failure currently on 15 L by nasal cannula #3. known history of coronary artery disease with previous stenting of the LAD, currently inactive in stable #4. history of Sjogren's disease/lupus #5. remote history of DVT of the lower extremity #6. osteoarthritis #7. hypertension #8. hypothyroidism #9. history of TIA without any residual deficits Plan: Continue steroids, continue current dose Lovenox, Still remains on high flow oxygen and on her percent nonrebreather, but denies worsening dyspnea or cough Appears weak, she is trying to increase her oral intake, she does not want NG tube inserted We'll obtain follow-up labs and inflammatory markers tomorrow Overall prognosis is poor and guarded Continue supportive treatment I performed a history & physical examination of the patient and discussed their management with my nurse practitioner, Phyllis Zaidi. I reviewed the nurse practitioner's note and agree with the documented findings and plan of care. Lung sounds are positive for diffuse crackles. The findings and the impression was discussed with the patient. I attest to the documentation by the nurse practitioner. Time with Patient: Less than 30
[2020-08-03] MEDS: ATORVASTATIN 20 MG TAB PO SCH (20:29)
[2020-08-04] MEDS: LEVOTHYROXINE 112 MCG TAB PO SCH (05:40)
[2020-08-04 08:28] LABS: ALT 24 U/L (4-34); AST 40 U/L (14-36); African American GFR (CKD) >90 (>60 ml/min/1.73 sqM); Albumin 3.1 g/dL (3.5-5.0); Alkaline Phosphatase 147 U/L (38-126); Anion Gap 7 mmol/L; Blood Urea Nitrogen 25 mg/dL (7-17); Calcium 8.8 mg/dL (8.4-10.2); Carbon Dioxide 26 mmol/L (22-30); Chloride 104 mmol/L (98-107); Glucose 92 mg/dL (74-99); Non-African American GFR(CKD) 87 (>60 ml/min/1.73 sqM); Potassium 3.4 mmol/L (3.5-5.1); Sodium 137 mmol/L (137-145); Total Bilirubin 0.8 mg/dL (0.2-1.3); Total Protein 6.1 g/dL (6.3-8.2)
[2020-08-04] MEDS: GABAPENTIN 400 MG CAP PO SCH ×3 (08:35→20:02)
[2020-08-04] MEDS: CEVIMELINE 30 MG CAP PO SCH ×2 (08:35→20:01)
[2020-08-04] MEDS: VENLAFAXINE HCL ER 150 MG CAP PO SCH (08:35)
[2020-08-04] MEDS: FOLIC ACID 1 MG TAB PO SCH (08:35)
[2020-08-04] MEDS: METOPROLOL TARTRATE 25 MG TAB PO SCH (08:35)
[2020-08-04] MEDS: PANTOPRAZOLE 40 MG TABLET PO SCH (08:35)
[2020-08-04] MEDS: ENOXAPARIN 30 MG/0.3 ML SYRINGE SQ SCH ×2 (08:36→20:01)
[2020-08-04] MEDS: DEXAMETHASONE SOD PHOSPHATE 10 MG/ML 1 ML VIAL IV SCH (08:36)
[2020-08-04] MEDS: POTASSIUM CHLORIDE ER 20 MEQ TAB.ER PO SCH (08:36)
[2020-08-04 12:42] LABS: HCT 43.1 % (37.2-46.3); HGB 14.2 g/dL (12.0-15.0); MCH 32.1 pg (27.0-32.0); MCHC 32.9 g/dL (32.0-37.0); MCV 97.3 fL (80.0-97.0); Mean Platelet Volume 11.3 fL (9.5-12.2); Platelet Count 137 X 10*3/uL (140-440); RBC 4.43 X 10*6/uL (4.10-5.20); WBC 9.67 X 10*3/uL (4.50-10.00)
--- NOTE | 2020-08-04 16:33 | P.PN ---
Subjective Progress Note Date: 08/04/20 Principal diagnosis: COVID 19 84-year-old female patient presented to the hospital because of symptoms of weakness and shortness of breath. the patient had a positive COVID-19 test 6 days ago. She was also symptomatic. She days prior to that.She has been COVID- 19 positive and her from complications of COVID-19 infection approximately 4 days ago. The patient has been living alone. She has been quite debilitated and she is not getting around her house and she's been feeling very weak. No complaints of chest pain or abdominal pain or nausea or vomiting or headache or altered mentation. In the emergency, the patient was afebrile. Pulse ox was 92% on 4 L of oxygen by nasal cannula. She looked quite dehydrated and she was started on IV fluids. Blood work showed a white cell count of 8.9 and the patient some lymphopenia. Normal coagulation profile. D-dimer was 9.2. LFTs were abnormal with an AST of 55, ALT of 30, alk phos of 88, LDH was 1671, CRP was 6.7 and COVID-19 was positive. The patient's chest x-ray showed ground glass changes in the right lung and the CAT scan of the chest was also done that showed diffuse ground glass pulmonary infiltrates involving the right lung made in the lung bases addition to some limited change in the left lower lobe. The patient was started on Decadron 6 g IV every 24 hours.she was also started on Decadron 45 mg subcu every 12 hours. She is also on vitamin C, vitamin D and zinc 07/28/2020, the patient is being seen in follow-up. She is sitting in the emergency department and she has moved to a different room. She remains on Decadron 6 mg every 24 hours. She is also on Lovenox 45 mg subcu every 12 hours. Noted the patient was on oxygen at 4 L yesterday and sincethis morning at around 8:00, the patient's oxygen requirements have gradually increased. Currently she is on 15 L of oxygen by nasal cannula. She is feeling slightly more short of breath. She is also more lethargic compared to yesterday. Her LDH level is 04/16/2007 and a CRP level is at 7.6. Electrolytes are all within normal limits. D-dimer from yesterday was 9.24. She continues to have lymphopenia on her white cell count. She is currently on a combination of Decadron and Remdesivir and this is day 2 of treatment. Nevertheless, with increasing oxygen requirements, I think it's highly unlikely the patient is going to respond to Remdesivir and I'm considering starting this medication and often this patient Tocilizumab in conjunction with steroids. 07/29/2020, the patient is slightly worse. She is still on 15 L high flow nasal cannula. She did desaturate on few occasions that she had to be placed on 100% nonrebreather and she was taken off the nonrebreather again. She is on Decadron. She was on Remdesivir and due to her progression, the patient was switched to Tocilizumab 560 mg IV 1.In regards to her blood work, the LDH level is 04/16/2007 with a CRP level of 7.9. Rest of the electrodes are all within normal limits. Her d-dimer earlier was 9.24 and this needs to be repeated. Electrolytes are all within normal limits. She continues to have lymphopenia with a lymphocyte count of 0.8. She is afebrile. Diet is fair and she is eating approximately 50% of her food trays. On 07/30/2020 patient seen in follow-up on medical surgical floor. She is on 15 L high flow nasal cannula in addition to 100% nonrebreather, and her sats are between 91-96%, she is afebrile, hemodynamically stable, she does get short of breath with any exertion, but appears to be in no acute distress, patient did receive a dose of Toci on 07/28/2020, and her Remdesivir was discontinued early in regards to worsening hypoxemia. Today's labs have been reviewed, and today's d-dimer is 11.3, and inflammatory markers are not available for today, pro-Level Was Low at 0.34, Yesterday's Labs Showed Electrolytes and Renal Profile Daily Were Fairly Unremarkable, Patient Remains on IV Decadron 6 Mg Daily, and Lovenox 30 mg twice daily. On 07/31/2020 patient seen in follow-up on medical surgical floor, she still requires high flow oxygen, and she is currently on 15 L high flow nasal cannula and 100% nonrebreather mask, her pulse ox is 88%, she appears to be in no acute distress, she appears very weak, frail, today's is her 's and patient is unable to attend her 's . Afebrile, blood pressure stable. She denies any specific complaints, patient did receive a dose of Toci 07/28/2020, she remains on steroids, despite that her hypoxemia seems to be progressing. Today's labs have been reviewed showing white blood cell count is 7.8, hemoglobin is 14.3, d-dimer is 11.9, electrolytes and renal profile are within normal limits, LDH is down to 539, and CRP is down to 2. On 08/02/1999 the patient seen in follow-up on medical surgical floor. She continues on 15 L high flow and 100% nonrebreather mask, she states she's feeling a little better, she is resting in bed, she is weak, her oral intake is poor, but she denies any worsening dyspnea, and her work of breathing does not seem to be increased. Her pulse ox on 15 L of high flow cannula and NONREBREATHER IS 94%, SHE IS AFEBRILE, HEMODYNAMICALLY SHE STABLE, DENIES ANY CHEST DISCOMFORT. She denies any cough, denies any nausea vomiting or diarrhea, no recent chest x-ray, her d-dimer continues to trend up, and is currently up at 17.04, LDH is 583, and CRP is 1.1. Patient has completed a course of Remdesivir, she was also given Tocilizumab on 07/28/2020 On 08/02/2020 patient is seen in follow-up, still requiring high flow oxygen, with the patient is high flow and percent nonrebreather, her pulse ox is between 85-94%, patient is very weak, fatigued, her oral intake is very poor, the nurse reports that she has not been eating much, she is afebrile, although she denies worsening dyspnea she appears to be debilitated, and weak. Her d-dimer continues to trend up and is currently at 25.71, and CTA chest was completed last night showing no evidence of large central pulmonary embolism, and there was inadequate opacification to assess to subsegmental pulmonary arteries, converted extensive opacities the bilateral lungs consistent with history of COVID-19, lower extremity Dopplers were negative for DVT On 08/03/2020 patient is seen in follow-up. She continues to require 15 L high flow nasal cannula and 100% nonrebreather mask, and her pulse ox of 94%, however most the time her nonrebreather mask is not on her face Perez, she is resting in bed, she appears weak, but appears to be in no respiratory distress, she is afebrile, hemodynamically she is stable, denies any specific complaints, she states that she does not want NG tube inserted, and she is trying to increase her oral intake, and there is half- eaten ice cream at the bedside. No chest discomfort, no cough, no nausea, no new labs today On 08/04/2020 patient seen in follow-up on medical surgical floor, she is currently on 15 L high flow, and her percent nonrebreather, and her pulse oximetry between 90-94%, today she is up in the chair, looks comfortable, she is awake and alert, responds to questions appropriately, denies any worsening dysp kiko, still requiring high flow oxygen, no fever or chills, no headaches, no lightheadedness or dizziness no abdominal pain no nausea vomiting or diarrhea, she refused NG tube and she promised to increase her oral intake, she is tolerating oral diet Objective - Vital Signs Vital signs: Vital Signs Temp 97.8 F 08/04/20 13:30 Pulse 108 H 08/04/20 13:30 Resp 20 08/04/20 13:30 BP 100/68 08/04/20 13:30 Pulse Ox 95 08/04/20 13:30 Intake & Output 08/03/20 08/04/20 08/04/20 18:59 06:59 18:59 Intake Total 338 Balance 338 Weight 72.5 kg 71.5 kg Intake: Oral 338 Other: Voiding Method Incontinent Diaper Incontinent # Voids 1 - Exam GENERAL EXAM: Alert, very pleasant, white female, on 15 L per high flow nasal cannula and 100% nonrebreather mask HEAD: Normocephalic/atraumatic. EYES: Normal reaction of pupils, equal size. Conjunctiva pink, sclera white. NOSE: Clear with pink turbinates. THROAT: No erythema or exudates. NECK: No masses, no JVD, no thyroid enlargement, no adenopathy. CHEST: No chest wall deformity. Symmetrical expansion. LUNGS: Equal air entry with no crackles, wheeze, rhonchi or dullness. CVS: Regular rate and rhythm, normal S1 and S2, no gallops, no murmurs, no rubs ABDOMEN: Soft, nontender. No hepatosplenomegaly, normal bowel sounds, no guarding or rigidity. EXTREMITIES: No clubbing, no edema, no cyanosis, 2+ pulses and upper and lower extremities. MUSCULOSKELETAL: Muscle strength and tone normal. SPINE: No scoliosis or deformity SKIN: No rashes CENTRAL NERVOUS SYSTEM: Alert and oriented -3. No focal deficits, tone is normal in all 4 extremities. PSYCHIATRIC: Alert and oriented -3. Appropriate affect. Intact judgment and insight. - Labs CBC & Chem 7: 08/04/20 07:42 08/04/20 07:42 Labs: Abnormal Lab Results - Last 24 Hours (Table) 08/04/20 08/04/20 Range/Units 07:42 07:42 MCV 97.3 H (80.0-97.0) fL MCH 32.1 H (27.0-32.0) pg Plt Count 137 L (140-440) X 10*3/uL Potassium 3.4 L (3.5-5.1) mmol/L BUN 25 H (7-17) mg/dL AST 40 H (14-36) U/L Alkaline Phosphatase 147 H (38-126) U/L Total Protein 6.1 L (6.3-8.2) g/dL Albumin 3.1 L (3.5-5.0) g/dL Assessment and Plan Plan: Assessment: #1. acute COVID-19 related pneumonia with extensive groundglass changes involving the right lung mainly in the right lower lobe. D-dimer is elevated. Patient has been symptomatic for at least 6-7 days. She says possible COVID-19 approximately 6 days ago. She is presented with worsening shortness of breath and generalized weakness. She initially was on 3 L of oxygen by nasal cannula and her oxygen requirements progressively went up and currently is on a liters. Based on that, I kept on Decadron, discontinue the Remdesivir gave her Tocilizumab , 560 mg IV 1. On today's evaluation, the patient remains on 15 L of oxygen by nasal cannula. No significant change in her condition. Oxygenation remains borderline with the patient is still requiring on and off facemask to supplemented oxygen especially when she desaturates. #2. acute hypoxic respiratory failure currently on 15 L by nasal cannula #3. known history of coronary artery disease with previous stenting of the LAD, currently inactive in stable #4. history of Sjogren's disease/lupus #5. remote history of DVT of the lower extremity #6. osteoarthritis #7. hypertension #8. hypothyroidism #9. history of TIA without any residual deficits Plan: Continue weaning FiO2, is still requiring high flow oxygen at 15 L, and 100% nonrebreather Does not appear to be having increased work of breathing She sits up in the chair today, looks better and stronger Continue steroids, continue current dose Lovenox, Continue encouraging oral intake we will hold off on NG tube We'll obtain follow-up labs and inflammatory markers tomorrow Overall prognosis is poor and guarded Continue supportive treatment I performed a history & physical examination of the patient and discussed their management with my nurse practitioner, Phyllis Zaidi. I reviewed the nurse practitioner's note and agree with the documented findings and plan of care. Lung sounds are positive for diffuse crackles. The findings and the impression was discussed with the patient. I attest to the documentation by the nurse practitioner. Time with Patient: Less than 30
[2020-08-04] MEDS ORDERED: NON FORMULARY DRUG (Omeprazole [Omeprazole] 20 MG Capsule.Dr) PO SCH (17:45)
[2020-08-04] MEDS: CHOLECALCIFEROL 25 MCG (1000 IU) TABLET PO SCH (20:01)
[2020-08-04] MEDS: ZINC SULFATE 220 MG CAP PO SCH (20:01)
[2020-08-04] MEDS: ASCORBIC ACID 500 MG TAB PO SCH (20:01)
[2020-08-04] MEDS: ATORVASTATIN 20 MG TAB PO SCH (20:01)
--- NOTE | 2020-08-04 21:46 | PN ---
PROGRESS NOTE DATE OF SERVICE: 08/04/2020 I am covering for Dr. Rios. This 84-year-old woman was admitted with acute COVID-19 infection, dehydration, as well as Covid-19 pneumonia is being closely monitored. A chest CTA which was reviewed personally by me showed extensive bilateral infiltrates suggestive of Covid-19 pneumonia, right more than the left. The patient is also seen by multiple consults including Dr. High. Past medical history reviewed. REVIEW OF SYSTEMS: Review of systems noted. CURRENT MEDICATIONS: Reviewed and include: Tylenol, [place], Lipitor, Rocaltrol, Voltaren, Lovenox. Doses reviewed. PHYSICAL EXAMINATION: Patient is alert and oriented x1. Pulse 89. Blood pressure 134/70, respirations 19, temperature 97.4, pulse ox 94% on 15 L. HEENT : Conjunctivae normal. NECK: No JVD. CARDIOVASCULAR: S1, S2 muffled. RESPIRATORY: Breath sounds diminished in the bases. A few scattered rhonchi and crackles. ABDOMEN: Soft, obese, nontender. LEGS are no edema. No swelling. LAB STUDIES: WBC 9.7, hemoglobin 14.2, sodium 130, potassium 3.4. ASSESSMENT: 1. Acute COVID-19 infection as well as Covid-19 interstitial pneumonia, right more the left with acute hypoxic respiratory failure. 2. Dehydration. 3. Status post Remdesivir and tocilizumab. 4. Acute urinary tract infection. 5. Acute grief reaction. 6. Hypokalemia. 7. Increased WBC. 8. Elevated inflammatory markers of COVID-19. 9. Hypoalbuminemia with mild protein calorie malnutrition. 10.History of cerebrovascular accident, transient ischemic attack. 11.History of deep vein thrombosis. 12.History of degenerative joint disease. 13.History of Sjogren's. 14.History of lupus. 15.History of cholecystectomy. RECOMMENDATIONS AND DISCUSSION: I recommend to continue current medications, management and symptomatic treatment. Otherwise at this time I recommend continue with current treatment including bronchodilators, Lovenox. I would recommend add zinc to the current regimen and continue to monitor. Guarded prognosis. Further recommendations to follow. MMODL / IJN: [id number] /
[2020-08-05] MEDS: LEVOTHYROXINE 112 MCG TAB PO SCH (06:14)
[2020-08-05] MEDS: POTASSIUM CHLORIDE ER 20 MEQ TAB.ER PO SCH (09:23)
[2020-08-05] MEDS: METOPROLOL TARTRATE 25 MG TAB PO SCH (09:24)
[2020-08-05] MEDS: GABAPENTIN 400 MG CAP PO SCH ×3 (09:34→21:06)
[2020-08-05] MEDS: PANTOPRAZOLE 40 MG TABLET PO SCH (09:34)
[2020-08-05] MEDS: VENLAFAXINE HCL ER 150 MG CAP PO SCH (09:34)
[2020-08-05] MEDS: CHOLECALCIFEROL 25 MCG (1000 IU) TABLET PO SCH (09:34)
[2020-08-05] MEDS: ASCORBIC ACID 500 MG TAB PO SCH (09:34)
[2020-08-05] MEDS: ZINC SULFATE 220 MG CAP PO SCH (09:34)
[2020-08-05] MEDS: CEVIMELINE 30 MG CAP PO SCH ×2 (09:35→21:06)
[2020-08-05] MEDS: FOLIC ACID 1 MG TAB PO SCH (09:35)
[2020-08-05] MEDS: ENOXAPARIN 30 MG/0.3 ML SYRINGE SQ SCH ×2 (09:35→21:06)
[2020-08-05] MEDS: DEXAMETHASONE SOD PHOSPHATE 10 MG/ML 1 ML VIAL IV SCH (09:38)
[2020-08-05 11:11] LABS: Basophils # (A) 0.02 X 10*3/uL (0.00-0.10); Basophils % (A) 0.2 %; Eosinophils # (A) 0.21 X 10*3/uL (0.04-0.35); Eosinophils % (A) 2.4 %; HCT 43.1 % (37.2-46.3); HGB 13.9 g/dL (12.0-15.0); Lymphocytes # (A) 1.49 X 10*3/uL (0.90-5.00); Lymphocytes % (A) 16.8 %; MCH 31.8 pg (27.0-32.0); MCHC 32.3 g/dL (32.0-37.0); MCV 98.6 fL (80.0-97.0); Mean Platelet Volume 11.6 fL (9.5-12.2); Monocytes # (A) 0.45 X 10*3/uL (0.20-1.00); Monocytes % (A) 5.1 %; Neutrophils # (A) 6.66 X 10*3/uL (1.80-7.70); Neutrophils % (A) 74.8 %; Platelet Count 122 X 10*3/uL (140-440); RBC 4.37 X 10*6/uL (4.10-5.20); RDW 14.2 % (11.5-14.5); WBC 8.89 X 10*3/uL (4.50-10.00)
[2020-08-05 11:26] LABS: Albumin 3.3 g/dL (3.80-4.90); Albumin/Globulin Ratio 1.32 (1.60-3.17); Anion Gap 9.8 mmol/L (4.00-12.00); BUN/Creat Ratio 41.67 Ratio (12.00-20.00); Calcium 8.8 mg/dL (8.7-10.3); Carbon Dioxide 27.2 mmol/L (21.6-31.8); Globulin 2.5 g/dL (1.6-3.3); Non-African American GFR(CKD) 83.7 (60.0-200.0); Potassium 3.4 mmol/L (3.5-5.5); Total Bilirubin 0.7 mg/dL (0.3-1.2); Total Protein 5.8 g/dL (6.2-8.2)
--- NOTE | 2020-08-05 14:21 | XR ---
EXAMINATION TYPE: XR chest 1V DATE OF EXAM: 08/05/2020 COMPARISON: 07/28/2020 HISTORY: Short of breath TECHNIQUE: FINDINGS: There is diffuse pulmonary interstitial moderate infiltrate. There is some coalescent densi ty left lung base. There is no mediastinal adenopathy. There are no hilar masses. IMPRESSION: There is increased pulmonary interstitial pneumonia compared to recent exam. No pleural f luid seen to suggest heart failure.
[2020-08-05 14:35] LABS: Basophils % (A) 0 %; Eosinophils # (A) 0.3 k/uL (0-0.7); Eosinophils % (A) 3 %; HCT 44.6 % (34.0-46.0); HGB 14.3 gm/dL (11.4-16.0); Lymphocytes # (A) 0.5 k/uL (1.0-4.8); Lymphocytes % (A) 4 %; MCH 31.2 pg (25.0-35.0); MCV 97.6 fL (80.0-100.0); Mean Platelet Volume 8.4; Monocytes # (A) 0.1 k/uL (0-1.0); Monocytes % (A) 1 %; Neutrophils # (A) 12.2 k/uL (1.3-7.7); Neutrophils % (A) 92 %; Platelet Count 113 k/uL (150-450); RBC 4.57 m/uL (3.80-5.40); RDW 14.2 % (11.5-15.5); WBC 13.4 k/uL (3.8-10.6)
[2020-08-05 14:46] LABS: INR 1.2 (<1.2)
[2020-08-05] MEDS ORDERED: SODIUM CHLORIDE 0.9% 500 ML 500 ML IV ONE (15:10)
[2020-08-05 15:32] LABS: AST 40 U/L (14-36); African American GFR (CKD) >90 (>60 ml/min/1.73 sqM); Albumin 3.1 g/dL (3.5-5.0); Alkaline Phosphatase 140 U/L (38-126); Anion Gap 7 mmol/L; Blood Urea Nitrogen 24 mg/dL (7-17); Calcium 8.6 mg/dL (8.4-10.2); Carbon Dioxide 27 mmol/L (22-30); Chloride 103 mmol/L (98-107); Glucose 270 mg/dL (74-99); Non-African American GFR(CKD) 83 (>60 ml/min/1.73 sqM); Potassium 3.7 mmol/L (3.5-5.1); Sodium 137 mmol/L (137-145); Total Bilirubin 0.6 mg/dL (0.2-1.3); Total Protein 6.1 g/dL (6.3-8.2)
--- NOTE | 2020-08-05 15:38 | P.PN ---
Subjective Progress Note Date: 08/05/20 Principal diagnosis: COVID-19 pneumonia 84-year-old female patient presented to the hospital because of symptoms of weakness and shortness of breath. the patient had a positive COVID-19 test 6 days ago. She was also symptomatic. She days prior to that.She has been COVID- 19 positive and her from complications of COVID-19 infection approximately 4 days ago. The patient has been living alone. She has been quite debilitated and she is not getting around her house and she's been feeling very weak. No complaints of chest pain or abdominal pain or nausea or vomiting or headache or altered mentation. In the emergency, the patient was afebrile. Pulse ox was 92% on 4 L of oxygen by nasal cannula. She looked quite dehydrated and she was started on IV fluids. Blood work showed a white cell count of 8.9 and the patient some lymphopenia. Normal coagulation profile. D-dimer was 9.2. LFTs were abnormal with an AST of 55, ALT of 30, alk phos of 88, LDH was 1671, CRP was 6.7 and COVID-19 was positive. The patient's chest x-ray showed ground glass changes in the right lung and the CAT scan of the chest was also done that showed diffuse ground glass pulmonary infiltrates involving the right lung made in the lung bases addition to some limited change in the left lower lobe. The patient was started on Decadron 6 g IV every 24 hours.she was also started on Decadron 45 mg subcu every 12 hours. She is also on vitamin C, vitamin D and zinc 07/28/2020, the patient is being seen in follow-up. She is sitting in the emergency department and she has moved to a different room. She remains on Decadron 6 mg every 24 hours. She is also on Lovenox 45 mg subcu every 12 hours. Noted the patient was on oxygen at 4 L yesterday and sincethis morning at around 8:00, the patient's oxygen requirements have gradually increased. Currently she is on 15 L of oxygen by nasal cannula. She is feeling slightly more short of breath. She is also more lethargic compared to yesterday. Her LDH level is 04/16/2007 and a CRP level is at 7.6. Electrolytes are all within normal limits. D-dimer from yesterday was 9.24. She continues to have lymphopenia on her white cell count. She is currently on a combination of Decadron and Remdesivir and this is day 2 of treatment. Nevertheless, with increasing oxygen requirements, I think it's highly unlikely the patient is going to respond to Remdesivir and I'm considering starting this medication and often this patient Tocilizumab in conjunction with steroids. 07/29/2020, the patient is slightly worse. She is still on 15 L high flow nasal cannula. She did desaturate on few occasions that she had to be placed on 100% nonrebreather and she was taken off the nonrebreather again. She is on Decadron. She was on Remdesivir and due to her progression, the patient was switched to Tocilizumab 560 mg IV 1.In regards to her blood work, the LDH level is 04/16/2007 with a CRP level of 7.9. Rest of the electrodes are all within normal limits. Her d-dimer earlier was 9.24 and this needs to be repeated. Electrolytes are all within normal limits. She continues to have lymphopenia with a lymphocyte count of 0.8. She is afebrile. Diet is fair and she is eating approximately 50% of her food trays. On 07/30/2020 patient seen in follow-up on medical surgical floor. She is on 15 L high flow nasal cannula in addition to 100% nonrebreather, and her sats are between 91-96%, she is afebrile, hemodynamically stable, she does get short of breath with any exertion, but appears to be in no acute distress, patient did receive a dose of Toci on 07/28/2020, and her Remdesivir was discontinued early in regards to worsening hypoxemia. Today's labs have been reviewed, and today's d-dimer is 11.3, and inflammatory markers are not available for today, pro-Level Was Low at 0.34, Yesterday's Labs Showed Electrolytes and Renal Profile Daily Were Fairly Unremarkable, Patient Remains on IV Decadron 6 Mg Daily, and Lovenox 30 mg twice daily. On 07/31/2020 patient seen in follow-up on medical surgical floor, she still requires high flow oxygen, and she is currently on 15 L high flow nasal cannula and 100% nonrebreather mask, her pulse ox is 88%, she appears to be in no acute distress, she appears very weak, frail, today's is her 's and patient is unable to attend her 's . Afebrile, blood pressure stable. She denies any specific complaints, patient did receive a dose of Toci 07/28/2020, she remains on steroids, despite that her hypoxemia seems to be progressing. Today's labs have been reviewed showing white blood cell count is 7.8, hemoglobin is 14.3, d-dimer is 11.9, electrolytes and renal profile are within normal limits, LDH is down to 539, and CRP is down to 2. On 08/02/1999 the patient seen in follow-up on medical surgical floor. She continues on 15 L high flow and 100% nonrebreather mask, she states she's feeling a little better, she is resting in bed, she is weak, her oral intake is poor, but she denies any worsening dyspnea, and her work of breathing does not seem to be increased. Her pulse ox on 15 L of high flow cannula and NONREBREATHER IS 94%, SHE IS AFEBRILE, HEMODYNAMICALLY SHE STABLE, DENIES ANY CHEST DISCOMFORT. She denies any cough, denies any nausea vomiting or diarrhea, no recent chest x-ray, her d-dimer continues to trend up, and is currently up at 17.04, LDH is 583, and CRP is 1.1. Patient has completed a course of Remdesivir, she was also given Tocilizumab on 07/28/2020 On 08/02/2020 patient is seen in follow-up, still requiring high flow oxygen, with the patient is high flow and percent nonrebreather, her pulse ox is between 85-94%, patient is very weak, fatigued, her oral intake is very poor, the nurse reports that she has not been eating much, she is afebrile, although she denies worsening dyspnea she appears to be debilitated, and weak. Her d-dimer continues to trend up and is currently at 25.71, and CTA chest was completed last night showing no evidence of large central pulmonary embolism, and there was inadequate opacification to assess to subsegmental pulmonary arteries, converted extensive opacities the bilateral lungs consistent with history of COVID-19, lower extremity Dopplers were negative for DVT On 08/03/2020 patient is seen in follow-up. She continues to require 15 L high flow nasal cannula and 100% nonrebreather mask, and her pulse ox of 94%, however most the time her nonrebreather mask is not on her face Perez, she is resting in bed, she appears weak, but appears to be in no respiratory distress, she is afebrile, hemodynamically she is stable, denies any specific complaints, she states that she does not want NG tube inserted, and she is trying to increase her oral intake, and there is half- eaten ice cream at the bedside. No chest discomfort, no cough, no nausea, no new labs today On 08/04/2020 patient seen in follow-up on medical surgical floor, she is currently on 15 L high flow, and her percent nonrebreather, and her pulse oximetry between 90-94%, today she is up in the chair, looks comfortable, she is awake and alert, responds to questions appropriately, denies any worsening dyspnea, still requiring high flow oxygen, no fever or chills, no headaches, no lightheadedness or dizziness no abdominal pain no nausea vomiting or diarrhea, she refused NG tube and she promised to increase her oral intake, she is tolerating oral diet The patient is seen today 08/05/2020 follow-up on the regular medical floor. He is currently resting fairly comfortably in bed. She is doing about the same. She is still requiring 15 liters high flow nasal cannula plus and nonrebreather mask to maintain O2 saturation the high 80s low 90s. Once off even briefly she desaturates into the 70s. Chest x-ray continues to show diffuse pulmonary interstitial moderate infiltrates. White count 13.4. Hemoglobin 14.3. Platelets 113. Lymphocytes 0.5. INR 1.2. Sodium 142. Potassium 3.4. Creatinine 0.6. AST 30. ALT 24. Continued on vitamin supplements, Lovenox, Decadron. Objective - Vital Signs Vital signs: Vital Signs Temp 98.1 F 08/05/20 14:04 Pulse 137 H 08/05/20 14:32 Resp 22 08/05/20 14:04 BP 105/64 08/05/20 14:32 Pulse Ox 95 08/05/20 14:04 Intake & Output 08/04/20 08/05/20 08/05/20 18:59 06:59 18:59 Output Total 275 300 Balance -275 -300 Weight 72.5 kg Output: Urine 275 300 Other: Voiding Method Diaper Incontinent - Exam GENERAL EXAM: Alert, very pleasant, white female, on 15 L per high flow nasal cannula and 100% nonrebreather mask HEAD: Normocephalic/atraumatic. EYES: Normal reaction of pupils, equal size. Conjunctiva pink, sclera white. NOSE: Clear with pink turbinates. THROAT: No erythema or exudates. NECK: No masses, no JVD, no thyroid enlargement, no adenopathy. CHEST: No chest wall deformity. Symmetrical expansion. LUNGS: Equal air entry with crackles in the bilateral posterior bases CVS: Regular rate and rhythm, normal S1 and S2, no gallops, no murmurs, no rubs ABDOMEN: Soft, nontender. No hepatosplenomegaly, normal bowel sounds, no guarding or rigidity. EXTREMITIES: No clubbing, no edema, no cyanosis, 2+ pulses and upper and lower extremities. MUSCULOSKELETAL: Muscle strength and tone normal. SPINE: No scoliosis or deformity SKIN: No rashes CENTRAL NERVOUS SYSTEM: Alert and oriented -3. No focal deficits, tone is normal in all 4 extremities. PSYCHIATRIC: Alert and oriented -3. Appropriate affect. Intact judgment and insight. - Labs CBC & Chem 7: 08/05/20 14:27 08/05/20 06:48 Labs: Abnormal Lab Results - Last 24 Hours (Table) 08/05/20 08/05/20 08/05/20 Range/Units 06:48 06:48 14:17 WBC (3.8-10.6) k/uL MCV 98.6 H (80.0-97.0) fL Plt Count 122 L (140-440) X 10*3/uL Plt Count Comment DECREASED A Immature Gran # 0.06 H (0.00-0.04) X 10*3/uL Neutrophils # (1.3-7.7) k/uL Lymphocytes # (1.0-4.8) k/uL INR (<1.2) Potassium 3.4 L (3.5-5.5) mmol/L BUN/Creatinine Ratio 41.67 H (12.00-20.00) Ratio Plasma Lactic Acid Man 4.0 H* (0.7-2.0) mmol/L Alkaline Phosphatase 148 H (41-126) U/L Troponin I (0.000-0.034) ng/mL Total Protein 5.8 L (6.2-8.2) g/dL Albumin 3.30 L (3.80-4.90) g/dL Albumin/Globulin Ratio 1.32 L (1.60-3.17) g/dL 08/05/20 08/05/20 08/05/20 Range/Units 14:17 14:27 14:27 WBC 13.4 H (3.8-10.6) k/uL MCV (80.0-97.0) fL Plt Count 113 L (140-440) X 10*3/uL Plt Count Comment Immature Gran # (0.00-0.04) X 10*3/uL Neutrophils # 12.2 H (1.3-7.7) k/uL Lymphocytes # 0.5 L (1.0-4.8) k/uL INR 1.2 H (<1.2) Potassium (3.5-5.5) mmol/L BUN/Creatinine Ratio (12.00-20.00) Ratio Plasma Lactic Acid Man (0.7-2.0) mmol/L Alkaline Phosphatase (41-126) U/L Troponin I 0.236 H* (0.000-0.034) ng/mL Total Protein (6.2-8.2) g/dL Albumin (3.80-4.90) g/dL Albumin/Globulin Ratio (1.60-3.17) g/dL Assessment and Plan Assessment: 1 Acute COVID-19 related pneumonia with extensive groundglass changes involving the right lung mainly in the right lower lobe. D-dimer is elevated. Patient has been symptomatic for at least 6-7 days. She says possible COVID-19 approximately 6 days ago. She is presented with worsening shortness of breath and generalized weakness. The patient remains on 15 L of oxygen by nasal cannula along with a nonrebreather mask. She did receive tocilizumab. Remains on Decadron, Lovenox 2 Acute hypoxic respiratory failure currently on 15 L by nasal cannula as a nonrebreather mask 3 Known history of coronary artery disease with previous stenting of the LAD, currently inactive in stable 4 History of Sjogren's disease/lupus 5 Remote history of DVT of the lower extremity 6 Osteoarthritis 7 Hypertension 8 Hypothyroidism 9 History of TIA without any residual deficits Plan: The patient was seen and evaluated by Dr. High Chest x-ray and labs reviewed She has been slow to progress Continue the current treatment plan Titrate down the FiO2 as tolerated She is a DO NOT RESUSCITATE/DO NOT INTUBATE CODE STATUS Prognosis is guarded I, the cosigning physician, performed a history & physical examination of the patient. Lungs sounds with bibasilar crackles. Maintaining good O2 saturations in the 90s on 15 L high flow nasal cannula plus a nonrebreather mask. I discussed the assessment and plan of care with my nurse practitioner, Anahi Gaona. I attest to the above note as dictated by her.
[2020-08-05 15:39] LABS: ALT 27 U/L (4-34)
--- NOTE | 2020-08-05 16:58 | PN ---
PROGRESS NOTE DATE OF SERVICE: 08/05/2020 I am covering for Dr. Rios. This 84-year-old woman was admitted with acute Covid 19 infection, dehydration also had developed hypotension, tachycardia. Patient being closely monitored. Lactic acid elevated. Cultures obtained and empiric antibiotics have been given at this time. The patient's troponin is also elevated. Past medical history reviewed. REVIEW OF SYSTEMS: CARDIOVASCULAR SYSTEM: No angina. RESPIRATION: As mentioned earlier. GI as mentioned earlier. : No dysuria. NERVOUS SYSTEM: No numbness or weakness. CURRENT MEDICATIONS: Reviewed and include: Tylenol, Hamel, Lipitor, Rocaltrol, vitamin D. doses reviewed. PHYSICAL EXAM: Patient is alert and oriented x2. Pulse is 126, blood pressure 119/61, respiration 22, temperature 98.2, pulse ox 94% on 15 L. HEENT: Conjunctivae normal. NECK: No JVD. CARDIOVASCULAR: S1, S2 muffled. RESPIRATORY: Breath sounds diminished in the bases. A few scattered rhonchi and crackles. ABDOMEN: Soft, nontender. LEGS are no edema. No swelling. NERVOUS SYSTEM: No focal deficits. LAB STUDIES: WBC 13.2, hemoglobin 14.3, platelets 113. ASSESSMENT: 1. Acute COVID-19 infection as well as Covid 19 interstitial pneumonia, right more the left, acute hypoxic respiratory failure. 2. Possible sepsis with hypotension. 3. Sinus tachycardia. 4. Troponin 0.236. Rule out acute ypi-[id number]-elevation myocardial infarction. 5. Elevated lactate fall, possibly secondary to sepsis. 6. Dehydration. 7. Status post Remdesivir and tocilizumab. 8. Acute urinary tract infection. 9. Acute grief reaction. 10.Hypokalemia. 11.Increased WBC. 12.Elevated inflammatory markers of Covid 19. 13.Hypoalbuminemia with mild protein calorie malnutrition. 14.History of cerebrovascular accident, transient ischemic attack. 15.History of deep vein thrombosis. 16.History of degenerative joint disease. 17.History of Sjogren's. 18.History of lupus. 19.History of cholecystectomy. RECOMMENDATIONS AND DISCUSSION: Continue current medications, management and symptomatic treatment. I will obtain the cultures. Empiric antibiotics. Repeat D-dimer. If the D-dimer is elevated, I would also recommend a CT angio of the chest. Otherwise, Cardiology consultation. Would also recommend antiplatelet agents. The patient is on Lovenox as well. Guarded prognosis because of multiple complex medical issues. Further recommendations to follow. MMODL / IJN: [id number] /
[2020-08-05] MEDS: ASPIRIN 81 MG PO SCH (17:20)
[2020-08-05] MEDS: ATORVASTATIN 20 MG TAB PO SCH (21:06)
[2020-08-06] MEDS: LEVOTHYROXINE 112 MCG TAB PO SCH (05:42)
[2020-08-06] MEDS: PANTOPRAZOLE 40 MG TABLET PO SCH (09:04)
[2020-08-06] MEDS: ZINC SULFATE 220 MG CAP PO SCH (09:04)
[2020-08-06] MEDS: ASCORBIC ACID 500 MG TAB PO SCH (09:04)
[2020-08-06] MEDS: GABAPENTIN 400 MG CAP PO SCH ×3 (09:04→22:14)
[2020-08-06] MEDS: METOPROLOL TARTRATE 25 MG TAB PO SCH (09:04)
[2020-08-06] MEDS: VENLAFAXINE HCL ER 150 MG CAP PO SCH (09:04)
[2020-08-06] MEDS: CHOLECALCIFEROL 25 MCG (1000 IU) TABLET PO SCH (09:04)
[2020-08-06] MEDS: CEVIMELINE 30 MG CAP PO SCH ×2 (09:05→22:15)
[2020-08-06] MEDS: DEXAMETHASONE SOD PHOSPHATE 10 MG/ML 1 ML VIAL IV SCH (09:05)
[2020-08-06] MEDS: ENOXAPARIN 30 MG/0.3 ML SYRINGE SQ SCH ×2 (09:05→22:14)
[2020-08-06] MEDS: ASPIRIN 81 MG PO SCH (09:05)
[2020-08-06] MEDS: FOLIC ACID 1 MG TAB PO SCH (09:05)
[2020-08-06] MEDS: POTASSIUM CHLORIDE ER 20 MEQ TAB.ER PO SCH (09:10)
--- NOTE | 2020-08-06 10:28 | P.CRDCN ---
History of Present Illness History of present illness: HISTORY OF PRESENTING ILLNESS This is a pleasant 84-year-old female past medical history significant for coronary artery disease status post PCI mid LAD in 2008, hyperlipidemia, hyp ertension, GERD, DVT. She follows in the office with Dr. Yee. We have been asked to see in consultation for elevated troponin. Patient presented to the emergency department on 07/27/20 with chief complaint of weakness and worsening shortness of breath and cough. She was no longer able to ambulate in her house due to weakness and fatigue. Patient tested positive for COVID 6 days prior to admission to ER. She believes she got this from her who unfortunately recently from covid-19 4 days prior to admission. 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 Patient is seen and examined at bedside, she appears short of breath. She denies chest pain, palpitations, lower extremity edema, lightheadedness, syncope. Laboratory data reviewed, troponin 0.23-->0.22, Sodium 137, d-dimer 19, potassium 3.7, serum creatinine 0.62, WBC 13.4, hemoglobin 14.3, platelets 113. Vital signs blood pressure 126/77, heart rate 89, requiring high flow nasal cannula nonrebreather to maintain oxygen saturations >92%, afebrile. Current home cardiac medications include aspirin 81mg daily, simvastatin 40mg nightly, omeprazole, metoprolol tartrate 25mg daily, lasix 20mg daily. EKG reveals sinus rhythm, HR 78, no significant St -twave abnormalities. EKG yesterday sinus tachycardia HR 125, no significant St-T wave abnormalities. DIAGNOSTICS Last Cardiac Catheterization 10/2017: Mild disease in LAD with no evidence of r estenosis. Left ventricular ejection fraction 50-55% Most recent echocardiogram 09/2017normal EF, mild TR, mild MR Event monitor on 05/2019- sinus rhythm one episode afraid beat wide complex tachycardia Telemetry- patient not currently on telemetry Chest CT- no eveidence of pulmonary embolism. Extensive opacities of chasity bilateral lungs consistent with history of Covid-19 Chest xray increased pulmonary interstitial pneumonia compared to recent exam. REVIEW OF SYSTEMS At the time of my exam: CONSTITUTIONAL: Denies fever or chills. CARDIOVASCULAR:+shortness of breath Denies chest pain, orthopnea, PND or palpitations. RESPIRATORY: + cough. GASTROINTESTINAL: Denies abdominal pain, diarrhea, constipation, nausea or vomiting. MUSCULOSKELETAL: Denies myalgias. NEUROLOGIC: +weakness, Denies numbness, tingling, ENDOCRINE: +Fatigue, Denies weight change, polydipsia or polyurina. GENITOURINARY: Denies burning, hematuria or urgency with micturation. HEMATOLOGIC: Denies history of anemia or bleeding. PHYSICAL EXAMINATION Blood pressure 126/77 heart rate 89 afebrile and maintaining oxygen saturation >92% requiring non-rebreather and 15L high flow nasal cannula CONSTITUTIONAL: No apparent distress. HEENT: Head is normocephalic. Pupils are equal, round. Sclerae anicteric. Mucous membranes of the mouth are moist. No JVD. No carotid bruit. CHEST EXAMINATION: Lungs are diminished bilaterally, crackles in bases No chest wall tenderness is noted on palpation or with deep breathing. HEART EXAMINATION: Tachycardic rate and rhythm. S1, S2 heard. No murmurs, gallops or rub. ABDOMEN: Soft, nontender. Positive bowel sounds. EXTREMITIES: 2+ peripheral pulses, no lower extremity edema and no calf tenderness. SKIN: intact NEUROLOGIC EXAMINATION: Patient is awake, alert and oriented x3. ASSESSMENT Elevated troponin, mildly elevated, peaked at 0.23, no evidence of ischemia on EKG, patient does not have chest discomfort. Most likely related to covid-19 pneumonia Covid-19 pneumonia Coronary artery disease status post PCI mid LAD in 2008 Hyperlipidemia Hypertension GERD History DVT PLAN Obtain 2D echocardiogram and doppler study to assess cardiac structure and function. Continue current cardiac medications at this time. Covid-19 treatment per pulmonary and primary If no acute changes on echocardiogram, no further cardiac workup indicated at this time. Patient can Follow up with Dr. Yee in the outpatient office. Thank you kindly for this consultation. Nurse Practitioner note has been reviewed, I agree with a documented findings and plan of care. Patient was seen and examined. Past Medical History Past Medical History: CVA/TIA, Deep Vein Thrombosis (DVT), GERD/Reflux, Hypertension, Osteoarthritis (OA), Thyroid Disorder Additional Past Medical History / Comment(s): Sjogrens, lupus, hx. leaky valve, neuropathy, SOB w/exertion, COVID+ History of Any Multi-Drug Resistant Organisms: None Reported Past Surgical History: Cholecystectomy, Heart Catheterization, Heart Catheterization With Stent, Hysterectomy, Tonsillectomy Additional Past Surgical History / Comment(s): Varicose vein repair, cataract surgery Past Anesthesia/Blood Transfusion Reactions: No Reported Reaction Date of Last Stent Placement:: 2007 Past Psychological History: No Psychological Hx Reported Smoking Status: Former smoker Past Alcohol Use History: Rare Past Drug Use History: None Reported - Past Family History Mother Family Medical History: No Reported History Medications and Allergies Home Medications Medication Instructions Recorded Confirmed Type Cevimeline [Evoxac] 30 mg PO BID 10/24/15 07/27/20 History Folic Acid 1 mg PO DAILY 10/24/15 07/27/20 History Levothyroxine Sodium [Levoxyl] 112 mcg PO DAILY 10/24/15 07/27/20 History Metoprolol Tartrate 25 mg PO DAILY 10/24/15 07/27/20 History Omeprazole 20 mg PO DAILY 10/24/15 07/27/20 History metHOTREXate sodium [Methotrexate] 25 mg PO Q7D 10/24/15 07/27/20 History HYDROcodone/APAP 10-325MG [Jackson 1 tab PO Q6H PRN 06/18/17 07/27/20 History 10-325] Simvastatin [Zocor] 40 mg PO HS 06/18/17 07/27/20 History Dexamethasone 6 mg PO DAILY #9 tablet 07/22/20 07/27/20 Rx Diclofenac Sodium [Voltaren Gel] 2 gram TOPICAL QID PRN 07/22/20 07/27/20 History Furosemide [Lasix] 20 mg PO DAILY 07/22/20 07/27/20 History Gabapentin 800 mg PO TID 07/22/20 07/27/20 History Nitrofurantoin Monohyd/M-Cryst 100 mg PO Q12HR #14 cap 07/22/20 07/27/20 Rx [Macrobid] Potassium Chloride ER [K-Dur 20] 20 meq PO DAILY #3 tab 07/22/20 07/27/20 Rx Venlafaxine HCl ER [Effexor Xr] 150 mg PO DAILY 07/22/20 07/27/20 History calcitrioL [Calcitriol] 0.25 mcg PO MOFR 07/22/20 07/27/20 History Allergies Allergy/AdvReac Type Severity Reaction Status Date / Time No Known Allergies Allergy Verified 07/27/20 17:12 Physical Exam Vitals: Vital Signs Temp Pulse Resp BP Pulse Ox 08/06/20 05:17 98.3 F 89 19 126/77 93 L 08/06/20 01:51 98.5 F 109 H 19 124/71 90 L 08/05/20 21:47 98.4 F 110 H 19 113/72 94 L 08/05/20 19:33 105/69 08/05/20 19:19 98 20 08/05/20 17:56 97.9 F 98 20 110/69 93 L 08/05/20 14:32 137 H 105/64 08/05/20 14:04 98.1 F 126 H 22 92/61 95 08/05/20 10:00 98.2 F 55 L 20 103/65 90 L Intake and Output 08/05/20 08/06/20 08/06/20 22:59 06:59 14:59 Intake Total 250 Output Total 250 Balance 0 Intake: Oral 250 Output: Urine 250 Other: Voiding Method Diaper Incontinent Weight 73.5 kg Results 08/05/20 14:27 08/05/20 14:27 Cardiac Enzymes 08/05/20 08/05/20 08/05/20 Range/Units 06:48 14:17 14:27 AST 30 40 H (13-35) U/L Troponin I 0.236 H* (0.000-0.034) ng/mL 08/05/20 Range/Units 19:58 AST (13-35) U/L Troponin I 0.223 H* (0.000-0.034) ng/mL Coagulation 08/05/20 Range/Units 14:27 PT 12.0 (9.0-12.0) sec CBC 08/05/20 08/05/20 Range/Units 06:48 14:27 WBC 8.89 13.4 H (4.50-10.00) X 10*3/uL RBC 4.37 4.57 (4.10-5.20) X 10*6/uL Hgb 13.9 14.3 (12.0-15.0) g/dL Hct 43.1 44.6 (37.2-46.3) % Plt Count 122 L 113 L (140-440) X 10*3/uL Comprehensive Metabolic Panel 08/05/20 08/05/20 Range/Units 06:48 14:27 Sodium 142 137 (135-145) mmol/L Potassium 3.4 L 3.7 (3.5-5.5) mmol/L Chloride 105 103 (96-109) mmol/L Carbon Dioxide 27.2 27 (21.6-31.8) mmol/L BUN 25.0 24 H (9.0-27.0) mg/dL Creatinine 0.6 0.62 (0.6-1.5) mg/dL Glucose 84 270 H (70-110) mg/dL Calcium 8.8 8.6 (8.7-10.3) mg/dL AST 30 40 H (13-35) U/L ALT 24 27 (8-44) U/L Alkaline Phosphatase 148 H 140 H (41-126) U/L Total Protein 5.8 L 6.1 L (6.2-8.2) g/dL Albumin 3.30 L 3.1 L (3.80-4.90) g/dL Current Medications Generic Name Dose Route Start Last Admin Trade Name Freq PRN Reason Stop Dose Admin Acetaminophen 650 mg 07/27/20 18:09 08/02/20 06:06 Acetaminophen Tab 325 Mg Tab PO 650 mg Q6HR PRN Administration Mild Pain or Fever > 100.5 Hydrocodone Bitart/Acetaminophen 1 each 07/27/20 18:10 Hydrocodone/Apap 10-325mg 1 Each Tab PO Q6H PRN Pain Ascorbic Acid 500 mg 08/04/20 17:45 08/05/20 09:34 Ascorbic Acid 500 Mg Tab PO 500 mg DAILY JAMIE Administration Aspirin 81 mg 08/05/20 15:15 08/05/20 17:20 Aspirin 81 Mg PO 81 mg DAILY JAMIE Administration Atorvastatin Calcium 20 mg 07/27/20 21:00 08/05/20 21:06 Atorvastatin 20 Mg Tab PO 20 mg HS JAMIE Administration Calcitriol 0.25 mcg 07/27/20 18:45 08/03/20 09:36 Calcitriol 0.25 Mcg Cap PO 0.25 mcg MoFr@0900 JAMIE Administration Cevimeline HCl 30 mg 07/27/20 21:00 08/05/20 21:06 Cevimeline 30 Mg Cap PO 30 mg BID JAMIE Administration Cholecalciferol 25 mcg 08/04/20 17:45 08/05/20 09:34 Cholecalciferol 25 Mcg (1000 Iu) Tablet PO 25 mcg DAILY JAMIE Administration Dexamethasone Sodium Phosphate 6 mg 07/28/20 09:00 08/05/20 09:38 Dexamethasone Sod Phosphate 10 Mg/Ml 1 Ml Vial IV 6 mg DAILY JAMIE Administration Diclofenac Sodium 2 gm 07/27/20 18:10 Diclofenac Sodium Gel 100 Gm Tube TOPICAL QID PRN Pain Enoxaparin Sodium 30 mg 07/27/20 21:00 08/05/20 21:06 Enoxaparin 30 Mg/0.3 Ml Syringe SQ 30 mg BID JAMIE Administration Folic Acid 1 mg 07/28/20 09:00 08/05/20 09:35 Folic Acid 1 Mg Tab PO 1 mg DAILY JAMIE Administration Gabapentin 800 mg 07/27/20 22:00 08/05/20 21:06 Gabapentin 400 Mg Cap PO 800 mg TID JAMIE Administration Ceftriaxone Sodium 1 gm/ 50 mls @ 100 mls/hr 08/05/20 21:00 08/05/20 21:06 Sodium Chloride IVPB 100 mls/hr HS JAMIE Administration Levothyroxine Sodium 112 mcg 07/28/20 06:30 08/06/20 05:42 Levothyroxine 112 Mcg Tab PO 112 mcg DAILY@0630 JAMIE Administration Metoprolol Tartrate 25 mg 07/28/20 21:00 08/05/20 09:24 Metoprolol Tartrate 25 Mg Tab PO Not Given DAILY JAMIE Naloxone HCl 0.2 mg 07/27/20 18:09 Naloxone 0.4 Mg/Ml 1 Ml Vial IV Q2M PRN Opioid Reversal Pantoprazole Sodium 40 mg 07/30/20 07:30 08/05/20 09:34 Pantoprazole 40 Mg Tablet PO 40 mg [id number] JAMIE Administration Potassium Chloride 20 meq 07/28/20 09:00 08/05/20 09:23 Potassium Chloride Er 20 Meq Tab.Er PO Not Given DAILY JAMIE Venlafaxine HCl 150 mg 07/28/20 09:00 08/05/20 09:34 Venlafaxine Hcl Er 150 Mg Cap PO 150 mg DAILY JAMIE Administration Zinc Sulfate 220 mg 08/04/20 17:45 08/05/20 09:34 Zinc Sulfate 220 Mg Cap PO 220 mg DAILY JAMIE Administration Intake and Output 08/05/20 08/06/20 08/06/20 22:59 06:59 14:59 Intake Total 250 Output Total 250 Balance 0 Intake: Oral 250 Output: Urine 250 Other: Voiding Method Diaper Incontinent Weight 73.5 kg 08/05/20 14:27 08/05/20 14:27
--- NOTE | 2020-08-06 12:25 | ECHOF ---
Referral Reason:elevated troponin MEASUREMENTS -------- HEIGHT: 160.0 cm WEIGHT: 73.5 kg BP: 123/76 RVIDd: 3.7 cm (< 3.3) IVSd: 1.3 cm (0.6 - 1.1) LVIDd: 3.9 cm (3.9 - 5.3) LVPWd: 1.4 cm (0.6 - 1.1) IVSs: 1.8 cm LVIDs: 2.5 cm LVPWs: 1.5 cm LAESV Index (A-L): 21.91 ml/m Ao Diam: 2.9 cm (2.0 - 3.7) MV EXCURSION: 14.703 mm (> 18.000) MV EF SLOPE: 83 mm/s (70 - 150) EPSS: 1.3 cm MV E Ryan: 0.65 m/s MV DecT: 202 ms MV A Ryan: 0.71 m/s MV E/A Ratio: 0.91 RAP: 5.00 mmHg RVSP: 41.24 mmHg FINDINGS -------- Sinus rhythm. This was a technically adequate study. The left ventricular size is normal. There is mild concentric left ventricular hypertrophy. Overa ll left ventricular systolic function is normal with, an EF between 55 - 60 %. The right ventricle is mildly enlarged. Normal LA size by volume 22+/-6 ml/m2. The right atrium is mildly enlarged. Interatrial and interventricular septum intact. There is mild aortic valve sclerosis. There is no evidence of aortic regurgitation. There is no e vidence of aortic stenosis. Mild mitral annular calcification present. Mild mitral regurgitation is present. Moderate tricuspid regurgitation present. There is mild to moderate pulmonary hypertension. The r ight ventricular systolic pressure, as measured by Doppler, is 41.24mmHg. There is no pulmonic regurgitation present. The aortic root size is normal. IVC Not well visulized. There is no pericardial effusion. CONCLUSIONS -------- 1. There is mild concentric left ventricular hypertrophy. 2. Overall left ventricular systolic function is normal with, an EF between 55 - 60 %. 3. The right ventricle is mildly enlarged. 4. Normal LA size by volume 22+/-6 ml/m2. 5. The right atrium is mildly enlarged. 6. There is mild aortic valve sclerosis. 7. Mild mitral regurgitation is present. 8. Moderate tricuspid regurgitation present. 9. There is mild to moderate pulmonary hypertension. SALES ENABLEMENT MANAGER: Missy Flores RDCS
[2020-08-06 16:33] LABS: Basophils # (A) 0.02 X 10*3/uL (0.00-0.10); Basophils % (A) 0.2 %; Eosinophils # (A) 0.28 X 10*3/uL (0.04-0.35); Eosinophils % (A) 2.7 %; Lymphocytes % (A) 14.3 %; MCH 31.7 pg (27.0-32.0); MCHC 31.8 g/dL (32.0-37.0); MCV 99.5 fL (80.0-97.0); Mean Platelet Volume 12.4 fL (9.5-12.2); Monocytes # (A) 0.52 X 10*3/uL (0.20-1.00); Neutrophils # (A) 8.07 X 10*3/uL (1.80-7.70); Platelet Count 113 X 10*3/uL (140-440); RBC 4.42 X 10*6/uL (4.10-5.20); RDW 14.3 % (11.5-14.5); WBC 10.47 X 10*3/uL (4.50-10.00)
--- NOTE | 2020-08-06 16:50 | P.PN ---
Subjective Progress Note Date: 08/06/20 Principal diagnosis: COVID 19 84-year-old female patient presented to the hospital because of symptoms of weakness and shortness of breath. the patient had a positive COVID-19 test 6 days ago. She was also symptomatic. She days prior to that.She has been COVID- 19 positive and her from complications of COVID-19 infection approximately 4 days ago. The patient has been living alone. She has been quite debilitated and she is not getting around her house and she's been feeling very weak. No complaints of chest pain or abdominal pain or nausea or vomiting or headache or altered mentation. In the emergency, the patient was afebrile. Pulse ox was 92% on 4 L of oxygen by nasal cannula. She looked quite dehydrated and she was started on IV fluids. Blood work showed a white cell count of 8.9 and the patient some lymphopenia. Normal coagulation profile. D-dimer was 9.2. LFTs were abnormal with an AST of 55, ALT of 30, alk phos of 88, LDH was 1671, CRP was 6.7 and COVID-19 was positive. The patient's chest x-ray showed ground glass changes in the right lung and the CAT scan of the chest was also done that showed diffuse ground glass pulmonary infiltrates involving the right lung made in the lung bases addition to some limited change in the left lower lobe. The patient was started on Decadron 6 g IV every 24 hours.she was also started on Decadron 45 mg subcu every 12 hours. She is also on vitamin C, vitamin D and zinc 07/28/2020, the patient is being seen in follow-up. She is sitting in the emergency department and she has moved to a different room. She remains on Decadron 6 mg every 24 hours. She is also on Lovenox 45 mg subcu every 12 hours. Noted the patient was on oxygen at 4 L yesterday and sincethis morning at around 8:00, the patient's oxygen requirements have gradually increased. Currently she is on 15 L of oxygen by nasal cannula. She is feeling slightly more short of breath. She is also more lethargic compared to yesterday. Her LDH level is 04/16/2007 and a CRP level is at 7.6. Electrolytes are all within normal limits. D-dimer from yesterday was 9.24. She continues to have lymphopenia on her white cell count. She is currently on a combination of Decadron and Remdesivir and this is day 2 of treatment. Nevertheless, with increasing oxygen requirements, I think it's highly unlikely the patient is going to respond to Remdesivir and I'm considering starting this medication and often this patient Tocilizumab in conjunction with steroids. 07/29/2020, the patient is slightly worse. She is still on 15 L high flow nasal cannula. She did desaturate on few occasions that she had to be placed on 100% nonrebreather and she was taken off the nonrebreather again. She is on Decadron. She was on Remdesivir and due to her progression, the patient was switched to Tocilizumab 560 mg IV 1.In regards to her blood work, the LDH level is 04/16/2007 with a CRP level of 7.9. Rest of the electrodes are all within normal limits. Her d-dimer earlier was 9.24 and this needs to be repeated. Electrolytes are all within normal limits. She continues to have lymphopenia with a lymphocyte count of 0.8. She is afebrile. Diet is fair and she is eating approximately 50% of her food trays. On 07/30/2020 patient seen in follow-up on medical surgical floor. She is on 15 L high flow nasal cannula in addition to 100% nonrebreather, and her sats are between 91-96%, she is afebrile, hemodynamically stable, she does get short of breath with any exertion, but appears to be in no acute distress, patient did receive a dose of Toci on 07/28/2020, and her Remdesivir was discontinued early in regards to worsening hypoxemia. Today's labs have been reviewed, and today's d-dimer is 11.3, and inflammatory markers are not available for today, pro-Level Was Low at 0.34, Yesterday's Labs Showed Electrolytes and Renal Profile Daily Were Fairly Unremarkable, Patient Remains on IV Decadron 6 Mg Daily, and Lovenox 30 mg twice daily. On 07/31/2020 patient seen in follow-up on medical surgical floor, she still requires high flow oxygen, and she is currently on 15 L high flow nasal cannula and 100% nonrebreather mask, her pulse ox is 88%, she appears to be in no acute distress, she appears very weak, frail, today's is her 's and patient is unable to attend her 's . Afebrile, blood pressure stable. She denies any specific complaints, patient did receive a dose of Toci 07/28/2020, she remains on steroids, despite that her hypoxemia seems to be progressing. Today's labs have been reviewed showing white blood cell count is 7.8, hemoglobin is 14.3, d-dimer is 11.9, electrolytes and renal profile are within normal limits, LDH is down to 539, and CRP is down to 2. On 08/02/1999 the patient seen in follow-up on medical surgical floor. She continues on 15 L high flow and 100% nonrebreather mask, she states she's feeling a little better, she is resting in bed, she is weak, her oral intake is poor, but she denies any worsening dyspnea, and her work of breathing does not seem to be increased. Her pulse ox on 15 L of high flow cannula and NONREBREATHER IS 94%, SHE IS AFEBRILE, HEMODYNAMICALLY SHE STABLE, DENIES ANY CHEST DISCOMFORT. She denies any cough, denies any nausea vomiting or diarrhea, no recent chest x-ray, her d-dimer continues to trend up, and is currently up at 17.04, LDH is 583, and CRP is 1.1. Patient has completed a course of Remdesivir, she was also given Tocilizumab on 07/28/2020 On 08/02/2020 patient is seen in follow-up, still requiring high flow oxygen, with the patient is high flow and percent nonrebreather, her pulse ox is between 85-94%, patient is very weak, fatigued, her oral intake is very poor, the nurse reports that she has not been eating much, she is afebrile, although she denies worsening dyspnea she appears to be debilitated, and weak. Her d-dimer continues to trend up and is currently at 25.71, and CTA chest was completed last night showing no evidence of large central pulmonary embolism, and there was inadequate opacification to assess to subsegmental pulmonary arteries, converted extensive opacities the bilateral lungs consistent with history of COVID-19, lower extremity Dopplers were negative for DVT On 08/03/2020 patient is seen in follow-up. She continues to require 15 L high flow nasal cannula and 100% nonrebreather mask, and her pulse ox of 94%, however most the time her nonrebreather mask is not on her face Perez, she is resting in bed, she appears weak, but appears to be in no respiratory distress, she is afebrile, hemodynamically she is stable, denies any specific complaints, she states that she does not want NG tube inserted, and she is trying to increase her oral intake, and there is half- eaten ice cream at the bedside. No chest discomfort, no cough, no nausea, no new labs today On 08/04/2020 patient seen in follow-up on medical surgical floor, she is currently on 15 L high flow, and her percent nonrebreather, and her pulse oximetry between 90-94%, today she is up in the chair, looks comfortable, she is awake and alert, responds to questions appropriately, denies any worsening dysp kiko, still requiring high flow oxygen, no fever or chills, no headaches, no lightheadedness or dizziness no abdominal pain no nausea vomiting or diarrhea, she refused NG tube and she promised to increase her oral intake, she is tolerating oral diet On 08/06/2020 patient seen in follow-up on medical surgical floor, she is awake and alert, she still requires high flow oxygen at 15 L per high flow nasal cannula and 100% nonrebreather, clinically she does not seem to be more dyspneic, but persistently hypoxic requiring high flow oxygen. She is trying to keep up her oral intake. Today's labs showing white blood cell count of 10.4, hemoglobin is 14, BMP is pending. Echocardiogram showed EF of 55-60%, mild MR, moderate TR, mild to moderate pulmonary hypertension. Patient was seen by cardiology for elevated troponins. Cardiology felt that elevation of troponin was not ischemic in nature. Patient remains on IV Decadron 6 mg daily, she is on Rocephin empirically, and pro-calcitonin is pending, she's had no fever or chills. Blood culture has shown no growth in 24 hour melinda. Last d-dimer yesterday remained elevated at 19.05. She continues on Lovenox 30 mg twice daily Objective - Vital Signs Vital signs: Vital Signs Temp 98.2 F 08/06/20 13:48 Pulse 87 08/06/20 13:48 Resp 20 08/06/20 13:48 BP 112/71 08/06/20 13:48 Pulse Ox 93 L 08/06/20 13:48 Intake & Output 08/05/20 08/06/20 08/06/20 18:59 06:59 18:59 Intake Total 500 Output Total 250 Balance 250 Weight 73.5 kg Intake: Oral 500 Output: Urine 250 Other: Voiding Method Diaper Diaper Incontinent Incontinent - Exam GENERAL EXAM: Alert, very pleasant, white female, on 15 L per high flow nasal cannula and 100% nonrebreather mask HEAD: Normocephalic/atraumatic. EYES: Normal reaction of pupils, equal size. Conjunctiva pink, sclera white. NOSE: Clear with pink turbinates. THROAT: No erythema or exudates. NECK: No masses, no JVD, no thyroid enlargement, no adenopathy. CHEST: No chest wall deformity. Symmetrical expansion. LUNGS: Equal air entry with no crackles, wheeze, rhonchi or dullness. CVS: Regular rate and rhythm, normal S1 and S2, no gallops, no murmurs, no rubs ABDOMEN: Soft, nontender. No hepatosplenomegaly, normal bowel sounds, no guarding or rigidity. EXTREMITIES: No clubbing, no edema, no cyanosis, 2+ pulses and upper and lower extremities. MUSCULOSKELETAL: Muscle strength and tone normal. SPINE: No scoliosis or deformity SKIN: No rashes CENTRAL NERVOUS SYSTEM: Alert and oriented -3. No focal deficits, tone is nor mal in all 4 extremities. PSYCHIATRIC: Alert and oriented -3. Appropriate affect. Intact judgment and insight. - Labs CBC & Chem 7: 08/06/20 07:27 08/05/20 14:27 Labs: Abnormal Lab Results - Last 24 Hours (Table) 08/05/20 08/05/20 08/05/20 Range/Units 17:25 19:58 19:58 WBC (4.50-10.00) X 10*3/uL MCV (80.0-97.0) fL MCHC (32.0-37.0) g/dL Plt Count (140-440) X 10*3/uL MPV (9.5-12.2) fL Immature Gran # (0.00-0.04) X 10*3/uL Neutrophils # (1.80-7.70) X 10*3/uL Plasma Lactic Acid Man 3.2 H* 2.5 H* (0.7-2.0) mmol/L Troponin I 0.223 H* (0.000-0.034) ng/mL 08/05/20 08/06/20 Range/Units 23:05 07:27 WBC 10.47 H (4.50-10.00) X 10*3/uL MCV 99.5 H (80.0-97.0) fL MCHC 31.8 L (32.0-37.0) g/dL Plt Count 113 L (140-440) X 10*3/uL MPV 12.4 H (9.5-12.2) fL Immature Gran # 0.08 H (0.00-0.04) X 10*3/uL Neutrophils # 8.07 H (1.80-7.70) X 10*3/uL Plasma Lactic Acid Man 3.1 H* (0.7-2.0) mmol/L Troponin I (0.000-0.034) ng/mL Microbiology - Last 24 Hours (Table) 08/05/20 14:27 Blood Culture - Preliminary Blood No Growth after 24 hours Assessment and Plan Plan: Assessment: #1. acute COVID-19 related pneumonia with extensive groundglass changes involving the right lung mainly in the right lower lobe. D-dimer is elevated. Patient has been symptomatic for at least 6-7 days. She says possible COVID-19 approximately 6 days ago. She is presented with worsening shortness of breath and generalized weakness. She initially was on 3 L of oxygen by nasal cannula and her oxygen requirements progressively went up and currently is on a liters. Based on that, I kept on Decadron, discontinue the Remdesivir gave her Tocilizumab , 560 mg IV 1. On today's evaluation, the patient remains on 15 L of oxygen by nasal cannula. No significant change in her condition. Oxygenation remains borderline with the patient is still requiring on and off facemask to supplemented oxygen especially when she desaturates. #2. acute hypoxic respiratory failure currently on 15 L by nasal cannula #3. known history of coronary artery disease with previous stenting of the LAD, currently inactive in stable #4. history of Sjogren's disease/lupus #5. remote history of DVT of the lower extremity #6. osteoarthritis #7. hypertension #8. hypothyroidism #9. history of TIA without any residual deficits Plan: Patient continues to require high flow oxygen and 100% nonrebreather No increased work of breathing Continue current dose steroids, Lovenox, Continue encouraging incentive spirometry use Follow d-dimer on the daily basis Continue supportive treatment Overall prognosis is guarded I performed a history & physical examination of the patient and discussed their management with my nurse practitioner, Phyllis Zaidi. I reviewed the nurse practitioner's note and agree with the documented findings and plan of care. L joaquín sounds are positive for diffuse crackles. The findings and the impression was discussed with the patient. I attest to the documentation by the nurse practitioner. Time with Patient: Less than 30
--- NOTE | 2020-08-06 20:31 | P.PN ---
Subjective Principal diagnosis: The patient is here admitted for Covid pneumonia. 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 She is responding poorly at this point. Appreciate pulmonology input. The patient is much more alert and emotionally appropriate given grief reaction related to her 's . She is able to hold conversation appropriately but is still on high flow oxygen. No new voiding difficulties. We talked about what her life expectation should be now that her this past. Increase by mouth intake. I have reiterated to the patient appropriate by mouth intake. Objective - Vital Signs Vital signs: Vital Signs Temp 97.9 F 08/06/20 17:55 Pulse 110 H 08/06/20 17:55 Resp 20 08/06/20 17:55 BP 128/84 08/06/20 17:55 Pulse Ox 90 L 08/06/20 17:55 Intake & Output 08/06/20 08/06/20 08/07/20 06:59 18:59 06:59 Weight 73.5 kg Other: Voiding Method Diaper Diaper Incontinent Incontinent # Voids 1 - Constitutional General appearance: Present: mild distress - EENT Eyes: Absent: abnormal pupil - Neck Neck: Absent: lymphadenopathy - Respiratory Respiratory: bilateral: diminished - Cardiovascular Rhythm: regular Heart sounds: normal: S1, S2 Abnormal Heart Sounds: Absent: S3 Gallop - Gastrointestinal General gastrointestinal: Present: soft. Absent: tenderness - Neurologic Neurologic: Present: CNII-XII intact - Psychiatric Psychiatric: Present: A&O x's 3 - Labs CBC & Chem 7: 08/06/20 07:27 08/05/20 14:27 Labs: Abnormal Lab Results - Last 24 Hours (Table) 08/05/20 08/05/20 08/05/20 Range/Units 19:58 19:58 23:05 WBC (4.50-10.00) X 10*3/uL MCV (80.0-97.0) fL MCHC (32.0-37.0) g/dL Plt Count (140-440) X 10*3/uL MPV (9.5-12.2) fL Immature Gran # (0.00-0.04) X 10*3/uL Neutrophils # (1.80-7.70) X 10*3/uL Plasma Lactic Acid Man 2.5 H* 3.1 H* (0.7-2.0) mmol/L Troponin I 0.223 H* (0.000-0.034) ng/mL 08/06/20 Range/Units 07:27 WBC 10.47 H (4.50-10.00) X 10*3/uL MCV 99.5 H (80.0-97.0) fL MCHC 31.8 L (32.0-37.0) g/dL Plt Count 113 L (140-440) X 10*3/uL MPV 12.4 H (9.5-12.2) fL Immature Gran # 0.08 H (0.00-0.04) X 10*3/uL Neutrophils # 8.07 H (1.80-7.70) X 10*3/uL Plasma Lactic Acid Man (0.7-2.0) mmol/L Troponin I (0.000-0.034) ng/mL Microbiology - Last 24 Hours (Table) 08/05/20 14:27 Blood Culture - Preliminary Blood No Growth after 24 hours Assessment and Plan (1) COVID-19 Current Visit: Yes Status: Acute Code(s): U07.1 - COVID-19 SNOMED Code(s): 769595191 (2) Dehydration Current Visit: Yes Status: Acute Code(s): E86.0 - DEHYDRATION SNOMED Code(s): 03303049 (3) Urinary tract infection Current Visit: Yes Status: Acute Code(s): N39.0 - URINARY TRACT INFECTION, SITE NOT SPECIFIED SNOMED Code(s): 23478693 (4) Grief Current Visit: Yes Status: Acute Code(s): F43.21 - ADJUSTMENT DISORDER WITH DEPRESSED MOOD SNOMED Code(s): 239992613 Plan: Continue current regimen of treatment. Trajectory of recovery is still somewhat plateauing Check CBC and CMP in the a.m. Appreciate multiple consultants input. See orders otherwise
[2020-08-06] MEDS: ATORVASTATIN 20 MG TAB PO SCH (22:14)
[2020-08-07] MEDS: LEVOTHYROXINE 112 MCG TAB PO SCH (06:00)
[2020-08-07] MEDS: ENOXAPARIN 30 MG/0.3 ML SYRINGE SQ SCH ×2 (07:24→22:24)
[2020-08-07] MEDS: DEXAMETHASONE SOD PHOSPHATE 10 MG/ML 1 ML VIAL IV SCH (07:24)
[2020-08-07] MEDS: METOPROLOL TARTRATE 25 MG TAB PO SCH (07:25)
[2020-08-07] MEDS: ZINC SULFATE 220 MG CAP PO SCH (07:25)
[2020-08-07] MEDS: CHOLECALCIFEROL 25 MCG (1000 IU) TABLET PO SCH (07:25)
[2020-08-07] MEDS: ASCORBIC ACID 500 MG TAB PO SCH (07:25)
[2020-08-07] MEDS: FOLIC ACID 1 MG TAB PO SCH (07:25)
[2020-08-07] MEDS: PANTOPRAZOLE 40 MG TABLET PO SCH (07:25)
[2020-08-07] MEDS: VENLAFAXINE HCL ER 150 MG CAP PO SCH (07:25)
[2020-08-07] MEDS: GABAPENTIN 400 MG CAP PO SCH ×3 (07:25→22:24)
[2020-08-07] MEDS: ASPIRIN 81 MG PO SCH (07:25)
[2020-08-07] MEDS: POTASSIUM CHLORIDE ER 20 MEQ TAB.ER PO SCH (07:26)
[2020-08-07] MEDS: CEVIMELINE 30 MG CAP PO SCH ×2 (07:26→22:24)
--- NOTE | 2020-08-07 08:45 | P.PN ---
Subjective Principal diagnosis: The patient is here admitted for Covid pneumonia. 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 She is responding poorly at this point. Appreciate pulmonology input. The patient is much more alert and emotionally appropriate given grief reaction related to her 's . She is able to hold conversation appropriately but is still on high flow oxygen. No new voiding difficulties. We talked about what her life expectation should be now that her this past. Increase by mouth intake. I have reiterated to the patient appropriate by mouth intake. Objective - Vital Signs Vital signs: Vital Signs Temp 98.8 F 08/07/20 05:45 Pulse 91 08/07/20 05:45 Resp 17 08/07/20 05:45 BP 132/74 08/07/20 05:45 Pulse Ox 90 L 08/07/20 05:45 Intake & Output 08/06/20 08/07/20 08/07/20 18:59 06:59 18:59 Weight 72.5 kg Other: Voiding Method Diaper Diaper Incontinent Incontinent # Voids 1 2 # Bowel Movements 1 - Constitutional General appearance: Present: average body habitus - EENT Eyes: Absent: abnormal pupil - Respiratory Respiratory: bilateral: diminished - Cardiovascular Rhythm: regular Heart sounds: normal: S1, S2 Abnormal Heart Sounds: Absent: S3 Gallop - Gastrointestinal General gastrointestinal: Present: soft. Absent: tenderness - Integumentary Integumentary: Absent: cellulitis - Neurologic Neurologic: Present: CNII-XII intact - Labs CBC & Chem 7: 08/06/20 07:27 08/05/20 14:27 Labs: Abnormal Lab Results - Last 24 Hours (Table) 08/06/20 08/07/20 Range/Units 07:27 06:34 WBC 10.47 H (4.50-10.00) X 10*3/uL MCV 99.5 H (80.0-97.0) fL MCHC 31.8 L (32.0-37.0) g/dL Plt Count 113 L (140-440) X 10*3/uL MPV 12.4 H (9.5-12.2) fL Immature Gran # 0.08 H (0.00-0.04) X 10*3/uL Neutrophils # 8.07 H (1.80-7.70) X 10*3/uL D-Dimer 15.92 H (<0.60) mg/L FEU Microbiology - Last 24 Hours (Table) 08/05/20 14:27 Blood Culture - Preliminary Blood No Growth after 24 hours Assessment and Plan (1) COVID-19 Current Visit: Yes Status: Acute Code(s): U07.1 - COVID-19 SNOMED Code(s): 997965944 (2) Dehydration Current Visit: Yes Status: Acute Code(s): E86.0 - DEHYDRATION SNOMED Code(s): 38645734 (3) Urinary tract infection Current Visit: Yes Status: Acute Code(s): N39.0 - URINARY TRACT INFECTION, SITE NOT SPECIFIED SNOMED Code(s): 85636612 (4) Grief Current Visit: Yes Status: Acute Code(s): F43.21 - ADJUSTMENT DISORDER WITH DEPRESSED MOOD SNOMED Code(s): 765789815 Plan: Continue current regimen of treatment. Trajectory of recovery is still somewhat plateauing Check CBC and CMP in the a.m. Appreciate multiple consultants input. See orders otherwise
--- NOTE | 2020-08-07 12:23 | P.PN ---
Subjective HISTORY OF PRESENTING ILLNESS This is a pleasant 84-year-old female past medical history significant for coronary artery disease status post PCI mid LAD in 2008, hyperlipidemia, hypertension, GERD, DVT. She follows in the office with Dr. Yee. We have been asked to see in consultation for elevated troponin. Patient presented to the emergency department on 07/27/20 with chief complaint of weakness and worsening shortness of breath and cough. She was no longer able to ambulate in her house due to weakness and fatigue. Patient tested positive for COVID 6 days prior to admission to ER. She believes she got this from her who unfortunately recently from covid-19 4 days prior to admission. 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 Patient is seen and examined at bedside, she appears short of breath. She denies chest pain, palpitations, lower extremity edema, lightheadedness, syncope. Laboratory data reviewed, troponin 0.23-->0.22, Sodium 137, d-dimer 19, potassium 3.7, serum creatinine 0.62, WBC 13.4, hemoglobin 14.3, platelets 113. Vital signs blood pressure 126/77, heart rate 89, requiring high flow nasal cannula nonrebreather to maintain oxygen saturations >92%, afebrile. Current home cardiac medications include aspirin 81mg daily, simvastatin 40mg nightly, omeprazole, metoprolol tartrate 25mg daily, lasix 20mg daily. EKG reveals sinus rhythm, HR 78, no significant St - twave abnormalities. EKG yesterday sinus tachycardia HR 125, no significant St-T wave abnormalities. 08/07/2020 Patient is seen and evaluated resting comfortably in bed in no acute distress. She is requiring 15 L of high flow oxygen via nonrebreather. She feels as though her breathing is stable however no real improvement in the previous 24 hours. She denies chest discomfort. Echocardiogram obtained reveals preserved LV systolic function with ejection fraction 55-60%. Blood pressure 106/66 heart rate 94 maintaining oxygen saturation of 90% on 15 L. PHYSICAL EXAMINATION CONSTITUTIONAL: No apparent distress. ASSESSMENT Elevated troponin, mildly elevated, peaked at 0.23, no evidence of ischemia on EKG, patient does not have chest discomfort. Most likely related to covid-19 pneumonia Covid-19 pneumonia Coronary artery disease status post PCI mid LAD in 2008 Hyperlipidemia Hypertension GERD History DVT PLAN Continue treatment for acute COVID-19 infection. Follow-up in the outpatient setting with Dr. Yee in 3-4 weeks for further testing in the office. We will follow along as needed, please feel free to call with further questions or concerns. Nurse Practitioner note has been reviewed, I agree with a documented findings and plan of care. Patient was seen and examined. Objective - Vital Signs Vital signs: Vital Signs Temp 98.4 F 08/07/20 10:00 Pulse 94 08/07/20 10:00 Resp 18 08/07/20 10:00 BP 106/66 08/07/20 10:00 Pulse Ox 90 L 08/07/20 10:00 Intake & Output 08/06/20 08/07/20 08/07/20 18:59 06:59 18:59 Weight 72.5 kg Other: Voiding Method Diaper Diaper Incontinent Incontinent Incontinent External Catheter # Voids 1 2 # Bowel Movements 1 - Labs CBC & Chem 7: 08/06/20 07:27 08/05/20 14:27 Labs: Abnormal Lab Results - Last 24 Hours (Table) 08/06/20 08/07/20 Range/Units 07:27 06:34 WBC 10.47 H (4.50-10.00) X 10*3/uL MCV 99.5 H (80.0-97.0) fL MCHC 31.8 L (32.0-37.0) g/dL Plt Count 113 L (140-440) X 10*3/uL MPV 12.4 H (9.5-12.2) fL Immature Gran # 0.08 H (0.00-0.04) X 10*3/uL Neutrophils # 8.07 H (1.80-7.70) X 10*3/uL D-Dimer 15.92 H (<0.60) mg/L FEU Microbiology - Last 24 Hours (Table) 08/05/20 14:27 Blood Culture - Preliminary Blood No Growth after 24 hours
--- NOTE | 2020-08-07 13:03 | P.PN ---
Subjective Progress Note Date: 08/07/20 Principal diagnosis: COVID 19 84-year-old female patient presented to the hospital because of symptoms of weakness and shortness of breath. the patient had a positive COVID-19 test 6 days ago. She was also symptomatic. She days prior to that.She has been COVID- 19 positive and her from complications of COVID-19 infection approximately 4 days ago. The patient has been living alone. She has been quite debilitated and she is not getting around her house and she's been feeling very weak. No complaints of chest pain or abdominal pain or nausea or vomiting or headache or altered mentation. In the emergency, the patient was afebrile. Pulse ox was 92% on 4 L of oxygen by nasal cannula. She looked quite dehydrated and she was started on IV fluids. Blood work showed a white cell count of 8.9 and the patient some lymphopenia. Normal coagulation profile. D-dimer was 9.2. LFTs were abnormal with an AST of 55, ALT of 30, alk phos of 88, LDH was 1671, CRP was 6.7 and COVID-19 was positive. The patient's chest x-ray showed ground glass changes in the right lung and the CAT scan of the chest was also done that showed diffuse ground glass pulmonary infiltrates involving the right lung made in the lung bases addition to some limited change in the left lower lobe. The patient was started on Decadron 6 g IV every 24 hours.she was also started on Decadron 45 mg subcu every 12 hours. She is also on vitamin C, vitamin D and zinc 07/28/2020, the patient is being seen in follow-up. She is sitting in the emergency department and she has moved to a different room. She remains on Decadron 6 mg every 24 hours. She is also on Lovenox 45 mg subcu every 12 hours. Noted the patient was on oxygen at 4 L yesterday and sincethis morning at around 8:00, the patient's oxygen requirements have gradually increased. Currently she is on 15 L of oxygen by nasal cannula. She is feeling slightly more short of breath. She is also more lethargic compared to yesterday. Her LDH level is 04/16/2007 and a CRP level is at 7.6. Electrolytes are all within normal limits. D-dimer from yesterday was 9.24. She continues to have lymphopenia on her white cell count. She is currently on a combination of Decadron and Remdesivir and this is day 2 of treatment. Nevertheless, with increasing oxygen requirements, I think it's highly unlikely the patient is going to respond to Remdesivir and I'm considering starting this medication and often this patient Tocilizumab in conjunction with steroids. 07/29/2020, the patient is slightly worse. She is still on 15 L high flow nasal cannula. She did desaturate on few occasions that she had to be placed on 100% nonrebreather and she was taken off the nonrebreather again. She is on Decadron. She was on Remdesivir and due to her progression, the patient was switched to Tocilizumab 560 mg IV 1.In regards to her blood work, the LDH level is 04/16/2007 with a CRP level of 7.9. Rest of the electrodes are all within normal limits. Her d-dimer earlier was 9.24 and this needs to be repeated. Electrolytes are all within normal limits. She continues to have lymphopenia with a lymphocyte count of 0.8. She is afebrile. Diet is fair and she is eating approximately 50% of her food trays. On 07/30/2020 patient seen in follow-up on medical surgical floor. She is on 15 L high flow nasal cannula in addition to 100% nonrebreather, and her sats are between 91-96%, she is afebrile, hemodynamically stable, she does get short of breath with any exertion, but appears to be in no acute distress, patient did receive a dose of Toci on 07/28/2020, and her Remdesivir was discontinued early in regards to worsening hypoxemia. Today's labs have been reviewed, and today's d-dimer is 11.3, and inflammatory markers are not available for today, pro-Level Was Low at 0.34, Yesterday's Labs Showed Electrolytes and Renal Profile Daily Were Fairly Unremarkable, Patient Remains on IV Decadron 6 Mg Daily, and Lovenox 30 mg twice daily. On 07/31/2020 patient seen in follow-up on medical surgical floor, she still requires high flow oxygen, and she is currently on 15 L high flow nasal cannula and 100% nonrebreather mask, her pulse ox is 88%, she appears to be in no acute distress, she appears very weak, frail, today's is her 's and patient is unable to attend her 's . Afebrile, blood pressure stable. She denies any specific complaints, patient did receive a dose of Toci 07/28/2020, she remains on steroids, despite that her hypoxemia seems to be progressing. Today's labs have been reviewed showing white blood cell count is 7.8, hemoglobin is 14.3, d-dimer is 11.9, electrolytes and renal profile are within normal limits, LDH is down to 539, and CRP is down to 2. On 08/02/1999 the patient seen in follow-up on medical surgical floor. She continues on 15 L high flow and 100% nonrebreather mask, she states she's feeling a little better, she is resting in bed, she is weak, her oral intake is poor, but she denies any worsening dyspnea, and her work of breathing does not seem to be increased. Her pulse ox on 15 L of high flow cannula and NONREBREATHER IS 94%, SHE IS AFEBRILE, HEMODYNAMICALLY SHE STABLE, DENIES ANY CHEST DISCOMFORT. She denies any cough, denies any nausea vomiting or diarrhea, no recent chest x-ray, her d-dimer continues to trend up, and is currently up at 17.04, LDH is 583, and CRP is 1.1. Patient has completed a course of Remdesivir, she was also given Tocilizumab on 07/28/2020 On 08/02/2020 patient is seen in follow-up, still requiring high flow oxygen, with the patient is high flow and percent nonrebreather, her pulse ox is between 85-94%, patient is very weak, fatigued, her oral intake is very poor, the nurse reports that she has not been eating much, she is afebrile, although she denies worsening dyspnea she appears to be debilitated, and weak. Her d-dimer continues to trend up and is currently at 25.71, and CTA chest was completed last night showing no evidence of large central pulmonary embolism, and there was inadequate opacification to assess to subsegmental pulmonary arteries, converted extensive opacities the bilateral lungs consistent with history of COVID-19, lower extremity Dopplers were negative for DVT On 08/03/2020 patient is seen in follow-up. She continues to require 15 L high flow nasal cannula and 100% nonrebreather mask, and her pulse ox of 94%, however most the time her nonrebreather mask is not on her face Perez, she is resting in bed, she appears weak, but appears to be in no respiratory distress, she is afebrile, hemodynamically she is stable, denies any specific complaints, she states that she does not want NG tube inserted, and she is trying to increase her oral intake, and there is half- eaten ice cream at the bedside. No chest discomfort, no cough, no nausea, no new labs today On 08/04/2020 patient seen in follow-up on medical surgical floor, she is currently on 15 L high flow, and her percent nonrebreather, and her pulse oximetry between 90-94%, today she is up in the chair, looks comfortable, she is awake and alert, responds to questions appropriately, denies any worsening dysp kiko, still requiring high flow oxygen, no fever or chills, no headaches, no lightheadedness or dizziness no abdominal pain no nausea vomiting or diarrhea, she refused NG tube and she promised to increase her oral intake, she is tolerating oral diet On 08/06/2020 patient seen in follow-up on medical surgical floor, she is awake and alert, she still requires high flow oxygen at 15 L per high flow nasal cannula and 100% nonrebreather, clinically she does not seem to be more dyspneic, but persistently hypoxic requiring high flow oxygen. She is trying to keep up her oral intake. Today's labs showing white blood cell count of 10.4, hemoglobin is 14, BMP is pending. Echocardiogram showed EF of 55-60%, mild MR, moderate TR, mild to moderate pulmonary hypertension. Patient was seen by cardiology for elevated troponins. Cardiology felt that elevation of troponin was not ischemic in nature. Patient remains on IV Decadron 6 mg daily, she is on Rocephin empirically, and pro-calcitonin is pending, she's had no fever or chills. Blood culture has shown no growth in 24 hour melinda. Last d-dimer yesterday remained elevated at 19.05. She continues on Lovenox 30 mg twice daily On 08/07/2020 patient seen in follow-up on medical surgical floor, she still remains on high flow oxygen 15 L and her percent nonrebreather mask, she is satting around 90%, she states she feels about the same, still short of breath and desaturates with any exertion, she has been on bedrest for the most part, she has refused physical therapy because she feels very weak and fatigued today, she is trying to pop her oral intake, she states she ate have a bagel at breakfast, she is trying to work on the fruit in taken sips of water, her urine appears to be quite dark, and she was advised to keep up her oral intake, she is afebrile, hemodynamically she is stable. Today's labs have been reviewed, showing improving improving d-dimer down to 15.9, pro-calcitonin level came back negative at 0.07, LDH and CRP are pending at this time. She has no specific complaints, no chest pain, no cough. Her mentation is appropriate, she is answering questions appropriately. She's had no fever or chills overnight Objective - Vital Signs Vital signs: Vital Signs Temp 98.4 F 08/07/20 10:00 Pulse 94 08/07/20 10:00 Resp 18 08/07/20 10:00 BP 106/66 08/07/20 10:00 Pulse Ox 90 L 08/07/20 10:00 Intake & Output 08/06/20 08/07/20 08/07/20 18:59 06:59 18:59 Weight 72.5 kg Other: Voiding Method Diaper Diaper Incontinent Incontinent Incontinent External Catheter # Voids 1 2 # Bowel Movements 1 - Exam GENERAL EXAM: Alert, very pleasant, white female, on 15 L per high flow nasal cannula and 100% nonrebreather mask HEAD: Normocephalic/atraumatic. EYES: Normal reaction of pupils, equal size. Conjunctiva pink, sclera white. NOSE: Clear with pink turbinates. THROAT: No erythema or exudates. NECK: No masses, no JVD, no thyroid enlargement, no adenopathy. CHEST: No chest wall deformity. Symmetrical expansion. LUNGS: Equal air entry with no crackles, wheeze, rhonchi or dullness. CVS: Regular rate and rhythm, normal S1 and S2, no gallops, no murmurs, no rubs ABDOMEN: Soft, nontender. No hepatosplenomegaly, normal bowel sounds, no guarding or rigidity. EXTREMITIES: No clubbing, no edema, no cyanosis, 2+ pulses and upper and lower extremities. MUSCULOSKELETAL: Muscle strength and tone normal. SPINE: No scoliosis or deformity SKIN: No rashes CENTRAL NERVOUS SYSTEM: Alert and oriented -3. No focal deficits, tone is normal in all 4 extremities. PSYCHIATRIC: Alert and oriented -3. Appropriate affect. Intact judgment and insight. - Labs CBC & Chem 7: 08/06/20 07:27 08/05/20 14:27 Labs: Abnormal Lab Results - Last 24 Hours (Table) 08/06/20 08/07/20 Range/Units 07:27 06:34 WBC 10.47 H (4.50-10.00) X 10*3/uL MCV 99.5 H (80.0-97.0) fL MCHC 31.8 L (32.0-37.0) g/dL Plt Count 113 L (140-440) X 10*3/uL MPV 12.4 H (9.5-12.2) fL Immature Gran # 0.08 H (0.00-0.04) X 10*3/uL Neutrophils # 8.07 H (1.80-7.70) X 10*3/uL D-Dimer 15.92 H (<0.60) mg/L FEU Microbiology - Last 24 Hours (Table) 08/05/20 14:27 Blood Culture - Preliminary Blood No Growth after 24 hours Assessment and Plan Plan: Assessment: #1. acute COVID-19 related pneumonia with extensive groundglass changes involving the right lung mainly in the right lower lobe. D-dimer is elevated. Patient has been symptomatic for at least 6-7 days. She says possible COVID-19 approximately 6 days ago. She is presented with worsening shortness of breath and generalized weakness. She initially was on 3 L of oxygen by nasal cannula and her oxygen requirements progressively went up and currently is on a liters. Based on that, I kept on Decadron, discontinue the Remdesivir gave her Tocilizumab , 560 mg IV 1. On today's evaluation, the patient remains on 15 L of oxygen by nasal cannula. No significant change in her condition. Oxygenation remains borderline with the patient is still requiring on and off facemask to supplemented oxygen especially when she desaturates. #2. acute hypoxic respiratory failure currently on 15 L by nasal cannula and 100% nonrebreather mask #3. known history of coronary artery disease with previous stenting of the LAD, currently inactive in stable #4. history of Sjogren's disease/lupus #5. remote history of DVT of the lower extremity #6. osteoarthritis #7. hypertension #8. hypothyroidism #9. history of TIA without any residual deficits Plan: Continue with current dose Lovenox Continue current dose Decadron Patient continues to require high flow oxygen and 100% nonrebreather Clinically seems to be the same, dyspneic with exertion, but fairly comfortable at rest Continue encouraging oral intake,sitting up in the chair, incentive spirometry use Continue supportive treatment Overall prognosis is guarded I performed a history & physical examination of the patient and discussed their management with my nurse practitioner, Phyllis Zaidi. I reviewed the nurse practitioner's note and agree with the documented findings and plan of care. Lung sounds are positive for diffuse crackles. The findings and the impression was discussed with the patient. I attest to the documentation by the nurse practitioner. Time with Patient: Less than 30
[2020-08-07 13:46] LABS: Calcium 8.4 mg/dL (8.7-10.3); Chloride 106 mmol/L (96-109); Glucose 83 mg/dL (70-110); LDH 673 U/L (120-246); Non-African American GFR(CKD) 88.9 (60.0-200.0); Potassium 3.3 mmol/L (3.5-5.5); Sodium 142 mmol/L (135-145)
[2020-08-07 15:43] LABS: C Reactive Protein <0.4 mg/dL (0.0-0.8)
[2020-08-07] MEDS: ATORVASTATIN 20 MG TAB PO SCH (22:24)
[2020-08-07] MEDS: ACETAMINOPHEN TAB 325 MG TAB PO PRN (22:28)
[2020-08-08] MEDS: LEVOTHYROXINE 112 MCG TAB PO SCH (05:35)
[2020-08-08] MEDS: CHOLECALCIFEROL 25 MCG (1000 IU) TABLET PO SCH (08:42)
[2020-08-08] MEDS: GABAPENTIN 400 MG CAP PO SCH ×3 (08:42→20:27)
[2020-08-08] MEDS: METOPROLOL TARTRATE 25 MG TAB PO SCH (08:42)
[2020-08-08] MEDS: ASPIRIN 81 MG PO SCH (08:42)
[2020-08-08] MEDS: ENOXAPARIN 30 MG/0.3 ML SYRINGE SQ SCH ×2 (08:42→20:26)
[2020-08-08] MEDS: DEXAMETHASONE SOD PHOSPHATE 10 MG/ML 1 ML VIAL IV SCH ×2 (08:42→20:27)
[2020-08-08] MEDS: POTASSIUM CHLORIDE ER 20 MEQ TAB.ER PO SCH (08:42)
[2020-08-08] MEDS: FOLIC ACID 1 MG TAB PO SCH (08:42)
[2020-08-08] MEDS: CEVIMELINE 30 MG CAP PO SCH ×2 (08:43→19:29)
[2020-08-08] MEDS: ZINC SULFATE 220 MG CAP PO SCH (08:43)
[2020-08-08] MEDS: VENLAFAXINE HCL ER 150 MG CAP PO SCH (08:43)
[2020-08-08] MEDS: ASCORBIC ACID 500 MG TAB PO SCH (08:43)
[2020-08-08] MEDS: PANTOPRAZOLE 40 MG TABLET PO SCH (08:43)
[2020-08-08 11:04] LABS: HCT 45.3 % (37.2-46.3); HGB 14.4 g/dL (12.0-15.0); MCH 31.7 pg (27.0-32.0); MCHC 31.8 g/dL (32.0-37.0); MCV 99.8 fL (80.0-97.0); Mean Platelet Volume 12.6 fL (9.5-12.2); Platelet Count 106 X 10*3/uL (140-440); RBC 4.54 X 10*6/uL (4.10-5.20); RDW 14.6 % (11.5-14.5); WBC 13.22 X 10*3/uL (4.50-10.00)
[2020-08-08] MEDS ORDERED: MORPHINE SULFATE 4 MG/ML SYRINGE ONE (12:36)
--- NOTE | 2020-08-08 12:37 | XR ---
EXAMINATION TYPE: XR chest 1V portable DATE OF EXAM: 08/08/2020 COMPARISON: 08/05/2020 HISTORY: Shortness of breath TECHNIQUE: Single frontal view of the chest is obtained. FINDINGS: Diffuse interstitial pattern with bilateral lower lobe infiltrate and small effusion. Hear t prominent in size. Biapical pleural thickening. Diffuse osteopenia. IMPRESSION: 1. Diffuse mixed interstitial and alveolar infiltrates correlate for pneumonia otherwise consider CHF .
[2020-08-08] MEDS ORDERED: LORazepam 2 MG/ML INJ IV PRN (13:01)
[2020-08-08 13:17] LABS: African American GFR (CKD) 110.9 (60.0-200.0); Albumin/Globulin Ratio 1.36 (1.60-3.17); Anion Gap 12.8 mmol/L (4.00-12.00); BUN/Creat Ratio 37.5 Ratio (12.00-20.00); Calcium 8.1 mg/dL (8.7-10.3); Carbon Dioxide 23.2 mmol/L (21.6-31.8); Globulin 2.2 g/dL (1.6-3.3); Non-African American GFR(CKD) 95.6 (60.0-200.0); Potassium 3.3 mmol/L (3.5-5.5); Total Bilirubin 0.5 mg/dL (0.2-1.2); Total Protein 5.2 g/dL (6.2-8.2)
[2020-08-08 14:00] LABS: Glucose,Whole Blood 221 mg/dL (75-99)
--- NOTE | 2020-08-08 15:09 | P.PN ---
Subjective Progress Note Date: 08/08/20 Principal diagnosis: COVID 19 84-year-old female patient presented to the hospital because of symptoms of weakness and shortness of breath. the patient had a positive COVID-19 test 6 days ago. She was also symptomatic. She days prior to that.She has been COVID- 19 positive and her from complications of COVID-19 infection approximately 4 days ago. The patient has been living alone. She has been quite debilitated and she is not getting around her house and she's been feeling very weak. No complaints of chest pain or abdominal pain or nausea or vomiting or headache or altered mentation. In the emergency, the patient was afebrile. Pulse ox was 92% on 4 L of oxygen by nasal cannula. She looked quite dehydrated and she was started on IV fluids. Blood work showed a white cell count of 8.9 and the patient some lymphopenia. Normal coagulation profile. D-dimer was 9.2. LFTs were abnormal with an AST of 55, ALT of 30, alk phos of 88, LDH was 1671, CRP was 6.7 and COVID-19 was positive. The patient's chest x-ray showed ground glass changes in the right lung and the CAT scan of the chest was also done that showed diffuse ground glass pulmonary infiltrates involving the right lung made in the lung bases addition to some limited change in the left lower lobe. The patient was started on Decadron 6 g IV every 24 hours.she was also started on Decadron 45 mg subcu every 12 hours. She is also on vitamin C, vitamin D and zinc 07/28/2020, the patient is being seen in follow-up. She is sitting in the emergency department and she has moved to a different room. She remains on Decadron 6 mg every 24 hours. She is also on Lovenox 45 mg subcu every 12 hours. Noted the patient was on oxygen at 4 L yesterday and sincethis morning at around 8:00, the patient's oxygen requirements have gradually increased. Currently she is on 15 L of oxygen by nasal cannula. She is feeling slightly more short of breath. She is also more lethargic compared to yesterday. Her LDH level is 04/16/2007 and a CRP level is at 7.6. Electrolytes are all within normal limits. D-dimer from yesterday was 9.24. She continues to have lymphopenia on her white cell count. She is currently on a combination of Decadron and Remdesivir and this is day 2 of treatment. Nevertheless, with increasing oxygen requirements, I think it's highly unlikely the patient is going to respond to Remdesivir and I'm considering starting this medication and often this patient Tocilizumab in conjunction with steroids. 07/29/2020, the patient is slightly worse. She is still on 15 L high flow nasal cannula. She did desaturate on few occasions that she had to be placed on 100% nonrebreather and she was taken off the nonrebreather again. She is on Decadron. She was on Remdesivir and due to her progression, the patient was switched to Tocilizumab 560 mg IV 1.In regards to her blood work, the LDH level is 04/16/2007 with a CRP level of 7.9. Rest of the electrodes are all within normal limits. Her d-dimer earlier was 9.24 and this needs to be repeated. Electrolytes are all within normal limits. She continues to have lymphopenia with a lymphocyte count of 0.8. She is afebrile. Diet is fair and she is eating approximately 50% of her food trays. On 07/30/2020 patient seen in follow-up on medical surgical floor. She is on 15 L high flow nasal cannula in addition to 100% nonrebreather, and her sats are between 91-96%, she is afebrile, hemodynamically stable, she does get short of breath with any exertion, but appears to be in no acute distress, patient did receive a dose of Toci on 07/28/2020, and her Remdesivir was discontinued early in regards to worsening hypoxemia. Today's labs have been reviewed, and today's d-dimer is 11.3, and inflammatory markers are not available for today, pro-Level Was Low at 0.34, Yesterday's Labs Showed Electrolytes and Renal Profile Daily Were Fairly Unremarkable, Patient Remains on IV Decadron 6 Mg Daily, and Lovenox 30 mg twice daily. On 07/31/2020 patient seen in follow-up on medical surgical floor, she still requires high flow oxygen, and she is currently on 15 L high flow nasal cannula and 100% nonrebreather mask, her pulse ox is 88%, she appears to be in no acute distress, she appears very weak, frail, today's is her 's and patient is unable to attend her 's . Afebrile, blood pressure stable. She denies any specific complaints, patient did receive a dose of Toci 07/28/2020, she remains on steroids, despite that her hypoxemia seems to be progressing. Today's labs have been reviewed showing white blood cell count is 7.8, hemoglobin is 14.3, d-dimer is 11.9, electrolytes and renal profile are within normal limits, LDH is down to 539, and CRP is down to 2. On 08/02/1999 the patient seen in follow-up on medical surgical floor. She continues on 15 L high flow and 100% nonrebreather mask, she states she's feeling a little better, she is resting in bed, she is weak, her oral intake is poor, but she denies any worsening dyspnea, and her work of breathing does not seem to be increased. Her pulse ox on 15 L of high flow cannula and NONREBREATHER IS 94%, SHE IS AFEBRILE, HEMODYNAMICALLY SHE STABLE, DENIES ANY CHEST DISCOMFORT. She denies any cough, denies any nausea vomiting or diarrhea, no recent chest x-ray, her d-dimer continues to trend up, and is currently up at 17.04, LDH is 583, and CRP is 1.1. Patient has completed a course of Remdesivir, she was also given Tocilizumab on 07/28/2020 On 08/02/2020 patient is seen in follow-up, still requiring high flow oxygen, with the patient is high flow and percent nonrebreather, her pulse ox is between 85-94%, patient is very weak, fatigued, her oral intake is very poor, the nurse reports that she has not been eating much, she is afebrile, although she denies worsening dyspnea she appears to be debilitated, and weak. Her d-dimer continues to trend up and is currently at 25.71, and CTA chest was completed last night showing no evidence of large central pulmonary embolism, and there was inadequate opacification to assess to subsegmental pulmonary arteries, converted extensive opacities the bilateral lungs consistent with history of COVID-19, lower extremity Dopplers were negative for DVT On 08/03/2020 patient is seen in follow-up. She continues to require 15 L high flow nasal cannula and 100% nonrebreather mask, and her pulse ox of 94%, however most the time her nonrebreather mask is not on her face Perez, she is resting in bed, she appears weak, but appears to be in no respiratory distress, she is afebrile, hemodynamically she is stable, denies any specific complaints, she states that she does not want NG tube inserted, and she is trying to increase her oral intake, and there is half- eaten ice cream at the bedside. No chest discomfort, no cough, no nausea, no new labs today On 08/04/2020 patient seen in follow-up on medical surgical floor, she is currently on 15 L high flow, and her percent nonrebreather, and her pulse oximetry between 90-94%, today she is up in the chair, looks comfortable, she is awake and alert, responds to questions appropriately, denies any worsening dysp kiko, still requiring high flow oxygen, no fever or chills, no headaches, no lightheadedness or dizziness no abdominal pain no nausea vomiting or diarrhea, she refused NG tube and she promised to increase her oral intake, she is tolerating oral diet On 08/06/2020 patient seen in follow-up on medical surgical floor, she is awake and alert, she still requires high flow oxygen at 15 L per high flow nasal cannula and 100% nonrebreather, clinically she does not seem to be more dyspneic, but persistently hypoxic requiring high flow oxygen. She is trying to keep up her oral intake. Today's labs showing white blood cell count of 10.4, hemoglobin is 14, BMP is pending. Echocardiogram showed EF of 55-60%, mild MR, moderate TR, mild to moderate pulmonary hypertension. Patient was seen by cardiology for elevated troponins. Cardiology felt that elevation of troponin was not ischemic in nature. Patient remains on IV Decadron 6 mg daily, she is on Rocephin empirically, and pro-calcitonin is pending, she's had no fever or chills. Blood culture has shown no growth in 24 hour melinda. Last d-dimer yesterday remained elevated at 19.05. She continues on Lovenox 30 mg twice daily On 08/07/2020 patient seen in follow-up on medical surgical floor, she still remains on high flow oxygen 15 L and her percent nonrebreather mask, she is satting around 90%, she states she feels about the same, still short of breath and desaturates with any exertion, she has been on bedrest for the most part, she has refused physical therapy because she feels very weak and fatigued today, she is trying to pop her oral intake, she states she ate have a bagel at breakfast, she is trying to work on the fruit in taken sips of water, her urine appears to be quite dark, and she was advised to keep up her oral intake, she is afebrile, hemodynamically she is stable. Today's labs have been reviewed, showing improving improving d-dimer down to 15.9, pro-calcitonin level came back negative at 0.07, LDH and CRP are pending at this time. She has no specific complaints, no chest pain, no cough. Her mentation is appropriate, she is answering questions appropriately. She's had no fever or chills overnight On 08/08/2020 patient seen in follow-up on medical surgical floor, she is more dyspneic today, and this morning she had episode of desaturation while being at rest and on 15 L high flow and 100% nonrebreather mask, it took a while to recover, and currently her O2 saturations are ranging between 82-89% at the highest, and patient is more tachypneic on today's exam, she she feels more short of breath, still requiring high flow oxygen, she is afebrile, follow-up chest x-ray showed diffuse mixed interstitial and alveolar infiltrates. Patient has IV fluids infusing at a rate of 75 ML per hour, today's labs have been reviewed, showing white blood cell, 13.2, hemoglobin of 14.4, d-dimer is 15.03, potassium is 3.3, BUN was 15 and creatinine was 0.4. SHe denies chest pain, seems to be tachypneic and short of breath. Objective - Vital Signs Vital signs: Vital Signs Temp 98.2 F 08/08/20 13:59 Pulse 160 H 08/08/20 13:59 Resp 32 H 08/08/20 13:59 BP 175/92 08/08/20 13:59 Pulse Ox 81 L 08/08/20 13:59 Intake & Output 08/07/20 08/08/20 08/08/20 18:59 06:59 18:59 Intake Total 250 Balance 250 Weight 72.5 kg 72.5 kg Intake: Oral 250 Other: Voiding Method Incontinent Diaper Diaper External Catheter Incontinent Incontinent External Catheter External Catheter - Exam GENERAL EXAM: Alert, very pleasant, white female, on 15 L per high flow nasal cannula and 100% nonrebreather mask patient is tachypneic and more dyspneic on today's exam HEAD: Normocephalic/atraumatic. EYES: Normal reaction of pupils, equal size. Conjunctiva pink, sclera white. NOSE: Clear with pink turbinates. THROAT: No erythema or exudates. NECK: No masses, no JVD, no thyroid enlargement, no adenopathy. CHEST: No chest wall deformity. Symmetrical expansion. LUNGS: Equal air entry with no crackles, wheeze, rhonchi or dullness. CVS: Regular rate and rhythm, normal S1 and S2, no gallops, no murmurs, no rubs ABDOMEN: Soft, nontender. No hepatosplenomegaly, normal bowel sounds, no guarding or rigidity. EXTREMITIES: No clubbing, no edema, no cyanosis, 2+ pulses and upper and lower extremities. MUSCULOSKELETAL: Muscle strength and tone normal. SPINE: No scoliosis or deformity SKIN: No rashes CENTRAL NERVOUS SYSTEM: Alert and oriented -3. No focal deficits, tone is normal in all 4 extremities. PSYCHIATRIC: Alert and oriented -3. Appropriate affect. Intact judgment and insight. - Labs CBC & Chem 7: 08/08/20 06:52 08/08/20 06:52 Labs: Abnormal Lab Results - Last 24 Hours (Table) 08/08/20 08/08/20 08/08/20 Range/Units 06:52 06:52 06:52 WBC 13.22 H (4.50-10.00) X 10*3/uL MCV 99.8 H (80.0-97.0) fL MCHC 31.8 L (32.0-37.0) g/dL RDW 14.6 H (11.5-14.5) % Plt Count 106 L (140-440) X 10*3/uL MPV 12.6 H (9.5-12.2) fL D-Dimer 15.03 H (<0.60) mg/L FEU Potassium 3.3 L (3.5-5.5) mmol/L Anion Gap 12.80 H (4.00-12.00) mmol/L Creatinine 0.4 L (0.6-1.5) mg/dL BUN/Creatinine Ratio 37.50 H (12.00-20.00) Ratio POC Glucose (mg/dL) (75-99) mg/dL Calcium 8.1 L (8.7-10.3) mg/dL Alkaline Phosphatase 158 H (41-126) U/L Total Protein 5.2 L (6.2-8.2) g/dL Albumin 3.00 L (3.80-4.90) g/dL Albumin/Globulin Ratio 1.36 L (1.60-3.17) g/dL 08/08/20 Range/Units 13:48 WBC (4.50-10.00) X 10*3/uL MCV (80.0-97.0) fL MCHC (32.0-37.0) g/dL RDW (11.5-14.5) % Plt Count (140-440) X 10*3/uL MPV (9.5-12.2) fL D-Dimer (<0.60) mg/L FEU Potassium (3.5-5.5) mmol/L Anion Gap (4.00-12.00) mmol/L Creatinine (0.6-1.5) mg/dL BUN/Creatinine Ratio (12.00-20.00) Ratio POC Glucose (mg/dL) 221 H (75-99) mg/dL Calcium (8.7-10.3) mg/dL Alkaline Phosphatase (41-126) U/L Total Protein (6.2-8.2) g/dL Albumin (3.80-4.90) g/dL Albumin/Globulin Ratio (1.60-3.17) g/dL Microbiology - Last 24 Hours (Table) 08/05/20 14:27 Blood Culture - Preliminary Blood No Growth after 48 hours Assessment and Plan Plan: Assessment: #1. Acute COVID-19 related pneumonia with extensive groundglass changes involving the right lung mainly in the right lower lobe. D-dimer is elevated. Patient has been symptomatic for at least 6-7 days. She says possible COVID-19 approximately 6 days ago. She is presented with worsening shortness of breath and generalized weakness. She initially was on 3 L of oxygen by nasal cannula and her oxygen requirements progressively went up and currently is on a liters. Based on that, I kept on Decadron, discontinue the Remdesivir gave her Tocilizumab , 560 mg IV 1. On today's evaluation, the patient remains on 15 L of oxygen by nasal cannula. No significant change in her condition. Oxygena tion remains borderline with the patient is still requiring on and off facemask to supplemented oxygen especially when she desaturates. #2. acute hypoxic respiratory failure currently on 15 L by nasal cannula and 100% nonrebreather mask #3. known history of coronary artery disease with previous stenting of the LAD, currently inactive in stable #4. history of Sjogren's disease/lupus #5. remote history of DVT of the lower extremity #6. osteoarthritis #7. hypertension #8. hypothyroidism #9. history of TIA without any residual deficits Plan: Today's chest x-ray has been reviewed, we'll give a dose of IV Lasix 40 mg 1 Hep-Lock IV fluids Continue with current dose Lovenox We'll increase Decadron to twice daily BiPAP support with pressures of 12/6 and FiO2 100% More dyspneic and hypoxic on today's exam Continue supportive care, CODE STATUS is DO NOT RESUSCITATE Continue supportive treatment Overall prognosis is guarded I performed a history & physical examination of the patient and discussed their management with my nurse practitioner, Phyllis Zaidi. I reviewed the nurse practitioner's note and agree with the documented findings and plan of care. Lung sounds are positive for diffuse crackles. The findings and the impression was discussed with the patient. I attest to the documentation by the nurse practitioner.
[2020-08-08] MEDS ORDERED: FUROSEMIDE 10 MG/ML 4 ML VIAL IV STA (15:10)
[2020-08-08] MEDS ORDERED: Potassium Replacement Protocol 1 EACH MISC MISCELLANE PRN (15:35)
[2020-08-08] MEDS: POTASSIUM CHLORIDE 10 MEQ in WATER FOR INJECTION 1 100ML.BAG IVPB SCH ×3 (15:56→17:51)
[2020-08-08] MEDS: MORPHINE SULFATE 4 MG/ML SYRINGE IVP PRN ×2 (16:02→20:27)
[2020-08-08 17:38] LABS: African American GFR (CKD) >90 (>60 ml/min/1.73 sqM); Anion Gap 11 mmol/L; Blood Urea Nitrogen 14 mg/dL (7-17); Calcium 8.6 mg/dL (8.4-10.2); Carbon Dioxide 26 mmol/L (22-30); Chloride 106 mmol/L (98-107); Glucose 199 mg/dL (74-99); Non-African American GFR(CKD) 87 (>60 ml/min/1.73 sqM); Sodium 143 mmol/L (137-145)
[2020-08-08] MEDS: ATORVASTATIN 20 MG TAB PO SCH (19:29)
--- NOTE | 2020-08-08 23:05 | P.PN ---
Subjective Principal diagnosis: The patient is here admitted for Covid pneumonia. 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 She is responding poorly at this point. Appreciate pulmonology input. The patient is much more alert and emotionally appropriate given grief reaction related to her 's . She is able to hold conversation appropriately but is still on high flow oxygen. No new voiding difficulties. We talked about what her life expectation should be now that her this past. Increase by mouth intake. I have reiterated to the patient appropriate by mouth intake. She seems more weak today. I had a long discussion with her son stating that due to her overall roman rbidities, her oxygen level has been minimally improving and I worry about the overall prognosis. Objective - Vital Signs Vital signs: Vital Signs Temp 98.1 F 08/08/20 21:40 Pulse 106 H 08/08/20 21:40 Resp 20 08/08/20 21:40 BP 107/73 08/08/20 21:40 Pulse Ox 91 L 08/08/20 21:40 Intake & Output 08/08/20 08/08/20 08/09/20 06:59 18:59 06:59 Intake Total 250 250 Output Total 650 Balance -400 250 Weight 72.5 kg Intake: Oral 250 250 Output: Urine 650 Other: Voiding Method Diaper Diaper Diaper Incontinent Incontinent Incontinent External Catheter External Catheter External Catheter - Constitutional General appearance: Present: mild distress - EENT Eyes: Absent: abnormal pupil - Neck Neck: Absent: lymphadenopathy - Respiratory Respiratory: bilateral: diminished - Cardiovascular Rhythm: regular Heart sounds: normal: S1, S2 Abnormal Heart Sounds: Absent: S3 Gallop - Gastrointestinal General gastrointestinal: Present: soft. Absent: tenderness - Musculoskeletal Musculoskeletal: Present: generalized weakness - Labs CBC & Chem 7: 08/08/20 06:52 08/08/20 16:57 Labs: Abnormal Lab Results - Last 24 Hours (Table) 08/08/20 08/08/20 08/08/20 Range/Units 06:52 06:52 06:52 WBC 13.22 H (4.50-10.00) X 10*3/uL MCV 99.8 H (80.0-97.0) fL MCHC 31.8 L (32.0-37.0) g/dL RDW 14.6 H (11.5-14.5) % Plt Count 106 L (140-440) X 10*3/uL MPV 12.6 H (9.5-12.2) fL D-Dimer 15.03 H (<0.60) mg/L FEU Potassium 3.3 L (3.5-5.5) mmol/L Anion Gap 12.80 H (4.00-12.00) mmol/L Creatinine 0.4 L (0.6-1.5) mg/dL BUN/Creatinine Ratio 37.50 H (12.00-20.00) Ratio Glucose (74-99) mg/dL POC Glucose (mg/dL) (75-99) mg/dL Calcium 8.1 L (8.7-10.3) mg/dL Alkaline Phosphatase 158 H (41-126) U/L Total Protein 5.2 L (6.2-8.2) g/dL Albumin 3.00 L (3.80-4.90) g/dL Albumin/Globulin Ratio 1.36 L (1.60-3.17) g/dL 08/08/20 08/08/20 Range/Units 13:48 16:57 WBC (4.50-10.00) X 10*3/uL MCV (80.0-97.0) fL MCHC (32.0-37.0) g/dL RDW (11.5-14.5) % Plt Count (140-440) X 10*3/uL MPV (9.5-12.2) fL D-Dimer (<0.60) mg/L FEU Potassium (3.5-5.5) mmol/L Anion Gap (4.00-12.00) mmol/L Creatinine (0.6-1.5) mg/dL BUN/Creatinine Ratio (12.00-20.00) Ratio Glucose 199 H (74-99) mg/dL POC Glucose (mg/dL) 221 H (75-99) mg/dL Calcium (8.7-10.3) mg/dL Alkaline Phosphatase (41-126) U/L Total Protein (6.2-8.2) g/dL Albumin (3.80-4.90) g/dL Albumin/Globulin Ratio (1.60-3.17) g/dL Microbiology - Last 24 Hours (Table) 08/05/20 14:27 Blood Culture - Preliminary Blood No Growth after 72 hours Assessment and Plan (1) COVID-19 Current Visit: Yes Status: Acute Code(s): U07.1 - COVID-19 SNOMED Code(s): 278779375 (2) Dehydration Current Visit: Yes Status: Acute Code(s): E86.0 - DEHYDRATION SNOMED Code(s): 95138076 (3) Urinary tract infection Current Visit: Yes Status: Acute Code(s): N39.0 - URINARY TRACT INFECTION, SITE NOT SPECIFIED SNOMED Code(s): 64618949 (4) Grief Current Visit: Yes Status: Acute Code(s): F43.21 - ADJUSTMENT DISORDER WITH DEPRESSED MOOD SNOMED Code(s): 312777134 Plan: Continue current regimen of treatment. Trajectory of recovery is still somewhat plateauing Check CBC and CMP in the a.m. Appreciate multiple consultants input. See orders otherwise Again, discussion with the son noted.
[2020-08-09] MEDS: LEVOTHYROXINE 112 MCG TAB PO SCH ×2 (05:41→22:41)
[2020-08-09] MEDS: MORPHINE SULFATE 4 MG/ML SYRINGE IVP PRN ×4 (05:50→20:34)
[2020-08-09] MEDS: PANTOPRAZOLE 40 MG TABLET PO SCH (08:01)
[2020-08-09] MEDS: ASCORBIC ACID 500 MG TAB PO SCH (08:02)
[2020-08-09] MEDS: CEVIMELINE 30 MG CAP PO SCH ×2 (08:02→18:46)
[2020-08-09] MEDS: CHOLECALCIFEROL 25 MCG (1000 IU) TABLET PO SCH (08:02)
[2020-08-09] MEDS: ASPIRIN 81 MG PO SCH (08:02)
[2020-08-09] MEDS: GABAPENTIN 400 MG CAP PO SCH ×3 (08:03→18:46)
[2020-08-09] MEDS: POTASSIUM CHLORIDE ER 20 MEQ TAB.ER PO SCH (08:03)
[2020-08-09] MEDS: FOLIC ACID 1 MG TAB PO SCH (08:03)
[2020-08-09] MEDS: METOPROLOL TARTRATE 25 MG TAB PO SCH (08:03)
[2020-08-09] MEDS: VENLAFAXINE HCL ER 150 MG CAP PO SCH (08:03)
[2020-08-09] MEDS: ZINC SULFATE 220 MG CAP PO SCH (08:04)
[2020-08-09] MEDS: DEXAMETHASONE SOD PHOSPHATE 10 MG/ML 1 ML VIAL IV SCH ×2 (08:14→20:32)
[2020-08-09] MEDS: ENOXAPARIN 30 MG/0.3 ML SYRINGE SQ SCH ×2 (08:14→20:34)
[2020-08-09 09:20] LABS: HCT 50.3 % (37.2-46.3); HGB 15.8 g/dL (12.0-15.0); MCH 31.8 pg (27.0-32.0); MCHC 31.4 g/dL (32.0-37.0); MCV 101.2 fL (80.0-97.0); Mean Platelet Volume 12.7 fL (9.5-12.2); Platelet Count 124 X 10*3/uL (140-440); RBC 4.97 X 10*6/uL (4.10-5.20); WBC 21.71 X 10*3/uL (4.50-10.00)
[2020-08-09 10:15] LABS: African American GFR (CKD) 92.2 (60.0-200.0); Albumin 3.5 g/dL (3.80-4.90); Albumin/Globulin Ratio 1.4 (1.60-3.17); Anion Gap 17.6 mmol/L (4.00-12.00); BUN/Creat Ratio 31.43 Ratio (12.00-20.00); Carbon Dioxide 21.4 mmol/L (21.6-31.8); Globulin 2.5 g/dL (1.6-3.3); Non-African American GFR(CKD) 79.6 (60.0-200.0); Total Bilirubin 0.5 mg/dL (0.3-1.2)
[2020-08-09] MEDS ORDERED: LIDOCAINE 1% INJ 10MG/ML (20 ML MDV) SQ ONE (13:46)
--- NOTE | 2020-08-09 14:48 | IR ---
EXAMINATION TYPE: IR cvc insert >=5 years DATE OF EXAM: 08/09/2020 COMPARISON: NONE HISTORY: Covid infection, needs long-term intravenous access for therapy FINDINGS: Maximal barrier technique was utilized. Hand hygiene obtained with soap and water and alco hol-based hand rub. The skin overlying the left basilic vein was localized with ultrasound and noted to be compressible and patent by ultrasound. An ultrasound image was obtained [facility]. Sterile technique utilized with the ultrasound machine. The skin overlying was prepped an d draped and Lidocaine used for local anesthesia. A skin elsa was made with a scalpel. Access was g ained to the vein under direct ultrasound guidance with a 21-gauge needle and a 0.018 inch wire was a dvanced. Access site was dilated with a peel-away sheath and the catheter tailored to length. Omayra ter advanced centrally and a post procedure chest x-ray verified placement with tip at the superior v bernabe cava. Catheter was fixed to the skin and a sterile dressing placed. Hemostasis achieved and the catheter was aspirated and flushed with sterile saline. The patient remained in stable condition. IMPRESSION: STATUS POST ULTRASOUND GUIDED PICC LINE PLACEMENT, READY FOR USE. THIS PROCEDURE WAS PER FORMED BY THE UNDERSIGNED.
--- NOTE | 2020-08-09 14:53 | P.PN ---
Subjective Progress Note Date: 08/09/20 Principal diagnosis: COVID 19 84-year-old female patient presented to the hospital because of symptoms of weakness and shortness of breath. the patient had a positive COVID-19 test 6 days ago. She was also symptomatic. She days prior to that.She has been COVID- 19 positive and her from complications of COVID-19 infection approximately 4 days ago. The patient has been living alone. She has been quite debilitated and she is not getting around her house and she's been feeling very weak. No complaints of chest pain or abdominal pain or nausea or vomiting or headache or altered mentation. In the emergency, the patient was afebrile. Pulse ox was 92% on 4 L of oxygen by nasal cannula. She looked quite dehydrated and she was started on IV fluids. Blood work showed a white cell count of 8.9 and the patient some lymphopenia. Normal coagulation profile. D-dimer was 9.2. LFTs were abnormal with an AST of 55, ALT of 30, alk phos of 88, LDH was 1671, CRP was 6.7 and COVID-19 was positive. The patient's chest x-ray showed ground glass changes in the right lung and the CAT scan of the chest was also done that showed diffuse ground glass pulmonary infiltrates involving the right lung made in the lung bases addition to some limited change in the left lower lobe. The patient was started on Decadron 6 g IV every 24 hours.she was also started on Decadron 45 mg subcu every 12 hours. She is also on vitamin C, vitamin D and zinc 07/28/2020, the patient is being seen in follow-up. She is sitting in the emergency department and she has moved to a different room. She remains on Decadron 6 mg every 24 hours. She is also on Lovenox 45 mg subcu every 12 hours. Noted the patient was on oxygen at 4 L yesterday and sincethis morning at around 8:00, the patient's oxygen requirements have gradually increased. Currently she is on 15 L of oxygen by nasal cannula. She is feeling slightly more short of breath. She is also more lethargic compared to yesterday. Her LDH level is 04/16/2007 and a CRP level is at 7.6. Electrolytes are all within normal limits. D-dimer from yesterday was 9.24. She continues to have lymphopenia on her white cell count. She is currently on a combination of Decadron and Remdesivir and this is day 2 of treatment. Nevertheless, with increasing oxygen requirements, I think it's highly unlikely the patient is going to respond to Remdesivir and I'm considering starting this medication and often this patient Tocilizumab in conjunction with steroids. 07/29/2020, the patient is slightly worse. She is still on 15 L high flow nasal cannula. She did desaturate on few occasions that she had to be placed on 100% nonrebreather and she was taken off the nonrebreather again. She is on Decadron. She was on Remdesivir and due to her progression, the patient was switched to Tocilizumab 560 mg IV 1.In regards to her blood work, the LDH level is 04/16/2007 with a CRP level of 7.9. Rest of the electrodes are all within normal limits. Her d-dimer earlier was 9.24 and this needs to be repeated. Electrolytes are all within normal limits. She continues to have lymphopenia with a lymphocyte count of 0.8. She is afebrile. Diet is fair and she is eating approximately 50% of her food trays. On 07/30/2020 patient seen in follow-up on medical surgical floor. She is on 15 L high flow nasal cannula in addition to 100% nonrebreather, and her sats are between 91-96%, she is afebrile, hemodynamically stable, she does get short of breath with any exertion, but appears to be in no acute distress, patient did receive a dose of Toci on 07/28/2020, and her Remdesivir was discontinued early in regards to worsening hypoxemia. Today's labs have been reviewed, and today's d-dimer is 11.3, and inflammatory markers are not available for today, pro-Level Was Low at 0.34, Yesterday's Labs Showed Electrolytes and Renal Profile Daily Were Fairly Unremarkable, Patient Remains on IV Decadron 6 Mg Daily, and Lovenox 30 mg twice daily. On 07/31/2020 patient seen in follow-up on medical surgical floor, she still requires high flow oxygen, and she is currently on 15 L high flow nasal cannula and 100% nonrebreather mask, her pulse ox is 88%, she appears to be in no acute distress, she appears very weak, frail, today's is her 's and patient is unable to attend her 's . Afebrile, blood pressure stable. She denies any specific complaints, patient did receive a dose of Toci 07/28/2020, she remains on steroids, despite that her hypoxemia seems to be progressing. Today's labs have been reviewed showing white blood cell count is 7.8, hemoglobin is 14.3, d-dimer is 11.9, electrolytes and renal profile are within normal limits, LDH is down to 539, and CRP is down to 2. On 08/02/1999 the patient seen in follow-up on medical surgical floor. She continues on 15 L high flow and 100% nonrebreather mask, she states she's feeling a little better, she is resting in bed, she is weak, her oral intake is poor, but she denies any worsening dyspnea, and her work of breathing does not seem to be increased. Her pulse ox on 15 L of high flow cannula and NONREBREATHER IS 94%, SHE IS AFEBRILE, HEMODYNAMICALLY SHE STABLE, DENIES ANY CHEST DISCOMFORT. She denies any cough, denies any nausea vomiting or diarrhea, no recent chest x-ray, her d-dimer continues to trend up, and is currently up at 17.04, LDH is 583, and CRP is 1.1. Patient has completed a course of Remdesivir, she was also given Tocilizumab on 07/28/2020 On 08/02/2020 patient is seen in follow-up, still requiring high flow oxygen, with the patient is high flow and percent nonrebreather, her pulse ox is between 85-94%, patient is very weak, fatigued, her oral intake is very poor, the nurse reports that she has not been eating much, she is afebrile, although she denies worsening dyspnea she appears to be debilitated, and weak. Her d-dimer continues to trend up and is currently at 25.71, and CTA chest was completed last night showing no evidence of large central pulmonary embolism, and there was inadequate opacification to assess to subsegmental pulmonary arteries, converted extensive opacities the bilateral lungs consistent with history of COVID-19, lower extremity Dopplers were negative for DVT On 08/03/2020 patient is seen in follow-up. She continues to require 15 L high flow nasal cannula and 100% nonrebreather mask, and her pulse ox of 94%, however most the time her nonrebreather mask is not on her face Perez, she is resting in bed, she appears weak, but appears to be in no respiratory distress, she is afebrile, hemodynamically she is stable, denies any specific complaints, she states that she does not want NG tube inserted, and she is trying to increase her oral intake, and there is half- eaten ice cream at the bedside. No chest discomfort, no cough, no nausea, no new labs today On 08/04/2020 patient seen in follow-up on medical surgical floor, she is currently on 15 L high flow, and her percent nonrebreather, and her pulse oximetry between 90-94%, today she is up in the chair, looks comfortable, she is awake and alert, responds to questions appropriately, denies any worsening dysp kiko, still requiring high flow oxygen, no fever or chills, no headaches, no lightheadedness or dizziness no abdominal pain no nausea vomiting or diarrhea, she refused NG tube and she promised to increase her oral intake, she is tolerating oral diet On 08/06/2020 patient seen in follow-up on medical surgical floor, she is awake and alert, she still requires high flow oxygen at 15 L per high flow nasal cannula and 100% nonrebreather, clinically she does not seem to be more dyspneic, but persistently hypoxic requiring high flow oxygen. She is trying to keep up her oral intake. Today's labs showing white blood cell count of 10.4, hemoglobin is 14, BMP is pending. Echocardiogram showed EF of 55-60%, mild MR, moderate TR, mild to moderate pulmonary hypertension. Patient was seen by cardiology for elevated troponins. Cardiology felt that elevation of troponin was not ischemic in nature. Patient remains on IV Decadron 6 mg daily, she is on Rocephin empirically, and pro-calcitonin is pending, she's had no fever or chills. Blood culture has shown no growth in 24 hour melinda. Last d-dimer yesterday remained elevated at 19.05. She continues on Lovenox 30 mg twice daily On 08/07/2020 patient seen in follow-up on medical surgical floor, she still remains on high flow oxygen 15 L and her percent nonrebreather mask, she is satting around 90%, she states she feels about the same, still short of breath and desaturates with any exertion, she has been on bedrest for the most part, she has refused physical therapy because she feels very weak and fatigued today, she is trying to pop her oral intake, she states she ate have a bagel at breakfast, she is trying to work on the fruit in taken sips of water, her urine appears to be quite dark, and she was advised to keep up her oral intake, she is afebrile, hemodynamically she is stable. Today's labs have been reviewed, showing improving improving d-dimer down to 15.9, pro-calcitonin level came back negative at 0.07, LDH and CRP are pending at this time. She has no specific complaints, no chest pain, no cough. Her mentation is appropriate, she is answering questions appropriately. She's had no fever or chills overnight On 08/08/2020 patient seen in follow-up on medical surgical floor, she is more dyspneic today, and this morning she had episode of desaturation while being at rest and on 15 L high flow and 100% nonrebreather mask, it took a while to recover, and currently her O2 saturations are ranging between 82-89% at the highest, and patient is more tachypneic on today's exam, she she feels more short of breath, still requiring high flow oxygen, she is afebrile, follow-up chest x-ray showed diffuse mixed interstitial and alveolar infiltrates. Patient has IV fluids infusing at a rate of 75 ML per hour, today's labs have been reviewed, showing white blood cell, 13.2, hemoglobin of 14.4, d-dimer is 15.03, potassium is 3.3, BUN was 15 and creatinine was 0.4. SHe denies chest pain, seems to be tachypneic and short of breath. On 08/09/2020 patient seen in follow-up on medical surgical floor, yesterday she was placed on BiPAP support currently with pressures of 14/8 and FiO2 of 100% because of worsening hypoxia and worsening dyspnea, she has remained on BiPAP support since, she is tolerating it poorly, she is anxious, she was given doses of Ativan and morphine, however states still tachypneic, she is tachycardic, not tolerating it well, her pulse ox is a 85-86%, although her tidal volume is are great, and she is achieving 7-800 mL tidal volume. Sounds are positive for diffuse crackles, she's been afebrile, we gave her a dose of Lasix for possibility of fluid overload. Patient has diuresed nurse feels that he did improve her breathing somewhat, she is in -500 mL fluid balance. Today's labs have been reviewed, her white count cell has increased to 21.7, hemoglobin is 15.8, d-dimer still elevated to 14.3, sodium is 146, potassium is 4.0, chloride is 107, CO2 is 21.4, BUN of 22 creatinine 0.7, AST is 50, ALT is 37, alk phos was 198. Patient remains on IV Decadron 6 mg twice daily, she is on empiric antibiotics in the form of ceftriaxone, blood cultures have shown no growth. Patient has not been able to take in much by mouth related to continuous BiPAP support in last 24 hours. Her daughter is at the bedside, she was updated on patient's condition, in her daughter is aware that her mother wished to be a DO NOT RESUSCITATE, and at this time we will continue supportive care Objective - Vital Signs Vital signs: Vital Signs Temp 97.5 F L 08/09/20 10:00 Pulse 126 H 08/09/20 10:00 Resp 22 08/09/20 10:00 BP 127/86 08/09/20 10:00 Pulse Ox 85 L 08/09/20 10:00 Intake & Output 08/08/20 08/09/20 08/09/20 18:59 06:59 18:59 Intake Total 250 250 500 Output Total 650 350 Balance -400 -100 500 Weight 71.5 kg Intake: Oral 250 250 500 Output: Urine 650 350 Other: Voiding Method Diaper Diaper Diaper Incontinent Incontinent Incontinent External Catheter External Catheter External Catheter - Exam GENERAL EXAM: Alert, very pleasant, white female, on BiPAP support with pressures of 14/8 and FiO2 of 100%, her pulse ox is 85-86%, and patient is anxious, tachypneic, although her tidal volumes are 700-800 on the BiPAP EYES: Normal reaction of pupils, equal size. Conjunctiva pink, sclera white. NOSE: Clear with pink turbinates. THROAT: No erythema or exudates. NECK: No masses, no JVD, no thyroid enlargement, no adenopathy. CHEST: No chest wall deformity. Symmetrical expansion. LUNGS: Equal air entry with no crackles, wheeze, rhonchi or dullness. CVS: Regular rate and rhythm, normal S1 and S2, no gallops, no murmurs, no rubs ABDOMEN: Soft, nontender. No hepatosplenomegaly, normal bowel sounds, no guarding or rigidity. EXTREMITIES: No clubbing, no edema, no cyanosis, 2+ pulses and upper and lower extremities. MUSCULOSKELETAL: Muscle strength and tone normal. SPINE: No scoliosis or deformity SKIN: No rashes CENTRAL NERVOUS SYSTEM: Alert and oriented -3. No focal deficits, tone is normal in all 4 extremities. PSYCHIATRIC: Alert and oriented -3. Appropriate affect. Intact judgment and insight. - Labs CBC & Chem 7: 08/09/20 06:12 08/09/20 06:12 Labs: Abnormal Lab Results - Last 24 Hours (Table) 08/08/20 08/09/20 08/09/20 Range/Units 16:57 06:12 06:12 WBC 21.71 H (4.50-10.00) X 10*3/uL Hgb 15.8 H (12.0-15.0) g/dL Hct 50.3 H (37.2-46.3) % MCV 101.2 H (80.0-97.0) fL MCHC 31.4 L (32.0-37.0) g/dL RDW 15.0 H (11.5-14.5) % Plt Count 124 L (140-440) X 10*3/uL MPV 12.7 H (9.5-12.2) fL D-Dimer 14.32 H (<0.60) mg/L FEU Sodium (135-145) mmol/L Carbon Dioxide (21.6-31.8) mmol/L Anion Gap (4.00-12.00) mmol/L BUN/Creatinine Ratio (12.00-20.00) Ratio Glucose 199 H (74-99) mg/dL AST (13-35) U/L Alkaline Phosphatase (41-126) U/L Total Protein (6.2-8.2) g/dL Albumin (3.80-4.90) g/dL Albumin/Globulin Ratio (1.60-3.17) g/dL 08/09/20 Range/Units 06:12 WBC (4.50-10.00) X 10*3/uL Hgb (12.0-15.0) g/dL Hct (37.2-46.3) % MCV (80.0-97.0) fL MCHC (32.0-37.0) g/dL RDW (11.5-14.5) % Plt Count (140-440) X 10*3/uL MPV (9.5-12.2) fL D-Dimer (<0.60) mg/L FEU Sodium 146 H (135-145) mmol/L Carbon Dioxide 21.4 L (21.6-31.8) mmol/L Anion Gap 17.60 H (4.00-12.00) mmol/L BUN/Creatinine Ratio 31.43 H (12.00-20.00) Ratio Glucose 195 H (74-99) mg/dL AST 50 H (13-35) U/L Alkaline Phosphatase 198 H (41-126) U/L Total Protein 6.0 L (6.2-8.2) g/dL Albumin 3.50 L (3.80-4.90) g/dL Albumin/Globulin Ratio 1.40 L (1.60-3.17) g/dL Microbiology - Last 24 Hours (Table) 08/05/20 14:27 Blood Culture - Preliminary Blood No Growth after 72 hours Assessment and Plan Plan: Assessment: #1. Acute COVID-19 related pneumonia with extensive groundglass changes involving the right lung mainly in the right lower lobe. D-dimer is elevated. Patient has been symptomatic for at least 6-7 days. She says possible COVID-19 approximately 6 days ago. She is presented with worsening shortness of breath and generalized weakness. She initially was on 3 L of oxygen by nasal cannula and her oxygen requirements progressively went up and currently is on a liters. Based on that, I kept on Decadron, discontinue the Remdesivir gave her Tocilizumab , 560 mg IV 1. On today's evaluation, the patient remains on 15 L of oxygen by nasal cannula. No significant change in her condition. Oxygenation remains borderline with the patient is still requiring on and off facemask to supplemented oxygen especially when she desaturates. Patient was placed on BiPAP support on 08/08/2020 #2. acute hypoxic respiratory failure currently on 15 L by nasal cannula and 100% nonrebreather mask #3. known history of coronary artery disease with previous stenting of the LAD, currently inactive in stable #4. history of Sjogren's disease/lupus #5. remote history of DVT of the lower extremity #6. osteoarthritis #7. hypertension #8. hypothyroidism #9. history of TIA without any residual deficits Plan: We will give the patient a trial of Airvo, titrate the FiO2 to keep O2 sats at or above 90% She is not tolerating BiPAP very well despite being given anxiolytics and morphine Continue current dose Decadron Continue Lovenox Today's labs have been reviewed Rule out possibility of sepsis, send blood cultures, urine cultures and pro-calcitonin We will obtain a PICC line possibility of TPN initiation of the patient is unable to sustain her oral nutrition Her condition was discussed with her daughter who is at the bedside Continue supportive care, CODE STATUS is DO NOT RESUSCITATE Overall prognosis is guarded I performed a history & physical examination of the patient and discussed their management with my nurse practitioner, Phyllis Zaidi. I reviewed the nurse practitioner's note and agree with the documented findings and plan of care. Lung sounds are positive for diffuse crackles. The findings and the impression was discussed with the patient. I attest to the documentation by the nurse practitioner. Time with Patient: Less than 30
--- NOTE | 2020-08-09 15:07 | XR ---
EXAMINATION TYPE: XR chest 1V confirm line [facility] DATE OF EXAM: 08/09/2020 COMPARISON: 08/08/2020 HISTORY: PICC line placement TECHNIQUE: Single frontal view of the chest is obtained. FINDINGS: Diffuse interstitial pattern with basilar consolidation and small effusion. Heart enlarged . Atherosclerotic change aorta. Left-sided PICC line seen with tip overlying the SVC. Lung apices not included. IMPRESSION: 1. PICC line in good position. 2. Diffuse interstitial and alveolar infiltrate stable.
[2020-08-09 17:17] LABS: Appearance,Urine Clear (Clear); Bacteria,Urine Rare /hpf; Bilirubin,Urine Negative (Negative); Blood,Urine Moderate (Negative); Color,Urine Yellow; Glucose,Urine (UA) Negative (Negative); Hyaline Casts,Urine 37 /lpf (0-2); Ketones,Urine 2+ (Negative); Leukocyte Esterase,Urine Negative (Negative); Mucus,Urine Occasional /hpf; Nitrite,Urine Negative (Negative); PH, Urine 5.5 (5.0-8.0); Protein,Urine 1+ (Negative); RBC,Urine 34 /hpf (0-5); Specific Gravity,Urine 1.027 (1.001-1.035); Squamous Epithelial Cell,Urine <1 /hpf (0-4); Urobilinogen,Urine <2.0 mg/dL (<2.0); WBC,Urine 11 /hpf (0-5); White Blood Cell Casts,Urine 3 /lpf (0)
[2020-08-09] MEDS: ATORVASTATIN 20 MG TAB PO SCH (18:46)
--- NOTE | 2020-08-09 23:38 | P.PN ---
Subjective Principal diagnosis: The patient is here admitted for Covid pneumonia. 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 She is responding poorly at this point. Appreciate pulmonology input. The patient was examined but is difficult to arouse. No new voiding difficulties. We talked about what her life expectation should be now that her this past. Increase by mouth intake. I have reiterated to the patient appropriate by mouth intake. The patient seems more fatigue. Question element of comfort care. Objective - Vital Signs Vital signs: Vital Signs Temp 96.8 F L 08/09/20 21:17 Pulse 95 08/09/20 21:17 Resp 20 08/09/20 21:17 BP 98/37 08/09/20 21:17 Pulse Ox 86 L 08/09/20 21:17 Intake & Output 08/09/20 08/09/20 08/10/20 06:59 18:59 06:59 Intake Total 250 500 Output Total 350 300 Balance -100 200 Weight 71.5 kg Intake: Oral 250 500 Output: Urine 350 300 Other: Voiding Method Diaper Diaper Diaper Incontinent Incontinent Incontinent External Catheter External Catheter External Catheter - Constitutional General appearance: Present: mild distress - EENT Eyes: Absent: abnormal pupil - Neck Neck: Absent: lymphadenopathy - Respiratory Respiratory: bilateral: diminished - Cardiovascular Rhythm: regular Heart sounds: normal: S1, S2 Abnormal Heart Sounds: Absent: S3 Gallop - Gastrointestinal General gastrointestinal: Present: soft - Integumentary Integumentary: Absent: cellulitis - Labs CBC & Chem 7: 08/09/20 06:12 08/09/20 06:12 Labs: Abnormal Lab Results - Last 24 Hours (Table) 08/09/20 08/09/20 08/09/20 Range/Units 06:12 06:12 06:12 WBC 21.71 H (4.50-10.00) X 10*3/uL Hgb 15.8 H (12.0-15.0) g/dL Hct 50.3 H (37.2-46.3) % MCV 101.2 H (80.0-97.0) fL MCHC 31.4 L (32.0-37.0) g/dL RDW 15.0 H (11.5-14.5) % Plt Count 124 L (140-440) X 10*3/uL MPV 12.7 H (9.5-12.2) fL D-Dimer 14.32 H (<0.60) mg/L FEU Sodium 146 H (135-145) mmol/L Carbon Dioxide 21.4 L (21.6-31.8) mmol/L Anion Gap 17.60 H (4.00-12.00) mmol/L BUN/Creatinine Ratio 31.43 H (12.00-20.00) Ratio Glucose 195 H (70-110) mg/dL AST 50 H (13-35) U/L Alkaline Phosphatase 198 H (41-126) U/L Total Protein 6.0 L (6.2-8.2) g/dL Albumin 3.50 L (3.80-4.90) g/dL Albumin/Globulin Ratio 1.40 L (1.60-3.17) g/dL Procalcitonin (0.02-0.09) ng/mL Urine Protein (Negative) Urine Ketones (Negative) Urine Blood (Negative) Urine RBC (0-5) /hpf Urine WBC (0-5) /hpf Urine Bacteria (None) /hpf Hyaline Casts (0-2) /lpf Urine Mucus (None) /hpf 08/09/20 08/09/20 Range/Units 13:10 16:00 WBC (4.50-10.00) X 10*3/uL Hgb (12.0-15.0) g/dL Hct (37.2-46.3) % MCV (80.0-97.0) fL MCHC (32.0-37.0) g/dL RDW (11.5-14.5) % Plt Count (140-440) X 10*3/uL MPV (9.5-12.2) fL D-Dimer (<0.60) mg/L FEU Sodium (135-145) mmol/L Carbon Dioxide (21.6-31.8) mmol/L Anion Gap (4.00-12.00) mmol/L BUN/Creatinine Ratio (12.00-20.00) Ratio Glucose (70-110) mg/dL AST (13-35) U/L Alkaline Phosphatase (41-126) U/L Total Protein (6.2-8.2) g/dL Albumin (3.80-4.90) g/dL Albumin/Globulin Ratio (1.60-3.17) g/dL Procalcitonin 0.13 H (0.02-0.09) ng/mL Urine Protein 1+ H (Negative) Urine Ketones 2+ H (Negative) Urine Blood Moderate H (Negative) Urine RBC 34 H (0-5) /hpf Urine WBC 11 H (0-5) /hpf Urine Bacteria Rare H (None) /hpf Hyaline Casts 37 H (0-2) /lpf Urine Mucus Occasional H (None) /hpf Microbiology - Last 24 Hours (Table) 08/05/20 14:27 Blood Culture - Preliminary Blood No Growth after 96 hours Assessment and Plan (1) COVID-19 Current Visit: Yes Status: Acute Code(s): U07.1 - COVID-19 SNOMED Code(s): 612157759 (2) Dehydration Current Visit: Yes Status: Acute Code(s): E86.0 - DEHYDRATION SNOMED Code(s): 66835090 (3) Urinary tract infection Current Visit: Yes Status: Acute Code(s): N39.0 - URINARY TRACT INFECTION, S ITE NOT SPECIFIED SNOMED Code(s): 39154955 (4) Grief Current Visit: Yes Status: Acute Code(s): F43.21 - ADJUSTMENT DISORDER WITH DEPRESSED MOOD SNOMED Code(s): 437131548 (5) Hypoxia Current Visit: Yes Status: Acute Code(s): R09.02 - HYPOXEMIA SNOMED Code(s): 264849103 (6) Chronic fatigue Current Visit: Yes Status: Acute Code(s): R53.82 - CHRONIC FATIGUE, UNSPECIFIED SNOMED Code(s): 67818534 Plan: Her prognosis seems to be becoming worse. Check CBC and CMP in a.m. Appreciate pulmonology input. See orders otherwise. Time with Patient: Less than 30
[2020-08-10] MEDS: MORPHINE SULFATE 4 MG/ML SYRINGE IVP PRN ×4 (01:10→15:37)
[2020-08-10] MEDS: ASCORBIC ACID 500 MG TAB PO SCH (07:35)
[2020-08-10] MEDS: PANTOPRAZOLE 40 MG TABLET PO SCH (07:35)
[2020-08-10] MEDS: ASPIRIN 81 MG PO SCH (07:35)
[2020-08-10] MEDS: CEVIMELINE 30 MG CAP PO SCH (07:35)
[2020-08-10] MEDS: POTASSIUM CHLORIDE ER 20 MEQ TAB.ER PO SCH (07:36)
[2020-08-10] MEDS: FOLIC ACID 1 MG TAB PO SCH (07:36)
[2020-08-10] MEDS: VENLAFAXINE HCL ER 150 MG CAP PO SCH (07:36)
[2020-08-10] MEDS: CHOLECALCIFEROL 25 MCG (1000 IU) TABLET PO SCH (07:36)
[2020-08-10] MEDS: METOPROLOL TARTRATE 25 MG TAB PO SCH (07:36)
[2020-08-10] MEDS: GABAPENTIN 400 MG CAP PO SCH (07:36)
[2020-08-10] MEDS: ZINC SULFATE 220 MG CAP PO SCH (07:37)
[2020-08-10] MEDS: DEXAMETHASONE SOD PHOSPHATE 10 MG/ML 1 ML VIAL IV SCH (07:39)
[2020-08-10] MEDS: ENOXAPARIN 30 MG/0.3 ML SYRINGE SQ SCH (07:39)
[2020-08-10 10:55] VITALS: BP 90/52; PULSE 65; RESP 22; TEMP 97.5
[2020-08-10 13:03] VITALS: BMI 28.7
--- NOTE | 2020-08-10 13:05 | P.PN ---
Subjective Progress Note Date: 08/10/20 Principal diagnosis: COVID 19 84-year-old female patient presented to the hospital because of symptoms of weakness and shortness of breath. the patient had a positive COVID-19 test 6 days ago. She was also symptomatic. She days prior to that.She has been COVID- 19 positive and her from complications of COVID-19 infection approximately 4 days ago. The patient has been living alone. She has been quite debilitated and she is not getting around her house and she's been feeling very weak. No complaints of chest pain or abdominal pain or nausea or vomiting or headache or altered mentation. In the emergency, the patient was afebrile. Pulse ox was 92% on 4 L of oxygen by nasal cannula. She looked quite dehydrated and she was started on IV fluids. Blood work showed a white cell count of 8.9 and the patient some lymphopenia. Normal coagulation profile. D-dimer was 9.2. LFTs were abnormal with an AST of 55, ALT of 30, alk phos of 88, LDH was 1671, CRP was 6.7 and COVID-19 was positive. The patient's chest x-ray showed ground glass changes in the right lung and the CAT scan of the chest was also done that showed diffuse ground glass pulmonary infiltrates involving the right lung made in the lung bases addition to some limited change in the left lower lobe. The patient was started on Decadron 6 g IV every 24 hours.she was also started on Decadron 45 mg subcu every 12 hours. She is also on vitamin C, vitamin D and zinc 07/28/2020, the patient is being seen in follow-up. She is sitting in the emergency department and she has moved to a different room. She remains on Decadron 6 mg every 24 hours. She is also on Lovenox 45 mg subcu every 12 hours. Noted the patient was on oxygen at 4 L yesterday and sincethis morning at around 8:00, the patient's oxygen requirements have gradually increased. Currently she is on 15 L of oxygen by nasal cannula. She is feeling slightly more short of breath. She is also more lethargic compared to yesterday. Her LDH level is 04/16/2007 and a CRP level is at 7.6. Electrolytes are all within normal limits. D-dimer from yesterday was 9.24. She continues to have lymphopenia on her white cell count. She is currently on a combination of Decadron and Remdesivir and this is day 2 of treatment. Nevertheless, with increasing oxygen requirements, I think it's highly unlikely the patient is going to respond to Remdesivir and I'm considering starting this medication and often this patient Tocilizumab in conjunction with steroids. 07/29/2020, the patient is slightly worse. She is still on 15 L high flow nasal cannula. She did desaturate on few occasions that she had to be placed on 100% nonrebreather and she was taken off the nonrebreather again. She is on Decadron. She was on Remdesivir and due to her progression, the patient was switched to Tocilizumab 560 mg IV 1.In regards to her blood work, the LDH level is 04/16/2007 with a CRP level of 7.9. Rest of the electrodes are all within normal limits. Her d-dimer earlier was 9.24 and this needs to be repeated. Electrolytes are all within normal limits. She continues to have lymphopenia with a lymphocyte count of 0.8. She is afebrile. Diet is fair and she is eating approximately 50% of her food trays. On 07/30/2020 patient seen in follow-up on medical surgical floor. She is on 15 L high flow nasal cannula in addition to 100% nonrebreather, and her sats are between 91-96%, she is afebrile, hemodynamically stable, she does get short of breath with any exertion, but appears to be in no acute distress, patient did receive a dose of Toci on 07/28/2020, and her Remdesivir was discontinued early in regards to worsening hypoxemia. Today's labs have been reviewed, and today's d-dimer is 11.3, and inflammatory markers are not available for today, pro-Level Was Low at 0.34, Yesterday's Labs Showed Electrolytes and Renal Profile Daily Were Fairly Unremarkable, Patient Remains on IV Decadron 6 Mg Daily, and Lovenox 30 mg twice daily. On 07/31/2020 patient seen in follow-up on medical surgical floor, she still requires high flow oxygen, and she is currently on 15 L high flow nasal cannula and 100% nonrebreather mask, her pulse ox is 88%, she appears to be in no acute distress, she appears very weak, frail, today's is her 's and patient is unable to attend her 's . Afebrile, blood pressure stable. She denies any specific complaints, patient did receive a dose of Toci 07/28/2020, she remains on steroids, despite that her hypoxemia seems to be progressing. Today's labs have been reviewed showing white blood cell count is 7.8, hemoglobin is 14.3, d-dimer is 11.9, electrolytes and renal profile are within normal limits, LDH is down to 539, and CRP is down to 2. On 08/02/1999 the patient seen in follow-up on medical surgical floor. She continues on 15 L high flow and 100% nonrebreather mask, she states she's feeling a little better, she is resting in bed, she is weak, her oral intake is poor, but she denies any worsening dyspnea, and her work of breathing does not seem to be increased. Her pulse ox on 15 L of high flow cannula and NONREBREATHER IS 94%, SHE IS AFEBRILE, HEMODYNAMICALLY SHE STABLE, DENIES ANY CHEST DISCOMFORT. She denies any cough, denies any nausea vomiting or diarrhea, no recent chest x-ray, her d-dimer continues to trend up, and is currently up at 17.04, LDH is 583, and CRP is 1.1. Patient has completed a course of Remdesivir, she was also given Tocilizumab on 07/28/2020 On 08/02/2020 patient is seen in follow-up, still requiring high flow oxygen, with the patient is high flow and percent nonrebreather, her pulse ox is between 85-94%, patient is very weak, fatigued, her oral intake is very poor, the nurse reports that she has not been eating much, she is afebrile, although she denies worsening dyspnea she appears to be debilitated, and weak. Her d-dimer continues to trend up and is currently at 25.71, and CTA chest was completed last night showing no evidence of large central pulmonary embolism, and there was inadequate opacification to assess to subsegmental pulmonary arteries, converted extensive opacities the bilateral lungs consistent with history of COVID-19, lower extremity Dopplers were negative for DVT On 08/03/2020 patient is seen in follow-up. She continues to require 15 L high flow nasal cannula and 100% nonrebreather mask, and her pulse ox of 94%, however most the time her nonrebreather mask is not on her face Perez, she is resting in bed, she appears weak, but appears to be in no respiratory distress, she is afebrile, hemodynamically she is stable, denies any specific complaints, she states that she does not want NG tube inserted, and she is trying to increase her oral intake, and there is half- eaten ice cream at the bedside. No chest discomfort, no cough, no nausea, no new labs today On 08/04/2020 patient seen in follow-up on medical surgical floor, she is currently on 15 L high flow, and her percent nonrebreather, and her pulse oximetry between 90-94%, today she is up in the chair, looks comfortable, she is awake and alert, responds to questions appropriately, denies any worsening dysp kiko, still requiring high flow oxygen, no fever or chills, no headaches, no lightheadedness or dizziness no abdominal pain no nausea vomiting or diarrhea, she refused NG tube and she promised to increase her oral intake, she is tolerating oral diet On 08/06/2020 patient seen in follow-up on medical surgical floor, she is awake and alert, she still requires high flow oxygen at 15 L per high flow nasal cannula and 100% nonrebreather, clinically she does not seem to be more dyspneic, but persistently hypoxic requiring high flow oxygen. She is trying to keep up her oral intake. Today's labs showing white blood cell count of 10.4, hemoglobin is 14, BMP is pending. Echocardiogram showed EF of 55-60%, mild MR, moderate TR, mild to moderate pulmonary hypertension. Patient was seen by cardiology for elevated troponins. Cardiology felt that elevation of troponin was not ischemic in nature. Patient remains on IV Decadron 6 mg daily, she is on Rocephin empirically, and pro-calcitonin is pending, she's had no fever or chills. Blood culture has shown no growth in 24 hour melinda. Last d-dimer yesterday remained elevated at 19.05. She continues on Lovenox 30 mg twice daily On 08/07/2020 patient seen in follow-up on medical surgical floor, she still remains on high flow oxygen 15 L and her percent nonrebreather mask, she is satting around 90%, she states she feels about the same, still short of breath and desaturates with any exertion, she has been on bedrest for the most part, she has refused physical therapy because she feels very weak and fatigued today, she is trying to pop her oral intake, she states she ate have a bagel at breakfast, she is trying to work on the fruit in taken sips of water, her urine appears to be quite dark, and she was advised to keep up her oral intake, she is afebrile, hemodynamically she is stable. Today's labs have been reviewed, showing improving improving d-dimer down to 15.9, pro-calcitonin level came back negative at 0.07, LDH and CRP are pending at this time. She has no specific complaints, no chest pain, no cough. Her mentation is appropriate, she is answering questions appropriately. She's had no fever or chills overnight On 08/08/2020 patient seen in follow-up on medical surgical floor, she is more dyspneic today, and this morning she had episode of desaturation while being at rest and on 15 L high flow and 100% nonrebreather mask, it took a while to recover, and currently her O2 saturations are ranging between 82-89% at the highest, and patient is more tachypneic on today's exam, she she feels more short of breath, still requiring high flow oxygen, she is afebrile, follow-up chest x-ray showed diffuse mixed interstitial and alveolar infiltrates. Patient has IV fluids infusing at a rate of 75 ML per hour, today's labs have been reviewed, showing white blood cell, 13.2, hemoglobin of 14.4, d-dimer is 15.03, potassium is 3.3, BUN was 15 and creatinine was 0.4. SHe denies chest pain, seems to be tachypneic and short of breath. On 08/09/2020 patient seen in follow-up on medical surgical floor, yesterday she was placed on BiPAP support currently with pressures of 14/8 and FiO2 of 100% because of worsening hypoxia and worsening dyspnea, she has remained on BiPAP support since, she is tolerating it poorly, she is anxious, she was given doses of Ativan and morphine, however states still tachypneic, she is tachycardic, not tolerating it well, her pulse ox is a 85-86%, although her tidal volume is are great, and she is achieving 7-800 mL tidal volume. Sounds are positive for diffuse crackles, she's been afebrile, we gave her a dose of Lasix for possibility of fluid overload. Patient has diuresed nurse feels that he did improve her breathing somewhat, she is in -500 mL fluid balance. Today's labs have been reviewed, her white count cell has increased to 21.7, hemoglobin is 15.8, d-dimer still elevated to 14.3, sodium is 146, potassium is 4.0, chloride is 107, CO2 is 21.4, BUN of 22 creatinine 0.7, AST is 50, ALT is 37, alk phos was 198. Patient remains on IV Decadron 6 mg twice daily, she is on empiric antibiotics in the form of ceftriaxone, blood cultures have shown no growth. Patient has not been able to take in much by mouth related to continuous BiPAP support in last 24 hours. Her daughter is at the bedside, she was updated on patient's condition, in her daughter is aware that her mother wished to be a DO NOT RESUSCITATE, and at this time we will continue supportive care On 08/10/2020 patient seen in follow-up on medical surgical floor. Patient is poorly responsive today, she is still on BiPAP support with pressures of 14/8 and FiO2 of 100%, the BiPAP mask as half of her face. Her oral membranes are extremely dry, patient does not open eyes to command, appears dyspneic. Her condition continued to deteriorate and more significantly in the last 48 hours, her mentation has deteriorated, she is not currently opening eyes to voice. Patient's family apparently have been updated, social worker school has updated them as well and comfort care nurse were discussed with the patient's family. Nursing staff stated that patient is on comfort care protocol right now, and TPN was st ill being considered, however her condition seems to be progressively worse, and patient is not expected to survive for a long period of time, and at this time TPN would not be advisable for risk of pulmonary congestion and increased dyspnea Objective - Vital Signs Vital signs: Vital Signs Temp 97.5 F L 08/10/20 10:00 Pulse 65 08/10/20 10:00 Resp 22 08/10/20 10:00 BP 90/52 08/10/20 10:00 Pulse Ox 90 L 08/10/20 10:00 Intake & Output 08/09/20 08/10/20 08/10/20 18:59 06:59 18:59 Intake Total 500 Output Total 300 250 Balance 200 -250 Weight 73.5 kg Intake: Oral 500 Output: Urine 300 250 Other: Voiding Method Diaper Diaper Incontinent Incontinent External Catheter External Catheter - Exam GENERAL EXAM: Poorly responsive, white female, on BiPAP support with pressures of 14/8 and FiO2 of 100%, her pulse ox is 100% and patient is very much obtunded, dyspnea, and comfort care measures are pending per patient's and her family wishes EYES: Normal reaction of pupils, equal size. Conjunctiva pink, sclera white. NOSE: Clear with pink turbinates. THROAT: No erythema or exudates. NECK: No masses, no JVD, no thyroid enlargement, no adenopathy. CHEST: No chest wall deformity. Symmetrical expansion. LUNGS: Equal air entry with no crackles, wheeze, rhonchi or dullness. CVS: Regular rate and rhythm, normal S1 and S2, no gallops, no murmurs, no rubs ABDOMEN: Soft, nontender. No hepatosplenomegaly, normal bowel sounds, no guarding or rigidity. EXTREMITIES: No clubbing, no edema, no cyanosis, 2+ pulses and upper and lower extremities. MUSCULOSKELETAL: Muscle strength and tone normal. SPINE: No scoliosis or deformity SKIN: No rashes CENTRAL NERVOUS SYSTEM: Obtunded, poorly responsive No focal deficits, tone is normal in all 4 extremities. - Labs CBC & Chem 7: 08/09/20 06:12 08/09/20 06:12 Labs: Abnormal Lab Results - Last 24 Hours (Table) 08/09/20 08/09/20 Range/Units 13:10 16:00 Procalcitonin 0.13 H (0.02-0.09) ng/mL Urine Protein 1+ H (Negative) Urine Ketones 2+ H (Negative) Urine Blood Moderate H (Negative) Urine RBC 34 H (0-5) /hpf Urine WBC 11 H (0-5) /hpf Urine Bacteria Rare H (None) /hpf Hyaline Casts 37 H (0-2) /lpf Urine Mucus Occasional H (None) /hpf Microbiology - Last 24 Hours (Table) 08/09/20 16:00 Urine Culture - Preliminary Urine,Clean Catch 08/05/20 14:27 Blood Culture - Preliminary Blood No Growth after 96 hours Assessment and Plan Plan: Assessment: #1. Acute COVID-19 related pneumonia with extensive groundglass changes involving the right lung mainly in the right lower lobe. D-dimer is elevated. Patient has been symptomatic for at least 6-7 days. She says possible COVID-19 approximately 6 days ago. She is presented with worsening shortness of breath and generalized weakness. She initially was on 3 L of oxygen by nasal cannula and her oxygen requirements progressively went up and currently is on a liters. Based on that, I kept on Decadron, discontinue the Remdesivir gave her Tocilizumab , 560 mg IV 1. On today's evaluation, the patient remains on 15 L of oxygen by nasal cannula. No significant change in her condition. Oxy genation remains borderline with the patient is still requiring on and off facemask to supplemented oxygen especially when she desaturates. Patient was placed on BiPAP support on 08/08/2020 #2. acute hypoxic respiratory failure currently on 15 L by nasal cannula and 100% nonrebreather mask #3. known history of coronary artery disease with previous stenting of the LAD, currently inactive in stable #4. history of Sjogren's disease/lupus #5. remote history of DVT of the lower extremity #6. osteoarthritis #7. hypertension #8. hypothyroidism #9. history of TIA without any residual deficits Plan: Patient's condition has significantly deteriorated, and comfort care discussed with the family Comfort care protocol was apparently initiated Remove BiPAP support placed the patient on simple face mask or nasal cannula May titrate oxygen for comfort May use Morphine and Ativan as needed for anxiety, pain and breathlessness Do not recommend starting TPN, patient may end up with more pulmonary congestion and more dyspnea Pulmonary/critical care service will sign of I performed a history & physical examination of the patient and discussed their management with my nurse practitioner, Phyllis Zaidi. I reviewed the nurse practitioner's note and agree with the documented findings and plan of care. Lung sounds are positive for diffuse crackles. The findings and the impression was discussed with the patient. I attest to the documentation by the nurse practitioner. Time with Patient: Less than 30
--- NOTE | 2020-08-21 11:59 | CDI ---
Documentation Clarification Form Date: 08/21/2020 11:40:29 AM From: Jyothi OliverNagelLAURY daniel, CCDS Admit Date: 07/27/2020 04:51:00 PM Patient Name: Tamia Mcnair Visit Number: [id number] Discharge Date: 08/10/2020 07:20:00 PM ATTENTION: The Clinical Documentation Specialists (CDI) and [facility] Coding Staff appreciate your assistance in clarifying documentation. Please respond to the clarification below the line at the bottom and electronically sign. The CDI & [facility] Coding staff will review the response and follow-up if needed. Please note: Queries are made part of the Legal Health Record. If you have any questions, please contact the author of this message via ITS. Dr. Edgardo Rios: The patient presented with the following clinical indicators: COVID 19 Positive, Pneumonia, UTI & Hypoxia. Per the 08/05 Attending Progress Note: Possible Sepsis with Hypotension. Per the 08/09 Pulmonary Progress Note: Rule out possibility of Sepsis. Additional clarification regarding the etiology/cause of the clinical indicators is requested. History/Risk Factors per the 07/27 History & Physical: TIA, DVT, GERD, Hypertension, Osteoarthritis, Hypothyroid, Sjogren's, Lupus, CAD status post Heart Catheterization with stent. Former smoker. Clinical Indicators: Presented to the ED with SOB, weakness & COVID Positive. Patient's passed 4 days prior from COVID 19. ED Clinical Impression: COVID 19, UTI, Hypoxia, Dehydration & Prolonged QT interval on EKG. 07/27 VS: T 97.0, P 79, R 20, BP 103/69, PO 80 RA - 94 15% nrb, BMI 28.7 07/27 LAB: WBC 8.9, Neut 8.2, Lymph 0.6, D Dimer 9.24, Ferritin 982.2, LDH 1671, CRP 6.7, Albumin 3.4, Procalcitonin 0.34 07/27 COVID: Positive. 07/27 CXR: COPD with worsening groundglass infiltrate in the right lung and worsening left basilar infiltrate. 07/27 CT Chest: Negative for PE 08/05 VS: T 96.6, P 75, R 20 (sob), BP 122/74, PO 94 high flow 15% 08/05 LAB: WBC 13.4, Pl Ct 113, Neut 12.2, Lymph 0.5, D Dimer 19.05, Lactic Acid 4.0 - 2.5 - 3.1; Alk Phos 130, Troponin 0.236, 0.223; Total Protein 6.1, Albumin 3.1 08/05 CXR: There is increased pulmonary interstitial pneumonia compared to recent exam. Treatment 07/27: IV fluid 1,000 mls @ 75 mls/hr q13H, po Tylenol, IV Remdesivir, Lovenox sq. 07/28: IV Decadron, IV Protonix, IV Actemra 08/04: Vit C, Vit D3, Orazinc 08/05 IV fluid 500 mls @ 999 mls/hr q31M, IV Rocephin In your professional opinion, please clarify if these findings signify one of the following conditions: [ ] Sepsis POA, please specify cause: [ ] Sepsis, Not POA, please specify cause: [ ] Sepsis ruled out [ ] Severe Sepsis with organ failure [ x ] Septic Shock [ ] Other, please specify [ ] Unable to determine (Template Last Reviewed: May 2020) MTDD
--- NOTE | 2020-08-28 17:56 | P.DS ---
Providers Date of admission: 07/27/20 16:51 Attending physician: Edgardo Rios Consults: 07/27/20 18:09 Consult Physician Routine Consulting Provider: Jarvis Wood Consult Reason/Comments: COVID+, hypoxia Do you want consulting provider notified?: Yes 08/05/20 15:08 Consult Physician Stat Consulting Provider: Luis Enrique Alvares Consult Reason/Comments: elevated trops Do you want consulting provider notified?: Yes Primary care physician: Edgardo Rios - Discharge Diagnosis(es) (1) COVID-19 Status: Acute (2) Dehydration Status: Acute (3) Urinary tract infection Status: Acute (4) Grief Status: Acute (5) Hypoxia Status: Acute (6) Chronic fatigue Status: Acute Hospital Course: This is discharge/ summary an 84-year-old white female essentially admitted for respiratory distress and hypoxia related to bilateral Covid 19 pneumonia. She was attempted to be stabilized but continued to have respiratory failure. After discussion with her family, it was felt that she should be kept on comfort measures. Her had recently 3 weeks prior. She was placed on comfort measures and that within 24 hours in no perceived discomfort. Plan - Discharge Summary Discharge Rx Participant: No New Discharge Prescriptions: No Action Omeprazole 20 mg PO DAILY Folic Acid 1 mg PO DAILY Cevimeline [Evoxac] 30 mg PO BID metHOTREXate sodium [Methotrexate] 25 mg PO Q7D Metoprolol Tartrate 25 mg PO DAILY Levothyroxine Sodium [Levoxyl] 112 mcg PO DAILY HYDROcodone/APAP 10-325MG [Elmer 10-325] 1 tab PO Q6H PRN PRN Reason: Pain Simvastatin [Zocor] 40 mg PO HS Gabapentin 800 mg PO TID Diclofenac Sodium [Voltaren Gel] 2 gram TOPICAL QID PRN PRN Reason: Pain Potassium Chloride ER [K-Dur 20] 20 meq PO DAILY #3 tab Venlafaxine HCl ER [Effexor Xr] 150 mg PO DAILY calcitrioL [Calcitriol] 0.25 mcg PO MOFR Furosemide [Lasix] 20 mg PO DAILY Dexamethasone 6 mg PO DAILY #9 tablet Nitrofurantoin Monohyd/M-Cryst [Macrobid] 100 mg PO Q12HR #14 cap Discharge Medication List Cevimeline [Evoxac] 30 mg PO BID 10/24/15 [History] Folic Acid 1 mg PO DAILY 10/24/15 [History] Levothyroxine Sodium [Levoxyl] 112 mcg PO DAILY 10/24/15 [History] Metoprolol Tartrate 25 mg PO DAILY 10/24/15 [History] Omeprazole 20 mg PO DAILY 10/24/15 [History] metHOTREXate sodium [Methotrexate] 25 mg PO Q7D 10/24/15 [History] HYDROcodone/APAP 10-325MG [Elmer 10-325] 1 tab PO Q6H PRN 06/18/17 [History] Simvastatin [Zocor] 40 mg PO HS 06/18/17 [History] Dexamethasone 6 mg PO DAILY #9 tablet 07/22/20 [Rx] Diclofenac Sodium [Voltaren Gel] 2 gram TOPICAL QID PRN 07/22/20 [History] Furosemide [Lasix] 20 mg PO DAILY 07/22/20 [History] Gabapentin 800 mg PO TID 07/22/20 [History] Nitrofurantoin Monohyd/M-Cryst [Macrobid] 100 mg PO Q12HR #14 cap 07/22/20 [Rx] Potassium Chloride ER [K-Dur 20] 20 meq PO DAILY #3 tab 07/22/20 [Rx] Venlafaxine HCl ER [Effexor Xr] 150 mg PO DAILY 07/22/20 [History] calcitrioL [Calcitriol] 0.25 mcg PO MOFR 07/22/20 [History] Follow up Appointment(s)/Referral(s): Derek Yee MD [STAFF PHYSICIAN] - 3 Weeks Edgardo Rios MD [Primary Care Provider] - 1-2 days Patient Instructions/Handouts: Coronavirus Disease 2019 (COVID-19) Discharge Disposition: - Preliminary Cause of Preliminary Cause of : Respiratory failure you to Covid 19 pneumonia
== END 2020-08-10 19:20 | disposition expired | DRG 177 ==
LOC: EC 14:59 → 4SSUR 16:51
PROVIDERS: ADMIT Family Medicine; ATTEND Family Medicine
PROC: XW033H5 Introduction of Tocilizumab into Peripheral Vein, Percutaneous Approach, New Technology Group 5 (ICD-10-PCS; principal; 2020-07-27)
PROC: XW033E5 Introduction of Remdesivir Anti-infective into Peripheral Vein, Percutaneous Approach, New Technology Group 5 (ICD-10-PCS; principal; 2020-07-27)
PROC: 5A0955A Assistance with Respiratory Ventilation, Greater than 96 Consecutive Hours, High Flow/Velocity Cannula (ICD-10-PCS; 2020-07-31)
PROC: 5A09357 Assistance with Respiratory Ventilation, Less than 24 Consecutive Hours, Continuous Positive Airway Pressure (ICD-10-PCS; 2020-08-08)
PROC: 02HV33Z Insertion of Infusion Device into Superior Vena Cava, Percutaneous Approach (ICD-10-PCS; 2020-08-09)
DX: U07.1 COVID-19 (principal); J12.82 Pneumonia due to coronavirus disease 2019; J96.01 Acute respiratory failure with hypoxia; A41.9 Sepsis, unspecified organism; R65.21 Severe sepsis with septic shock; E44.1 Mild protein-calorie malnutrition; N39.0 Urinary tract infection, site not specified; N17.9 Acute kidney failure, unspecified; D72.810 Lymphocytopenia; E03.9 Hypothyroidism, unspecified; Z68.28 Body mass index [BMI] 28.0-28.9, adult; E78.5 Hyperlipidemia, unspecified; E86.0 Dehydration; E87.6 Hypokalemia; F32.9 Major depressive disorder, single episode, unspecified; F43.20 Adjustment disorder, unspecified; I10 Essential (primary) hypertension; I25.10 Atherosclerotic heart disease of native coronary artery without angina pectoris; I27.20 Pulmonary hypertension, unspecified; R79.89 Other specified abnormal findings of blood chemistry; R79.1 Abnormal coagulation profile; Z66 Do not resuscitate; Z51.5 Encounter for palliative care; G62.9 Polyneuropathy, unspecified; M32.9 Systemic lupus erythematosus, unspecified; I08.1 Rheumatic disorders of both mitral and tricuspid valves; M19.90 Unspecified osteoarthritis, unspecified site; R94.31 Abnormal electrocardiogram [ECG] [EKG]; K21.9 Gastro-esophageal reflux disease without esophagitis; M35.00 Sjogren syndrome, unspecified; R53.83 Other fatigue; Z60.2 Problems related to living alone; E87.70 Fluid overload, unspecified; Z79.01 Long term (current) use of anticoagulants; Z63.4 Disappearance and death of family member; Z79.82 Long term (current) use of aspirin; Z79.890 Hormone replacement therapy; Z79.899 Other long term (current) drug therapy; Z86.718 Personal history of other venous thrombosis and embolism; Z86.73 Personal history of transient ischemic attack (TIA), and cerebral infarction without residual deficits; Z87.891 Personal history of nicotine dependence; Z90.49 Acquired absence of other specified parts of digestive tract; Z90.710 Acquired absence of both cervix and uterus; Z95.5 Presence of coronary angioplasty implant and graft; Z90.89 Acquired absence of other organs; Z98.890 Other specified postprocedural states; Z53.29 Procedure and treatment not carried out because of patient's decision for other reasons; Z98.49 Cataract extraction status, unspecified eye
CPT/HCPCS: 36415; 36573; 71045; 71275; 80048; 80053; 81001; 82728; 83605; 83615; 83735; 84145; 84484; 85025; 85027; 85379; 85610; 85730; 86140; 87040; 87086; 87635; 93005; 93306; 93970; 94660; 94760; 99285